=== PATIENT | male | born 1945 | race Caucasian/White ===

== ENCOUNTER 2016-09-23 15:56 | Inpatient (IN) | payer MEDICARE, BC ==
[2016-09-23] MEDS ORDERED: ASPIRIN 81 MG TAB.CHEW ONE (16:05)
[2016-09-23] MEDS ORDERED: ONDANSETRON HCL/PF 2 MG/ML VIAL IV ONE (16:10)
--- NOTE | 2016-09-23 16:13 | ERNOTE ---
Dyspnea - General Presenting Symptoms: shortness of breath Time Seen by Provider: 09/23/16 16:03 Source: patient - Immun/Allergies/Home Medications Immunizations: IMMUNIZATION HX Immunizations Up to Date Yes History of Influenza Vaccine Yes Hx Pneumococcal Vaccination Yes Allergies/Adverse Reactions: Allergies cephalexin Allergy (Verified 09/23/16 16:04) codeine Allergy (Verified 09/23/16 16:04) Iodinated Contrast Media - IV Dye Allergy (Verified 09/23/16 16:04) prednisone Allergy (Verified 09/23/16 16:04) simvastatin Allergy (Verified 09/23/16 16:04) Home Medications: HOME MEDICATIONS ALPRAZolam [Xanax] 0.25 mg PO HS 09/23/16 [Last Taken Unknown] Albuterol Sulfate [Ventolin Hfa] 1 puff IH Q6H 09/23/16 [Last Taken Unknown] Arformoterol Tartrate [Brovana] 15 mcg IH BID 09/23/16 [Last Taken Unknown] Budesonide [Pulmicort Respules] 2 ml IH BID 09/23/16 [Last Taken Unknown] Cyanocobalamin [Vitamin B-12] 1,000 mcg PO DAILY 09/23/16 [Last Taken Unknown] Cyclobenzaprine HCl 10 mg PO BID 09/23/16 [Last Taken Unknown] Escitalopram Oxalate [Lexapro] 20 mg PO DAILY 09/23/16 [Last Taken Unknown] Ipratropium [place] 0.2 mg IH QID 09/23/16 [Last Taken Unknown] Meclizine HCl [Antivert] 25 mg PO QID PRN 09/23/16 [Last Taken Unknown] Metoprolol Tartrate [Lopressor] 50 mg PO DAILY 09/23/16 [Last Taken Unknown] Nitroglycerin [Nitrostat] 1 tab SL Q5M 09/23/16 [Last Taken Unknown] Pantoprazole Sodium 40 mg PO DAILY 09/23/16 [Last Taken Unknown] Prednisone [Zac] 5 mg PO DAILY 09/23/16 [Last Taken Unknown] Tamsulosin HCl [Flomax] 0.4 mg PO DAILY 09/23/16 [Last Taken Unknown] Tramadol HCl [Rybix Odt] 50 mg PO Q6H PRN 09/23/16 [Last Taken Unknown] clonazePAM [Klonopin] 0.5 mg PO BID 09/23/16 [Last Taken Unknown] traZODone HCL [Desyrel] 100 mg PO HS 09/23/16 [Last Taken Unknown] - History of Present Illness Narrative: Patient felt acid come up his throat and then go down his throat again, with that he started to cough, feel very short of breath and have right sided chest pain. He has been using nebulizer treatments non stop since (12 hours) and is very anxious, dizzy and scared. He has a history of esophageal cancer that was treated with resection and using his stomach to replace it as well as a lobe resection of his lung. No further details available at this time Date (Duration): 09/23/16 Time (Timing): 03:00 Severity: severe Treatment PARTNER MARKETING INTERN: by patient, albuterol Initiating event: Reports: other Frequency of episodes: Reports: occassional episodes Review of Systems - Review of Systems Constitutional: Absent: recent illness, fever ENT: Present: sore throat Respiratory: Present: shortness of breath Cardiology: Present: chest pain Gastrointestinal/Abdominal: Present: See HPI Genitourinary: Present: no symptoms reported Neurological: Absent: headache - Patient's Past Medical History Patient History - Medical: Anxiety, GERD Patient History - Cardiac/Respiratory: Coronary Heart Disease, COPD, Hypertension, Hyperlipidemia, Myocardial Infarction, Home O2 Use Patient History - Cancer: Esophageal, Surgical Treatment Patient History - Surgical Procedures: Coronary Bypass Surgery, Other - Social History Smoking Status: Former smoker - Immunizations Immunizations Up to Date: Yes Hx Pneumococcal Vaccination: Yes History of Influenza Vaccine: Yes Physical Exam - Physical Exam General Appearance: Present: wd/wn, alert, moderate distress, anxious Eye Exam: Normal inspection: bilateral, PERRL: bilateral Neck: Present: normal inspection Respiratory: Present: no accessory muscle use, chest nontender, lungs clear, decreased breath sounds Cardiovascular/Chest: Present: tachycardia Gastrointestinal/Abdominal: Present: nontender, soft Extremity Exam: Present: no edema Neurological Exam: Present: alert, oriented, normal mood/affect Skin Exam: Present: normal color, warm/dry ED Progress - Results and Orders Patient's Lab Results:: I have reviewed the patient's lab results. - Vital Signs Patient's Vital Signs:: I have reviewed the patient's vital signs. Vital Signs: Vital Signs 09/23/16 15:58 Pulse Rate 131 H Respiratory 37 H Rate O2 Sat by Pulse 92 Oximetry - EKG EKG: NSR - sinus tachy, nonspecific ST T wave changes EKG read: Interp. by me - X-Ray X-Ray #1 X-Ray: chest - chronic changes, no definite infiltrate Interpretation: Interp. by me - Progress/Reassessment Chief Complaint: Dyspnea Progress Note-Subjective: 09/23/16 16:48 patient calmer, feeling slightly better discussed prednisone, patient does not remember being allergic to it and agrees to try it 09/23/16 17:37 patient much calmer ,discussed results 09/23/16 17:[address] Mccollum, okay to admit for aspiration pneumonia, start meropenim 09/23/16 19:25 patient calm, discussed admission Departure Clinical Impression: Aspiration pneumonia due to gastric secretions Qualifiers: Laterality: right Lung location: unspecified part of lung Qualified Code(s): J69.0 - Pneumonitis due to inhalation of food and vomit - Departure Disposition: [facility] Condition: Fair
[2016-09-23 16:27] LABS: Hematocrit 39.1 % (42.0-52.0); Hemoglobin 13.3 gm/dL (13.5-18.0); Mean Cell Volume 90.9 fl (78-100); Mean Corpuscular Hemoglobin 30.9 pg (27-31); Mean Platelet Volume 9.9 fl (6.0-9.5); Neutrophil # 12.1 K/mm3 (1.3-6.0); Neutrophil % 83.3 % (42-75.0); Platelet Count 195 K/mm3 (150-450); Red Cell Distribution Width 12.8 % (11.5-14.0); White Blood Count 14.5 K/mm3 (4.0-10.5)
--- OUTSIDE RECORDS SUMMARY | 2016-09-23 16:35 | XMS REPORT | Continuity of Care Document ---
:1945 Author Organization [employer] [place] [address] Care Team Providers Name Role Phone Justin Abad V Primary Care Provider [phone] Source Comments This disclosure is being made pursuant to the [employer] program and maynot contain all information available regarding this patient.[employer] Active Allergies and Adverse Reactions Allergen Noted Date Severity Reactions Comments Cephalexin 02/02/2012 High Hives,Nausea And Vomiting Codeine 02/02/2012 Low Nausea Only,Other (See pruritis Comments) Contrast 08/20/2012 High Anaphylaxis,Hives,Other Note: IV iodinated (See Comments) contrast material. CODED Prednisone 08/31/2015 Other (See Comments) Note: Emotional upset - use prednisone if really needs it for lungs. Simvastatin 08/31/2015 Medium Electrolyte Imbalance Current Medications Be aware that medications may not be up to date as of this document. Alwaysverify current medications with the patient. Prescription Sig. Disp. Refills Start Date End Date Status meclizine (ANTIVERT) Take 25 mg by Active 25 MG tablet mouth 3 (three) times daily as needed. Indications: Sensation of Spinning or Whirling Cyanocobalamin Inject 1,000 mg as 12/03/2012 Active (VITAMIN B-12 IJ) directed every 30 (thirty) days. 3rd of each month albuterol (PROVENTIL Inhale 2 puffs Active HFA;VENTOLIN HFA) 108 into the lungs 4 (90 BASE) MCG/ACT (four) times inhaler daily. May sub per insurance Indications: Exercise-Induced Bronchospasm oxygen Inhale 3 L/min Active into the lungs nightly. arformoterol Take 2 mLs by 115 mL 6 02/05/2016 Active (BROVANA) 15 MCG/2ML nebulization 2 NEBU (two) times daily. Take 2 mL (15 mcg total) by nebulization 2 (two) times daily. nitroGLYCERIN Place 1 tablet 25 tablet 3 03/19/2016 Active (NITROSTAT) 0.4 MG SL under the tongue tablet every 5 (five) minutes as needed. X 3 doses Indications: Acute Angina Pectoris ipratropium Take 0.5 mg by Active (ATROVENT) 0.02 % nebulization 4 nebulizer solution (four) times daily. tamsulosin HCl Take 1 capsule by 30 capsule 1 04/24/2016 Active (FLOMAX) 0.4 MG mouth daily. capsule clonazePAM (KLONOPIN) Take 1 tablet by 60 tablet 1 04/24/2016 Active 0.5 MG tablet mouth every 12 (twelve) hours. Indications: Feeling Anxious traZODone (DESYREL) Take 2 tablets by 60 tablet 1 04/24/2016 Active 100 MG tablet mouth nightly. acetaminophen Take 2 tablets by 100 tablet 1 04/24/2016 Active (TYLENOL) 325 MG mouth daily. tablet budesonide Take 2 mLs by 60 mL 1 04/24/2016 Active (PULMICORT) 0.5 nebulization 2 MG/2ML nebulizer (two) times daily. solution Rinse mouth after use. pantoprazole Sodium Take 40 mg by Active (PROTONIX) 40 MG pack mouth 2 (two) times daily. cyclobenzaprine Take 5 mg by mouth Active (FLEXERIL) 5 MG 3 (three) times tablet daily as needed for Muscle spasms. escitalopram Take 20 mg by Active (LEXAPRO) 20 MG mouth daily. tablet metoprolol succinate Take 50 mg by Active (TOPROL-XL) 50 MG 24 mouth daily. hr tablet traMADol (ULTRAM) 50 Take 1 tablet by 80 tablet 0 08/07/2016 Active MG tablet mouth every 6 (six) hours as needed. 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 H/O: CVA (cardiovascular accident) 08/23/2012 CAD Hypertension COPD (chronic obstructive pulmonary disease) ([facility]) Sleep apnea Overview: Oxygen at night 2 1/2 LITERS Resolved Problems Problem Noted Date Resolved Date Chest pain 07/23/2013 08/12/2013 Partial tear of rotator cuff(726.13) 03/01/2013 08/12/2013 Overview: right GERD (gastroesophageal reflux disease) 01/18/2013 08/12/2013 Fall 12/04/2012 08/12/2013 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 CVA (cerebral infarction) 08/19/2012 08/19/2012 Rhabdomyolysis 08/19/2012 08/13/2013 GERD (gastroesophageal reflux disease) 02/03/2012 08/12/2013 Zamudio's esophagus 02/03/2012 08/12/2013 Sleep apnea 08/13/2013 Overview: Oxygen at night 2 1/2 LITERS Most Recent Encounters Date Type Specialty Providers Description 09/11/2016 Telephone Neurosurgery Karen Harris, Results CORRECTIONS SPECIALIST 09/11/2016 Scanned Document Pulmonology Stephan Stauffer MD 09/10/2016 Hospital Encounter Radiology Neck pain 09/10/2016 Office Visit Neurosurgery Melinda Oscar MD Neck pain (Primary Dx); Failed spinal cord stimulator, sequela 09/10/2016 Telephone Pulmonology Libertad Cruz, Riki - nebulizer RN records medical necessity 09/10/2016 Ancillary Orders Neurosurgery Melinda Oscar MD Neck pain ( Primary Dx) 08/21/2016 Clinical Support Neurosurgery Karen Harris, Encounter for staple CORRECTIONS SPECIALIST removal (Primary Dx) 08/07/2016 Surgery Melinda Oscar MD REMOVE NEUROSTIMULATOR SPINAL CORD 08/06/2016 Anesthesia Event Melinda Serna MD 07/17/2016 Data Import 07/14/2016 Telephone Neurosurgery Wero Stewart RN Other 07/14/2016 Telephone Cardiology Kassandra Jimenez RN Other - EKG review by Dr Flores, pre surgery 07/14/2016 Scanned Document Pulmonology Melinda Salazar ARNP 07/14/2016 Scanned Document Pulmonology Melinda Salazar ARNP 07/09/2016 Hospital Encounter Cardiology Jarred Mackenzie, Failed spinal cord PA-C stimulator, initial encounter ([facility]) 07/09/2016 Hospital Encounter Radiology Jarred Mackenzie, Failed spinal cord PA-C stimulator, initial encounter ([facility]) 07/09/2016 Hospital Encounter Lab Jarred Mackenzie, Failed spinal cord PA-C stimulator, initial encounter ([facility]) 07/09/2016 Office Visit Pulmonology Melinda Salazar, Pulmonary emphysema, PROCUREMENT ANALYST unspecified emphysema type ([facility]) (Primary Dx); Gastroesophageal reflux disease with esophagitis; Preop respiratory exam; Personal history of nicotine dependence; Failed spinal cord stimulator, 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/2016 Transcribe Orders Jarred Mackenzie, Mechanical complication PA-C of dorsal column stimulator ([facility]) (Primary Dx) Immunizations Name Dates Previously Given Next Due Influenza High 05/06/2015 Influenza Split 05/17/2013,04/03/2012 Influenza, Inactivated, Trivalent, High Dose, 65Y and 05/28/2016 Older Pneumococcal Conjugate-13 07/25/2014 Pneumococcal Polysaccharide-23 08/19/2009 Tdap 12/04/2012 Social History Tobacco Use Types Packs/Day Years Used Date Former Smoker Cigarettes 2 45 Quit: 02/03/2000 Smokeless Tobacco: Never Used Tobacco Cessation:Counseling Given: Yes Comments: Alcohol Use Drinks/Week oz/Week Comments Yes 0 Standard drinks or equivalent 0.0 3-4 beers per week in the summer and on special occassions Last Filed Vital Signs Vital Sign Reading Time Taken Blood Pressure 136/86 09/10/2016 12:56 PM BORDEREAU CLERK Pulse 80 09/10/2016 12:56 PM BORDEREAU CLERK Temperature 36.5 C (97.7 F) 09/10/2016 12:56 PM BORDEREAU CLERK Respiratory Rate 16 09/10/2016 12:56 PM BORDEREAU CLERK Height 1.854 m (6' 1") 09/10/2016 12:56 PM BORDEREAU CLERK Weight 76.204 kg (168 lb) 09/10/2016 12:56 PM BORDEREAU CLERK Body Mass Index 22.17 09/10/2016 12:56 PM BORDEREAU CLERK Oxygen Saturation 95% 08/07/2016 11:30 AM BORDEREAU CLERK Plan of Care Patient Goal Type Goal Blood Pressure Blood Pressure below 140/90 Date Type Specialty Providers Description 12/16/2016 Appointment Pulmonology 12/16/2016 Appointment Pulmonology Melinda Salazar, [address]O [address] [address] [phone] (Fax) Health Maintenance Due Date Last Done Comments Hepatitis C Screening 1963 Well Adult Visit 1997 Zoster Vaccine 60+ 2007 Pneumococcal Low/Medium Risk 07/25/2015 07/25/2014, 65+ (2 of 2 - PPSV23) 08/19/2009 Tetanus/Pertussis (2 - Td) 12/04/2022 12/04/2012 Colonoscopy 05/08/2024 05/08/2014 AAA Screening (Medicare Completed 04/14/2016 Covered) Influenza Immunization Completed 05/28/2016, Additional history exists 05/06/2015, 05/17/2013 Procedures from Last 3 Months Procedure Name Priority Date/Time Associated Comments Diagnosis ANESTHESIA RECORD 08/08/2016 4:08 Results for this SCANNED PM BORDEREAU CLERK procedure are in the results section. REMOVE NEUROSTIMULATOR 08/07/2016 7:30 Failed spinal cord SPINAL CORD AM BORDEREAU CLERK stimulator (HCC) Case Notes H&P [facility] [id number] Special Needs [employer] Results from Last 3 Months XR CERVICAL SPINE 4 OR 5 VIEWS (09/10/2016 2:15 PM) Narrative EXAM: DX SPINE CERVICAL 4 OR 5 VIEWS CLINICIAN'S HISTORY: neck pain HISTORY REPORTED TO TECHNOLOGIST:Patient states pain in the center of his neck, fell from a ladder 3 weeks ago COMPARISON: CT scan of the cervical spine 12/04/2012 FINDINGS:Lateral neutral, flexion, extension and swimmer's views were obtained. Frontal and open mouth odontoid views were obtained. The prevertebral soft tissues are normal. The posterior spinal-laminal line appears contiguous. There is no obvious fracture or traumatic subluxation. Flexion and extension views preserved alignment. There is no spondylolisthesis or subluxation. Severe narrowing of the C3-C4, C4-C5 and C5-C6 disc spaces is noted. There is multilevel cervical spondylosis. The odontoid process is intact. The apices of the lungs are clear. Some calcified atherosclerotic disease is seen in the right carotid bifurcation. IMPRESSION: 1. Severe progressive cervical spondylosis C3-C4 through C6-C7. 2. No obvious fracture or traumatic subluxation. Electronically signed by: Hardy Salazar - 09/10/2016 2:59 PM Procedure Note Sachin, [facility] - Wed Sep 10, 2016 3:02 PM BORDEREAU CLERK EXAM: DX SPINE CERVICAL 4 OR 5 VIEWS CLINICIAN'S HISTORY: neck pain HISTORY REPORTED TO TECHNOLOGIST: Patient states pain in the center of his neck, fell from a ladder 3 weeks ago COMPARISON: CT scan of the cervical spine 12/04/2012 FINDINGS: Lateral neutral, flexion, extension and swimmer's views were obtained. Frontal and open mouth odontoid views were obtained. The prevertebral soft tissues are normal. The posterior spinal-laminal line appears contiguous. There is no obvious fracture or traumatic subluxation. Flexion and extension views preserved alignment. There is no spondylolisthesis or subluxation. Severe narrowing of the C3-C4, C4-C5 and C5-C6 disc spaces is noted. There is multilevel cervical spondylosis. The odontoid process is intact. The apices of the lungs are clear. Some calcified atherosclerotic disease is seen in the right carotid bifurcation. IMPRESSION: 1. Severe progressive cervical spondylosis C3-C4 through C6-C7. 2. No obvious fracture or traumatic subluxation. Electronically signed by: Hardy Salazar - 09/10/2016 2:59 PM ANESTHESIA RECORD SCANNED (08/08/2016 4:08 PM)PROTIME-INR (08/07/2016 6:23 AM) Component Value Range Protime 9.9 9.3-11.7 sec INR 1.0Comment: 0.9-1.1 If patient is on warfarin, then suggested therapeutic range is: VENOUS THROMBOSIS=2.0-3.0 PULMONARY EMBOLISM=2.0-3.0 ATRIAL FIBRILLATION=2.0-3.0 MECHANICAL HEART VALVE,AORTIC=2.0-3.0 MECHANICAL HEART VALVE,MITRAL=2.5-3.5 BIOPROSTHETIC VALVE, MITRAL FOR 3 MONTHS POST OP=2.0-3.0 RECURRENT SYSTEMIC EMBOLISM=2.5-3.5 For more information, see S Warfarin Prescribing Information. Test Performed at [facility], [address] [place]. APTT (08/07/2016 6:23 AM) Component Value Range PTT 22.5Comment:Test Performed at [facility], [address], [place], [place]. EKG VIEW FINAL (07/09/2016 1:18 PM)EKG 12 lead (07/09/2016 1:11 PM)Urinalysis with Reflex Testing (07/09/2016 1:00 PM) Component Value Range Specimen,UR CLN CATCH Color STRAW STRAW Clarity CLEAR CLEAR Glucose, Urinalysis NEG NEG mg/dL Bilirubin Urine NEG NEG Ketones, UA NEG NEG mg/dL Specific Burns 1.019 1.005-1.030 Blood NEG NEG pH 5.0 5.0-8.0 Protein NEG NEG mg/dL Urobilinogen 0.2 0.2-1.0 EU/dL Nitrite NEG NEG Leukocyte Esterase, UA NEG NEG Comment NONEComment:Test Performed at [facility], [address], [place], [place]. Specimen Cln Catch XR CHEST 2 VIEWS PA AND LAT (07/09/2016 12:59 PM) Narrative EXAM: DX CHEST PA + LATERAL CLINICIAN'S HISTORY: pre op clearance- former smoker HISTORY REPORTED TO TECHNOLOGIST:with emphysema. COMPARISON: Chest x-ray 10/03/2014 FINDINGS: No acute airspace consolidation. Postsurgical changes right hemithorax are stable with status post post gastric pull through for esophageal cancer. Status post CABG, this is unchanged as well. Small right pleural effusion and/or pleural thickening have not significantly changed. Elevation left hemidiaphragm is stable. Minimal associated atelectasis lower chest. Heart size and pulmonary vascularity within normal limits. Emphysema. No other significant change. IMPRESSION: 1. No acute airspace consolidation. 2. Chronic changes bilaterally are stable. Electronically signed by: Angélica Kilgore MD - 07/09/2016 1:16 PM Procedure Note Sachin, [facility] - ThuJul 09, 2016 1:18 PM BORDEREAU CLERK EXAM: DX CHEST PA + LATERAL CLINICIAN'S HISTORY: pre op clearance- former smoker HISTORY REPORTED TO TECHNOLOGIST: with emphysema. COMPARISON: Chest x-ray 10/03/2014 FINDINGS: No acute airspace consolidation. Postsurgical changes right hemithorax are stable with status post post gastric pull through for esophageal cancer. Status post CABG, this is unchanged as well. Small right pleural effusion and/or pleural thickening have not significantly changed. Elevation left hemidiaphragm is stable. Minimal associated atelectasis lower chest. Heart size and pulmonary vascularity within normal limits. Emphysema. No other significant change. IMPRESSION: 1. No acute airspace consolidation. 2. Chronic changes bilaterally are stable. Electronically signed by: Angélica Kilgore MD - 07/09/2016 1:16 PM CBC and differential (07/09/2016 12:40 PM) Component Value Range WBC 7.4 4.5-11.0 th/mm3 RBC 4.26(L) 4.54-5.77 mill/mm3 Hemoglobin 13.2(L) 14.0-17.7 g/dL Hematocrit 39.4(L) 40.0-52.0 % MCV 92.5 82.0-99.0 fL MCH 31.0 27.0-32.0 pg MCHC 33.5 32.0-36.0 g/dL Platelets 193 150-400 th/mm3 RDW 44.3 39.6-47.4 fL NRBC Absolute 0.00 0.00 th/mm3 Neutrophil % 60.0 35.0-65.0 % Neutrophils Absolute Count 4.43 1.30-6.00 th/mm3 Lymphocytes % 25.9 23.0-45.0 % Lymphocytes Absolute 1.91 1.50-3.50 th/mm3 Monocyte % 9.5 0.0-10.0 % Monos Absolute 0.70 <1.0 th/mm3 Eosinophils Relative % 3.3(H) 1.0-3.0 % Eosinophils Absolute Count 0.24 <0.7 th/mm3 Basophils % 0.9 0.0-1.0 % Basophils Absolute 0.07 <0.1 th/mm3 Immature Neutro % 0.4 0.0-1.0 % Immature Neutro 0.03Comment:Test Performed at . th/[address], [address], [place], [place]. Basic metabolic panel (07/09/2016 12:40 PM) Component Value Range Sodium 140 136-145 mmol/L Potassium 4.2 3.5-5.0 mmol/L Chloride 103 95-110 mmol/L CO2 31 21-32 mmol/L Glucose 96 70-99 mg/dL BUN, Blood 12 7-23 mg/dL Creatinine, Serum 1.00Comment:The analysis was performed 0.51-1.17 mg/dL using an isotope dilution mass spectrometry (IDMS) traceable methodology. Calcium 8.5 8.5-10.1 mg/dL Anion Gap 6 6-20 mmol/L BUN/Creatinine Ratio 12.0 10.0-24.0 Osmolality Calculated 279 275-295 mosm/Kg EGFR Non-/Andorran >60Comment: >60 GFR REFERENCE RANGE: >60 mL/min/1.73m2 -- An eGFR of > than, or=to 60, may indicate normal renal function or mildly decreased GFR. EGFR /Andorran >60Comment: >60 -- An eGFR of > than, or=to 60, may indicate normal renal function or mildly decreased GFR. Test Performed at [facility], [address], [place], [place].
--- OUTSIDE RECORDS SUMMARY | 2016-09-23 16:35 | XMS REPORT | Continuity of Care Document ---
:1945 Author Organization [facility] ([facility]) Address [address] [place] [address] Phone [phone] Care Team Providers Name Role Phone Alix Modi Primary Care Provider [phone] Source Comments This disclosure is being made pursuant to the Care Everywhere program, applicable federal and state laws, and may not contain all informaitonavailable regarding this patient.[facility] ([facility]) Active Allergies and Adverse Reactions Allergen Noted Date Severity Reactions Comments Cephalexin Nausea & Vomiting Codeine Nausea & Vomiting Current Medications Prescription Sig. Disp. Refills Start Date End Date Status atenolol 50 mg tablet Take 50 mg by mouth Active daily. clopidogrel (PLAVIX) 75 Take 75 mg by mouth Active mg tablet daily. Cyanocobalamin (VITAMIN place under the Active B-12) 1,000 mcg Subl tongue every month. ALBUTEROL INH Use by inhalation 4 Active times daily. budesonide (PULMICORT) Use 500 mcg by Active 0.5 mg/2 mL nebulizer inhalation 4 times suspension daily. zolpiDEM (AMBIEN) 5 mg Take 5 mg by mouth Active tablet at bedtime as needed. FORMOTEROL FUMARATE Use by inhalation 2 Active (FORADIL AEROLIZER INH) times daily. IPRATROPIUM BROMIDE use into the nose 4 Active (ATROVENT NA) times daily. omeprazole 40 mg Take 40 mg by mouth Active capsule daily. simvastatin 80 mg Take 80 mg by mouth Active tablet every evening. Theophylline 300 mg Tab Take 300 mg by mouth Active 2 times daily. ALPRAZolam 0.25 mg Take 0.25 mg by Active tablet mouth at bedtime as needed. tadalafil (CIALIS) 20 Take 20 mg by mouth Active mg tablet as needed. aspirin 81 mg EC tablet Take 81 mg by mouth Active daily. oxyCODONE-acetaminophen Take 1-2 Tabs by 60 Tab 0 02/21/2011 Active 5-325 mg per tablet mouth every 4 hours as needed for Pain. Indications: Pain trimethoprim-sulfametho Take 1 Tab by mouth 28 Tab 0 02/21/2011 Active xazole 160-800 mg per every 12 hours. tablet Indications: Bacterial Urinary Tract Infection sennosides (SENNA) 8.6 Take 1 Tab by mouth 30 Tab 11 02/21/2011 Active mg tablet daily. Indications: Bowel Evacuation, Constipation docusate 100 mg capsule Take 1 Cap by mouth 60 Cap 11 02/21/2011 Active 2 times daily. Indications: Constipation Active Problems Not on file Immunizations Name Dates Previously Given Next Due Td, adult unspecified 08/25/1996 Social History Tobacco Use Types Packs/Day Years Used Date Former Smoker Cigarettes Alcohol Use Drinks/Week oz/Week Comments Yes occasional Last Filed Vital Signs Vital Sign Reading Time Taken Blood Pressure 123/73 04/04/2011 2:30 PM CDT Pulse 74 04/04/2011 2:30 PM CDT Temperature 36.2 C (97.2 F) 04/04/2011 2:30 PM CDT Respiratory Rate 16 02/22/2011 4:00 AM CDT Height 1.81 m (5' 11.26") 02/20/2011 12:55 PM CDT Weight 78 kg (171 lb 15.3 oz) 02/20/2011 12:55 PM CDT Body Mass Index 23.81 02/20/2011 12:55 PM CDT Oxygen Saturation 92% 02/22/2011 4:00 AM CDT Plan of Care Health Maintenance Due Date Last Done Comments HCV Screening 1945 Hepatitis B Vaccine (1 of 3 - Primary 1945 Series) Tdap Vaccine 1956 Colonoscopy 03/12/1997 Prostate Cancer Screening 1997 Lipid Disorder Screening 05/15/2003 05/15/1998, 08/14/1997 Td Vaccine 08/25/2006 08/25/1996 Zoster Vaccine 2007 Pneumococcal Vaccine (1 of 2 - PCV13) 2012 Influenza Vaccine: Seasonal (#1) 03/03/2016 Results from Last 3 Months Not on file
[2016-09-23] MEDS ORDERED: ONDANSETRON HCL/PF 2 MG/ML VIAL ONE (16:39)
[2016-09-23 16:47] LABS: ALT 31 U/L (19-67); AST 32 U/L (0-48); Albumin * 3.8 gm/dl (3.4-5.0); Alkaline Phosphatase * 59 U/L (50-170); Anion Gap 14.7 mmol/L (6.8-13.8); BNP * 412 pg/mL (5-350); BUN/Creatinine Ratio 10.3 (9.0-21.6); Bilirubin, Total 0.7 mg/dL (0.0-1.1); Blood Urea Nitrogen 10 mg/dL (6-23); Ca. Corrected For Albumin 9.5 mg/dL (8.4-10.2); Calcium * 9.7 mg/dL (7.9-10.9); Carbon Dioxide 25.6 mmol/L (24-32.6); Chloride 103 mmol/L (97-106); Glucose * 123 mg/dL (70-110); Potassium 4.3 mmol/L (3.4-4.6); Sodium 139 mmol/L (132-142); Total Protein 7.3 gm/dL (6.2-8.2)
[2016-09-23] MEDS ORDERED: METHYLPREDNISOLONE SOD SUCC/PF 125 MG/2 ML VIAL IV ONE (16:49)
[2016-09-23 16:52] LABS: Troponin I Less than 0.017 ng/ml (0.00-0.10)
[2016-09-23] MEDS ORDERED: METHYLPREDNISOLONE SOD SUCC/PF 125 MG/2 ML VIAL ONE (17:16)
[2016-09-23] MEDS ORDERED: MECLIZINE HCL 25 MG TABLET PO PRN (17:48)
[2016-09-23] MEDS ORDERED: ALBUTEROL SULFATE 2.5 MG/0.5 ML VIAL.NEB IH PRN (17:51)
--- OUTSIDE RECORDS SUMMARY | 2016-09-23 17:52 | XMS REPORT | Continuity of Care Document ---
:1945 Author Organization [facility] ([facility]) Address [address] [place] [address] Phone [phone] Care Team Providers Name Role Phone Alix Modi Primary Care Provider [phone] Source Comments This disclosure is being made pursuant to the Care Everywhere program, applicable federal and state laws, and may not contain all informaitonavailable regarding this patient.[facility] ([facility]) Active Allergies and Adverse Reactions Allergen Noted [...]
--- OUTSIDE RECORDS SUMMARY | 2016-09-23 17:52 | XMS REPORT | Continuity of Care Document ---
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 Gait abnormality 04/18/2016 Abdominal aortic aneurysm ([facility]) 04/14/2016 Hyperlipidemia 08/31/2015 Palpitations 08/31/2015 Depressive disorder, not elsewhere classified 04/05/2015 Depressed 04/03/2015 Suicide attempt ([facility]) 04/03/2015 Hemoptysis 10/03/2014 Sepsis ([facility]) 08/28/2013 Urinary tract infection, site not specified 08/28/2013 COPD (chronic obstructive pulmonary disease) ([facility]) 08/28/2013 Diarrhea 08/28/2013 Zamudio's esophagus 01/18/2013 H/O: CVA (cardiovascular accident) 08/23/2012 CAD Hypertension COPD (chronic obstructive pulmonary disease) ([facility]) Sleep apnea Overview: Oxygen at night 2 [...] Description 09/11/2016 Telephone Neurosurgery Karen Harris, Results DRUM STENCILER 09/11/2016 Scanned Document Pulmonology Stephan Stauffer MD 09/10/2016 Hospital Encounter Radiology Neck pain 09/10/2016 Office Visit Neurosurgery Melinda Oscar MD Neck pain (Primary Dx); Failed spinal cord stimulator, sequela 09/10/2016 Telephone Pulmonology Libertad Cruz, Riki - nebulizer RN records medical necessity 09/10/2016 Ancillary Orders Neurosurgery Melinda Oscar MD Neck pain ( Primary Dx) 08/21/2016 Clinical Support Neurosurgery Karen Harris, Encounter for staple DRUM STENCILER removal (Primary Dx) 08/07/2016 Surgery Melinda Oscar [...] Failed spinal cord PA-C stimulator, initial encounter ([facility]) 07/09/2016 Hospital Encounter Radiology Jarred Mackenzie, Failed spinal cord PA-C stimulator, initial encounter ([facility]) 07/09/2016 Hospital Encounter Lab Jarred Mackenzie, Failed spinal cord PA-C stimulator, initial encounter ([facility]) 07/09/2016 Office Visit Pulmonology Melinda Salazar, Pulmonary emphysema, [employer]PERVIS[employer] MARBLE unspecified emphysema type ([facility]) (Primary Dx); Gastroesophageal reflux disease with esophagitis; Preop respiratory exam; Personal history of nicotine dependence; Failed spinal cord stimulator, 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/2016 Transcribe Orders Jarred Mackenzie, Mechanical complication PA-C of dorsal column stimulator ([facility]) (Primary Dx) Immunizations Name Dates Previously Given [...] Taken Blood Pressure 136/86 09/10/2016 12:56 PM [facility] [employer] [facility] Pulse 80 09/10/2016 12:56 PM [employer] [employer] [facility] Temperature 36.5 C (97.7 F) 09/10/2016 12:56 PM [facility] [employer] [facility] Respiratory Rate 16 09/10/2016 12:56 PM [facility] [employer] [facility] Height 1.854 m (6' 1") 09/10/2016 12:56 PM [facility] [employer] [facility] Weight 76.204 kg (168 lb) 09/10/2016 12:56 PM [facility] [employer] [facility] Body Mass Index 22.17 09/10/2016 12:56 PM [facility] [employer] [facility] Oxygen Saturation 95% 08/07/2016 11:30 AM [facility] [employer] [facility] Plan of Care Patient Goal Type Goal Blood Pressure Blood Pressure below 140/90 Date Type Specialty Providers Description 12/16/2016 Appointment Pulmonology 12/16/2016 Appointment Pulmonology Melinda Salazar, LOBO [address] [address] [phone] (Fax) Health Maintenance Due Date Last Done [...] 08/08/2016 4:08 Results for this SCANNED PM [employer] procedure are in the results section. REMOVE NEUROSTIMULATOR 08/07/2016 7:30 Failed spinal cord SPINAL CORD AM [employer] stimulator (HCC) Case Notes H&P [facility]ar[facility] [id number] Special Needs [employer] Results from Last 3 [...] - Wed Sep 10, 2016 3:02 PM [facility] [employer] [facility] EXAM: DX SPINE CERVICAL 4 OR 5 [...] S Warfarin Prescribing Information. Test Performed at [facility], [address] [place]. APTT (08/07/2016 6:23 AM) Component Value Range PTT 22.5Comment:Test Performed at [facility], [address], [place], [place]. EKG VIEW FINAL (07/09/2016 1:18 PM)EKG 12 lead (07/09/2016 1:11 PM)Urinalysis with Reflex Testing (07/09/2016 1:00 PM) Component Value Range Specimen,UR CLN CATCH Color STRAW STRAW Clarity CLEAR CLEAR Glucose, Urinalysis NEG NEG mg/dL Bilirubin Urine NEG NEG Ketones, UA NEG NEG mg/dL Specific [place] 1.019 1.005-1.030 Blood NEG NEG pH 5.0 5.0-8.0 Protein NEG NEG mg/dL Urobilinogen 0.2 0.2-1.0 EU/dL Nitrite NEG NEG Leukocyte Esterase, UA NEG NEG Comment NONEComment:Test Performed at [facility], [address], [place], [place]. Specimen Cln Catch XR CHEST 2 [...] Hlseven - ThuJul 09, 2016 1:18 PM [facility] [employer] [facility] EXAM: DX CHEST PA + LATERAL CLINICIAN'S [...] % Immature Neutro 0.03Comment:Test Performed at . th/[address], [address], [place], [place]. Basic metabolic panel (07/09/2016 12:40 PM) [...] 10.0-24.0 Osmolality Calculated 279 275-295 mosm/Kg EGFR Non-/[place]ander >60Comment: >60 GFR REFERENCE RANGE: >60 mL/min/1.73m2 -- An eGFR of > than, or=to 60, may indicate normal renal function or mildly decreased GFR. EGFR /[place] >60Comment: >60 -- An eGFR of > than, or=to 60, may indicate normal renal function or mildly decreased GFR. Test Performed at [facility], [address], [place], [place].
[2016-09-23] MEDS ORDERED: METHYLPREDNISOLONE SOD SUCC 60 MG in WATER FOR INJ.,BACTERIOSTATIC 0 ML IV SCH (18:00)
[2016-09-23] MEDS: MEROPENEM 1 GM in NORMAL SALINE 100 ML IV SCH (19:00)
[2016-09-23] MEDS ORDERED: NON-FORMULARY 1 DOSE DOSE (Arformoterol Tartrate [Brovana] 15 MCG) IH SCH (21:00)
[2016-09-23] MEDS ORDERED: AZITHROMYCIN 250 MG TABLET PO SCH ×2 (21:00→22:00)
[2016-09-23] MEDS: IPRATROPIUM BROMIDE 0.5 MG/2.5 ML VIAL.NEB IH SCH (21:30)
[2016-09-23] MEDS ORDERED: NITROGLYCERIN 0.4 MG/TAB BTL SL PRN (22:12)
[2016-09-23] MEDS: NORMAL SALINE 1,000 ML IV PRN (22:13)
[2016-09-23] MEDS: ENOXAPARIN SODIUM 40 MG/0.4 ML SYRG SC SCH (22:13)
[2016-09-23] MEDS: clonazePAM 0.5 MG TABLET PO SCH (22:15)
[2016-09-23] MEDS ORDERED: AZITHROMYCIN 250 MG TABLET PO ONE (22:15)
[2016-09-23] MEDS: traZODone HCL 50 MG TABLET PO SCH (22:15)
[2016-09-23] MEDS: ALPRAZolam 0.25 MG TABLET PO SCH (22:16)
[2016-09-23] MEDS: ALBUTEROL SULFATE 2.5 MG/0.5 ML VIAL.NEB IH PRN (22:33)
[2016-09-23] MEDS: BUDESONIDE 0.5 MG/2 ML VIAL.NEB IH SCH (22:56)
--- NOTE | 2016-09-23 23:50 | HP ---
Chief Complaint - Chief Complaint Date of Service: 09/23/16 Time of Service: 18:30 Chief Complaint: Aspirated stomach contents History of Present Illness: At 0300 today this 71 y/o man with COPD felt acid come up into his throat while in bed and then go down into his lungs. With that he started to cough, feel very short of breath and have right sided chest pain. He used nebulizer treatments non stop for about 12 hours and became very anxious, dizzy and scared. He finally came to the [facility] ER where he was examined and then admitted with a working diagnosis of aspiration pneumonitis. He has a history of esophageal cancer that was treated with resection in 2009 and with a stomach pull up to replace his esophagus as well as a lobe resection of his lung. He sleeps with his torso partially elevated on a hospital bed at home. At the time of my exam, he was feeling moderately better. He has received nebulizer treatments, IV steroids and IV antibiotics. - Patient's Past Medical History Patient History - Medical: Anxiety, GERD Patient History - Cardiac/Respiratory: Coronary Heart Disease, COPD, Hypertension, Hyperlipidemia, Myocardial Infarction, Home O2 Use Patient History - Cancer: Esophageal, Surgical Treatment Patient History - Surgical Procedures: Coronary Bypass Surgery, Other - Social History Smoking Status: Former smoker - Immunizations Immunizations Up to Date: Yes Hx Pneumococcal Vaccination: Yes History of Influenza Vaccine: Yes Review Of Systems (GEN) - Review of Systems Generalized/Overall Review: Present: No Symptoms Reported EENTM: Present: No Symptoms Reported Respiratory: Present: Cough, Shortness of Breath, Wheezing Cardiac: Present: Chest Pain Abdominal: Present: No Symptoms Reported Genitourinary: Present: No Symptoms Reported Musculoskeletal: Present: No Symptoms Reported Neurological: Present: No Symptoms Reported Skin: Present: No Symptoms Reported Endocrine: Present: No Symptoms Reported Misc: All systems neg except as marked Immunizations: IMMUNIZATION HX Immunizations Up to Date Yes History of Influenza Vaccine Yes Hx Pneumococcal Vaccination Yes Allergies/Adverse Reactions: Allergies Allergy/AdvReac Type Severity Reaction Status Date / Time cephalexin Allergy Verified 09/23/16 23:56 codeine Allergy Verified 09/23/16 23:56 Iodinated Contrast Media - Allergy Verified 09/23/16 23:56 IV Dye prednisone Allergy Verified 09/23/16 23:56 simvastatin Allergy Verified 09/23/16 23:56 Home Medications: HOME MEDICATIONS ALPRAZolam [Xanax] 0.25 mg PO HS 09/23/16 [Last Taken Unknown] Albuterol Sulfate [Ventolin Hfa] 1 puff IH Q6H 09/23/16 [Last Taken Unknown] Arformoterol Tartrate [Brovana] 15 mcg IH BID 09/23/16 [Last Taken Unknown] Budesonide [Pulmicort Respules] 2 ml IH BID 09/23/16 [Last Taken Unknown] Cyanocobalamin [Vitamin B-12] 1,000 mcg PO DAILY 09/23/16 [Last Taken Unknown] Cyclobenzaprine HCl 10 mg PO BID 09/23/16 [Last Taken Unknown] Escitalopram Oxalate [Lexapro] 20 mg PO DAILY 09/23/16 [Last Taken Unknown] Ipratropium Wren 0.2 mg IH QID 09/23/16 [Last Taken Unknown] Meclizine HCl [Antivert] 25 mg PO QID PRN 09/23/16 [Last Taken Unknown] Metoprolol Tartrate [Lopressor] 50 mg PO DAILY 09/23/16 [Last Taken Unknown] Nitroglycerin [Nitrostat] 1 tab SL Q5M 09/23/16 [Last Taken Unknown] Pantoprazole Sodium 40 mg PO DAILY 09/23/16 [Last Taken Unknown] Prednisone [Zac] 5 mg PO DAILY 09/23/16 [Last Taken Unknown] Tamsulosin HCl [Flomax] 0.4 mg PO DAILY 09/23/16 [Last Taken Unknown] Tramadol HCl [Rybix Odt] 50 mg PO Q6H PRN 09/23/16 [Last Taken Unknown] clonazePAM [Klonopin] 0.5 mg PO BID 09/23/16 [Last Taken Unknown] traZODone HCL [Desyrel] 100 mg PO HS 09/23/16 [Last Taken Unknown] Exam - Exam Vital Signs: Vital Signs - Last Taken Selected Entries 09/23/16 09/23/16 09/23/16 15:58 16:11 16:26 Pulse Rate 131 H 129 H 115 H Pulse Rhythm Regular Pulse Strength Normal Respiratory 37 H 32 H 28 H Rate Respiratory Normal Depth Respiratory Normal Effort Short of Breath Labored Respiratory Normal Pattern Blood Pressure 127/105 Blood Pressure Sitting Position O2 Sat by Pulse 92 93 93 Oximetry Oxygen Delivery Nasal Cannula Nasal Cannula Nasal Cannula Method Oxygen Flow 2 Rate Constitutional: Present: Alert, Oriented x3, Cooperative, Well developed, Well nourished, No distress ENT Exam: Present: normal ENT inspection, hearing grossly normal, pharynx normal , TMs normal Eye Exam: bilateral eye: normal inspection, PERRL, EOMI Neck: Present: normal inspection Back Exam: Present: normal inspection Respiratory: Present: decreased breath sounds, wheezing, expiration (prolonged) Cardiovascular/Chest: Present: regular rate, rhythm, no murmur Abdomen: Present: Normal bowel sounds, soft, nontender, nondistended, no rebound tenderness, no hepatospenomegaly, no masses Extremity: Present: non-tender, normal inspection, no pedal edema Skin Exam: Present: normal color, warm/dry, no cyanosis Neurologic: Present: alert, oriented x 3 Appearance: Present: appropriate appearance, appropriate insight, neat, no memory impairment Eye contact: Present: cooperative, good eye contact, normal speech Thoughts: Present: normal thought pattern Diagnostic Studies: Laboratory Results WBC 14.5 K/mm3 (4.0-10.5) H 09/23/16 16:20 RBC 4.30 M/mm3 (4.7-6.0) L 09/23/16 16:20 Hgb 13.3 gm/dL (13.5-18.0) L 09/23/16 16:20 Hct 39.1 % (42.0-52.0) L 09/23/16 16:20 MCV 90.9 fl (78-100) 09/23/16 16:20 MCH 30.9 pg (27-31) 09/23/16 16:20 MCHC 34.0 g/dl (32-36) 09/23/16 16:20 RDW 12.8 % (11.5-14.0) 09/23/16 16:20 Plt Count 195 K/mm3 (150-450) 09/23/16 16:20 MPV 9.9 fl (6.0-9.5) H 09/23/16 16:20 Immature Gran % (Auto) 0.50 % (0.001-0.429) H 09/23/16 16:20 Immature Gran # (Auto) 0.07 K/mm3 (0.000-0.0310) H 09/23/16 16:20 Neutrophils % 83.3 % (42-75.0) H 09/23/16 16:20 Lymphocytes % 7.5 % (20-51) L 09/23/16 16:20 Monocytes % 7.5 % (0.0-9) 09/23/16 16:20 Eosinophils % 0.8 % (0.0-3.0) 09/23/16 16:20 Basophils % 0.4 % (0.0-1.0) 09/23/16 16:20 Nucleated RBC % 0.0 k/mm3 (0-1) 09/23/16 16:20 Neutrophils # 12.1 K/mm3 (1.3-6.0) H 09/23/16 16:20 Lymphocytes # 1.1 k/mm3 (1.5-3.5) L 09/23/16 16:20 Monocytes # 1.1 k/mm3 (0.0-1.0) H 09/23/16 16:20 Eosinophils # 0.1 k/mm3 (0.0-0.7) 09/23/16 16:20 Absolute Basophils 0.1 k/mm3 (0.0-0.1) 09/23/16 16:20 pCO2 38.3 mmHg (35.0-48.0) 09/23/16 17:20 pO2 73.8 mmHg (83.0-108.0) L 09/23/16 17:20 HCO3 24.1 mmol/L (21.0-28.0) 09/23/16 17:20 Total CO2 25.2 mmol/L (19.0-24.0) H 09/23/16 17:20 Base Excess -0.2 mmol/L (-2.0-3.0) 09/23/16 17:20 ABG pH 7.42 (7.35-7.45) 09/23/16 17:20 ABG O2 Sat (Measured) 95.1 % (94.0-98.0) 09/23/16 17:20 Sodium 139 mmol/L (132-142) 09/23/16 16:20 Plasma Sodium 139 mmol/L (130-142) 09/23/16 16:20 Potassium 4.3 mmol/L (3.4-4.6) 09/23/16 16:20 Chloride 103 mmol/L (97-106) 09/23/16 16:20 Carbon Dioxide 25.6 mmol/L (24-32.6) 09/23/16 16:20 Anion Gap 14.7 mmol/L (6.8-13.8) H 09/23/16 16:20 BUN 10 mg/dL (6-23) 09/23/16 16:20 Creatinine 0.97 mg/dL (0.4-1.4) 09/23/16 16:20 Est GFR (Non-Af Amer) 82 mL/min (60-130) 09/23/16 16:20 BUN/Creatinine Ratio 10.3 (9.0-21.6) 09/23/16 16:20 Random Glucose 123 mg/dL (70-110) H 09/23/16 16:20 Lactic Acid, Venous 1.3 mmol/L (0.4-2.0) 09/23/16 16:20 Calcium 9.7 mg/dL (7.9-10.9) 09/23/16 16:20 Calcium Adj for Albumin 9.5 mg/dL (8.4-10.2) 09/23/16 16:20 Total Bilirubin 0.7 mg/dL (0.0-1.1) 09/23/16 16:20 AST 32 U/L (0-48) 09/23/16 16:20 ALT 31 U/L (19-67) 09/23/16 16:20 Alkaline Phosphatase 59 U/L (50-170) 09/23/16 16:20 Troponin I Less than 0.017 ng/ml (0.00-0.10) 09/23/16 16:20 B-Natriuretic Peptide 412 pg/mL (5-350) H 09/23/16 16:20 Total Protein 7.3 gm/dL (6.2-8.2) 09/23/16 16:20 Albumin 3.8 gm/dl (3.4-5.0) 09/23/16 16:20 Assessment/Plan - Narrative Narrative: Follow labs. Repeat CXR. IV antibiotics and steroids. Nebulizer treatments. Estimate stay of three days. - Assessment/Plan (1) COPD (chronic obstructive pulmonary disease) Problem: Acute (2) Aspiration pneumonia due to gastric secretions Problem: Acute Qualifiers: Laterality: right Lung location: unspecified part of lung Qualified Code( s): J69.0 - Pneumonitis due to inhalation of food and vomit (3) CAD (coronary artery disease) Problem: Chronic Qualifiers: Coronary Disease-Associated Artery/Lesion type: [place] artery [place] vs. transplanted heart: [place] heart Associated angina: without angina Qualified Code(s): I25.10 - Atherosclerotic heart disease of [place] coronary artery without angina pectoris (4) Esophageal cancer Problem: Inactive Qualifiers: Malignant neoplasm of esophagus location: unspecified location Qualified Code(s): C15.9 - Malignant neoplasm of esophagus, unspecified (5) Hypertension Problem: Chronic Qualifiers: Hypertension type: essential hypertension Qualified Code(s): I10 - Essential (primary) hypertension (6) Hyperlipidemia Problem: Chronic Qualifiers: Hyperlipidemia type: unspecified Qualified Code(s): E78.5 - Hyperlipidemia , unspecified
[2016-09-24] MEDS: PANTOPRAZOLE SODIUM 40 MG TABLET.EC PO SCH ×3 (00:04→21:46)
[2016-09-24] MEDS ORDERED: METHYLPREDNISOLONE SOD SUCC/PF 125 MG/2 ML VIAL IV SCH (02:00)
[2016-09-24] MEDS: MEROPENEM 1 GM in NORMAL SALINE 100 ML IV SCH ×3 (02:47→18:01)
[2016-09-24] MEDS: BUDESONIDE 0.5 MG/2 ML VIAL.NEB IH SCH ×3 (06:00→19:08)
[2016-09-24] MEDS: IPRATROPIUM BROMIDE 0.5 MG/2.5 ML VIAL.NEB IH SCH ×5 (06:01→19:06)
[2016-09-24 06:27] LABS: Hematocrit 36.8 % (42.0-52.0); Hemoglobin 12.4 gm/dL (13.5-18.0); Mean Cell Volume 92.5 fl (78-100); Mean Corpuscular Hemoglobin 31.2 pg (27-31); Mean Corpuscular Hgb Conc 33.7 g/dl (32-36); Mean Platelet Volume 10.1 fl (6.0-9.5); Neutrophil # 12.6 K/mm3 (1.3-6.0); Neutrophil % 92.2 % (42-75.0); Platelet Count 174 K/mm3 (150-450); Red Blood Count 3.98 M/mm3 (4.7-6.0); Red Cell Distribution Width 12.7 % (11.5-14.0); White Blood Count 13.6 K/mm3 (4.0-10.5)
[2016-09-24 06:48] LABS: Albumin * 3.2 gm/dl (3.4-5.0); Anion Gap 13.7 mmol/L (6.8-13.8); BUN/Creatinine Ratio 14.3 (9.0-21.6); Bilirubin, Total 0.5 mg/dL (0.0-1.1); Ca. Corrected For Albumin 9.1 mg/dL (8.4-10.2); Calcium * 8.8 mg/dL (7.9-10.9); Carbon Dioxide 25.7 mmol/L (24-32.6); Potassium 4.4 mmol/L (3.4-4.6); T4 Free * 1.05 ng/dL (0.76-1.46); TSH * 0.459 uIU/mL (0.358-3.74); Total Protein 6.9 gm/dL (6.2-8.2)
[2016-09-24] MEDS: NORMAL SALINE 1,000 ML IV PRN ×2 (08:53→21:45)
[2016-09-24] MEDS ORDERED: TAMSULOSIN HCL 0.4 MG CAP.SR.24H PO SCH ×2 (09:00→18:00)
[2016-09-24] MEDS ORDERED: METOPROLOL TARTRATE 50 MG TABLET PO SCH (09:00)
[2016-09-24] MEDS ORDERED: PANTOPRAZOLE SODIUM 40 MG TABLET.EC PO SCH (09:00)
[2016-09-24] MEDS: clonazePAM 0.5 MG TABLET PO SCH ×2 (09:56→21:46)
[2016-09-24] MEDS: AZITHROMYCIN 250 MG TABLET PO SCH (09:57)
[2016-09-24] MEDS: CYANOCOBALAMIN 1,000 MCG TABLET PO SCH ×2 (09:58→10:44)
[2016-09-24] MEDS: ESCITALOPRAM OXALATE 10 MG TAB PO SCH (09:58)
[2016-09-24] MEDS: METHYLPREDNISOLONE SOD SUCC 60 MG in WATER FOR INJ.,BACTERIOSTATIC 0 ML IV SCH ×2 (10:45→19:36)
[2016-09-24] MEDS ORDERED: IPRATROPIUM BROMIDE 0.5 MG/2.5 ML VIAL.NEB IH SCH (11:00)
[2016-09-24] MEDS: FORMOTEROL FUMARATE 20 MCG/2 ML VIAL IH SCH ×2 (11:15→19:08)
[2016-09-24] MEDS ORDERED: NITROGLYCERIN 0.4 MG/TAB BTL SL PRN (11:52)
--- NOTE | 2016-09-24 18:03 | PN ---
Subjective - Date and Time Seen Date: 09/24/16 Time: 07:00 Subjective Narrative: Improving. Coughing less. Less chest pain. Less SOB. Hungry. Objective - Review of Systems Generalized/Overall Review: Reports: Malaise EENTM: Reports: No Symptoms Reported Respiratory: Reports: Cough, Shortness of Breath, Wheezing Cardiac: Reports: Chest Pain Abdominal: Reports: No Symptoms Reported Genitourinary Symptoms: Reports: No Symptoms Reported Musculoskeletal Complaints: Reports: No Symptoms Reported Neurological: Reports: No Symptoms Reported Skin: Reports: No Symptoms Reported Endocrine: Reports: No Symptoms Reported Misc: All systems neg except as marked - heart burn better on twice daily protonix. - Vitals Vitals: Last Vital Signs Temp 36.5 C 09/24/16 13:35 Pulse 88 09/24/16 14:44 Resp 21 H 09/24/16 14:44 BP 113/72 09/24/16 13:35 Pulse Ox 92 09/24/16 14:34 - Exam Constitutional: Present: Alert, Oriented x3, Cooperative, Well developed, Well nourished, No distress ENT Exam: Present: normal ENT inspection, hearing grossly normal Neck: Present: normal inspection Respiratory: Present: decreased breath sounds, wheezing - wheezing is looser than last night., expiration (prolonged) Cardiovascular/Chest: Present: regular rate, rhythm, no murmur Abdomen: Present: Normal bowel sounds, soft, nontender, nondistended, no rebound tenderness, no hepatospenomegaly, no masses Extremity: Present: normal inspection, no pedal edema Neurologic: Present: alert, oriented x 3 Appearance: Present: appropriate appearance, appropriate insight, neat, no memory impairment Eye contact: Present: cooperative, good eye contact, normal speech Thoughts: Present: normal thought pattern Assessment/Plan Plan Narrative: Continue IV antibiotics, IV steroids, breathing treatments, supplemental O2. Follow labs. - Problems/Diagnosis (1) COPD (chronic obstructive pulmonary disease) Problem: Acute (2) Aspiration pneumonia due to gastric secretions Problem: Acute Qualifiers: Laterality: right Lung location: unspecified part of lung Qualified Code( s): J69.0 - Pneumonitis due to inhalation of food and vomit (3) CAD (coronary artery disease) Problem: Chronic Qualifiers: Coronary Disease-Associated Artery/Lesion type: [place] artery [place] vs. transplanted heart: [place] heart Associated angina: without angina Qualified Code(s): I25.10 - Atherosclerotic heart disease of [place] coronary artery without angina pectoris (4) Esophageal cancer Problem: Inactive Qualifiers: Malignant neoplasm of esophagus location: unspecified location Qualified Code(s): C15.9 - Malignant neoplasm of esophagus, unspecified (5) Hypertension Problem: Chronic Qualifiers: Hypertension type: essential hypertension Qualified Code(s): I10 - Essential (primary) hypertension (6) Hyperlipidemia Problem: Chronic Qualifiers: Hyperlipidemia type: unspecified Qualified Code(s): E78.5 - Hyperlipidemia , unspecified (7) Supplemental oxygen dependent Problem: Chronic Narrative: while sleeping and when dyspneic, nasal cannula
[2016-09-24] MEDS: ALBUTEROL SULFATE 2.5 MG/0.5 ML VIAL.NEB IH PRN (21:36)
[2016-09-24] MEDS: ENOXAPARIN SODIUM 40 MG/0.4 ML SYRG SC SCH (21:46)
[2016-09-24] MEDS: ALPRAZolam 0.25 MG TABLET PO SCH (21:46)
[2016-09-24] MEDS: traZODone HCL 50 MG TABLET PO SCH (21:46)
[2016-09-25] MEDS: METHYLPREDNISOLONE SOD SUCC 60 MG in WATER FOR INJ.,BACTERIOSTATIC 0 ML IV SCH ×3 (02:34→19:00)
[2016-09-25] MEDS: MEROPENEM 1 GM in NORMAL SALINE 100 ML IV SCH ×3 (02:34→17:10)
[2016-09-25] MEDS: ALBUTEROL SULFATE 2.5 MG/0.5 ML VIAL.NEB IH PRN (02:38)
[2016-09-25 06:18] LABS: Hematocrit 33.6 % (42.0-52.0); Mean Cell Volume 94.4 fl (78-100); Mean Corpuscular Hemoglobin 30.9 pg (27-31); Mean Corpuscular Hgb Conc 32.7 g/dl (32-36); Mean Platelet Volume 10.5 fl (6.0-9.5); Neutrophil # 12.4 K/mm3 (1.3-6.0); Neutrophil % 91.1 % (42-75.0); Platelet Count 173 K/mm3 (150-450); Red Blood Count 3.56 M/mm3 (4.7-6.0); Red Cell Distribution Width 12.7 % (11.5-14.0); White Blood Count 13.7 K/mm3 (4.0-10.5)
[2016-09-25 06:31] LABS: Anion Gap 11.4 mmol/L (6.8-13.8); BUN/Creatinine Ratio 20.6 (9.0-21.6); Calcium * 8.6 mg/dL (7.9-10.9); Carbon Dioxide 26.7 mmol/L (24-32.6); Estimated Creat Clear 81.2; Potassium 4.1 mmol/L (3.4-4.6)
[2016-09-25] MEDS: IPRATROPIUM BROMIDE 0.5 MG/2.5 ML VIAL.NEB IH SCH ×4 (07:56→19:23)
[2016-09-25] MEDS: BUDESONIDE 0.5 MG/2 ML VIAL.NEB IH SCH ×2 (07:57→19:25)
[2016-09-25] MEDS: FORMOTEROL FUMARATE 20 MCG/2 ML VIAL IH SCH ×2 (07:58→19:25)
[2016-09-25] MEDS: METOPROLOL SUCCINATE 50 MG TABLET.SA PO SCH (08:19)
[2016-09-25] MEDS: PANTOPRAZOLE SODIUM 40 MG TABLET.EC PO SCH ×2 (08:20→23:05)
[2016-09-25] MEDS: ESCITALOPRAM OXALATE 10 MG TAB PO SCH (08:20)
[2016-09-25] MEDS: CYANOCOBALAMIN 1,000 MCG TABLET PO SCH (08:22)
[2016-09-25] MEDS: AZITHROMYCIN 250 MG TABLET PO SCH (08:23)
[2016-09-25] MEDS: clonazePAM 0.5 MG TABLET PO SCH ×2 (08:30→23:04)
[2016-09-25] MEDS: ACETAMINOPHEN 325 MG TABLET PO PRN (09:59)
[2016-09-25] MEDS: NORMAL SALINE 1,000 ML IV PRN (09:59)
[2016-09-25] MEDS: TAMSULOSIN HCL 0.4 MG CAP.SR.24H PO SCH (17:10)
[2016-09-25] MEDS: traMADol HCL 50 MG TABLET PO PRN (17:10)
--- NOTE | 2016-09-25 17:34 | PN ---
Subjective - Date and Time Seen Date: 09/25/16 Time: 12:20 Subjective Narrative: Improving. Coughing less. Less chest pain. Less SOB. Hungry. Last night was difficult, however. Had a choking spell, and spent much of the night sitting up on the side of his bed. Objective - Review of Systems Generalized/Overall Review: Reports: Fatigue EENTM: Reports: No Symptoms Reported Respiratory: Reports: Cough, Shortness of Breath, Orthopnea, Wheezing Cardiac: Reports: No Symptoms Reported Abdominal: Reports: No Symptoms Reported Genitourinary Symptoms: Reports: No Symptoms Reported Musculoskeletal Complaints: Reports: No Symptoms Reported Neurological: Reports: No Symptoms Reported Skin: Reports: No Symptoms Reported Endocrine: Reports: No Symptoms Reported Misc: All systems neg except as marked - Vitals Vitals: Last Vital Signs Selected Entries 09/25/16 12:10 Temperature 36.3 C L Temperature Oral Source Pulse Rate 84 Pulse Rhythm Regular Pulse Strength Normal Respiratory 20 Rate Respiratory Normal Depth Respiratory Normal Effort Respiratory Normal Pattern Blood Pressure 135/75 Blood Pressure Sitting Position O2 Sat by Pulse 95 Oximetry Oxygen Delivery Nasal Cannula Method Oxygen Flow 3 Rate - Abnormal Lab Findings Abnormal Lab Findings: Abnormal Lab Results 09/25/16 09/25/16 Range/Units 06:02 06:02 WBC 13.7 H (4.0-10.5) K/mm3 RBC 3.56 L (4.7-6.0) M/mm3 Hgb 11.0 L (13.5-18.0) gm/dL Hct 33.6 L (42.0-52.0) % MPV 10.5 H (6.0-9.5) fl Immature Gran % (Auto) 0.90 H (0.001-0.429) % Immature Gran # (Auto) 0.12 H (0.000-0.0310) K/mm3 Neutrophils % 91.1 H (42-75.0) % Lymphocytes % 4.5 L (20-51) % Neutrophils # 12.4 H (1.3-6.0) K/mm3 Lymphocytes # 0.6 L (1.5-3.5) k/mm3 Random Glucose 174 H (70-110) mg/dL - Exam Constitutional: Present: Alert, Oriented x3, Cooperative, Well developed, Well nourished, Mild distress ENT Exam: Present: normal ENT inspection, hearing grossly normal Neck: Present: normal inspection Respiratory: Present: decreased breath sounds, wheezing, expiration (prolonged) Cardiovascular/Chest: Present: regular rate, rhythm, no murmur Abdomen: Present: Normal bowel sounds, soft, nontender, nondistended, no rebound tenderness, no hepatospenomegaly, no masses Extremity: Present: normal inspection, no pedal edema Skin Exam: Present: normal color, warm/dry, no cyanosis Neurologic: Present: alert, oriented x 3 Appearance: Present: appropriate appearance, appropriate insight, neat, no memory impairment Eye contact: Present: cooperative, good eye contact, normal speech Thoughts: Present: normal thought pattern Assessment/Plan Plan Narrative: Continue IV antibiotics and breathing treatments. Follow labs. - Problems/Diagnosis (1) COPD (chronic obstructive pulmonary disease) Problem: Acute (2) Aspiration pneumonia due to gastric secretions Problem: Acute Qualifiers: Laterality: right Lung location: unspecified part of lung Qualified Code( s): J69.0 - Pneumonitis due to inhalation of food and vomit (3) CAD (coronary artery disease) Problem: Chronic Qualifiers: Coronary Disease-Associated Artery/Lesion type: [place] artery [place] vs. transplanted heart: [place] heart Associated angina: without angina Qualified Code(s): I25.10 - Atherosclerotic heart disease of [place] coronary artery without angina pectoris (4) Esophageal cancer Problem: Inactive Qualifiers: Malignant neoplasm of esophagus location: unspecified location Qualified Code(s): C15.9 - Malignant neoplasm of esophagus, unspecified (5) Hypertension Problem: Chronic Qualifiers: Hypertension type: essential hypertension Qualified Code(s): I10 - Essential (primary) hypertension (6) Hyperlipidemia Problem: Chronic Qualifiers: Hyperlipidemia type: unspecified Qualified Code(s): E78.5 - Hyperlipidemia , unspecified (7) Supplemental oxygen dependent Problem: Chronic
[2016-09-25] MEDS: traZODone HCL 50 MG TABLET PO SCH (23:05)
[2016-09-25] MEDS: ENOXAPARIN SODIUM 40 MG/0.4 ML SYRG SC SCH (23:05)
[2016-09-25] MEDS: ALPRAZolam 0.25 MG TABLET PO SCH (23:05)
[2016-09-26] MEDS: MEROPENEM 1 GM in NORMAL SALINE 100 ML IV SCH ×3 (02:46→17:11)
[2016-09-26] MEDS: METHYLPREDNISOLONE SOD SUCC 60 MG in WATER FOR INJ.,BACTERIOSTATIC 0 ML IV SCH ×3 (02:46→20:50)
[2016-09-26 06:05] LABS: Hematocrit 32.4 % (42.0-52.0); Hemoglobin 10.6 gm/dL (13.5-18.0); Mean Cell Volume 94.7 fl (78-100); Mean Corpuscular Hgb Conc 32.7 g/dl (32-36); Mean Platelet Volume 10.3 fl (6.0-9.5); Neutrophil # 9.1 K/mm3 (1.3-6.0); Neutrophil % 88.4 % (42-75.0); Platelet Count 174 K/mm3 (150-450); Red Blood Count 3.42 M/mm3 (4.7-6.0); Red Cell Distribution Width 12.6 % (11.5-14.0); White Blood Count 10.3 K/mm3 (4.0-10.5)
[2016-09-26] MEDS: IPRATROPIUM BROMIDE 0.5 MG/2.5 ML VIAL.NEB IH SCH ×5 (06:18→18:58)
[2016-09-26] MEDS: FORMOTEROL FUMARATE 20 MCG/2 ML VIAL IH SCH ×3 (06:18→18:59)
[2016-09-26] MEDS: BUDESONIDE 0.5 MG/2 ML VIAL.NEB IH SCH ×3 (06:19→18:58)
[2016-09-26 06:25] LABS: Anion Gap 8.9 mmol/L (6.8-13.8); Calcium * 8.3 mg/dL (7.9-10.9); Carbon Dioxide 29.5 mmol/L (24-32.6); Estimated Creat Clear 96.1; Potassium 4.4 mmol/L (3.4-4.6)
[2016-09-26] MEDS: CYANOCOBALAMIN 1,000 MCG TABLET PO SCH (08:27)
[2016-09-26] MEDS: ESCITALOPRAM OXALATE 10 MG TAB PO SCH (08:27)
[2016-09-26] MEDS: PANTOPRAZOLE SODIUM 40 MG TABLET.EC PO SCH ×2 (08:27→20:54)
[2016-09-26] MEDS: clonazePAM 0.5 MG TABLET PO SCH ×2 (08:27→21:07)
[2016-09-26] MEDS: AZITHROMYCIN 250 MG TABLET PO SCH (08:27)
[2016-09-26] MEDS: METOPROLOL SUCCINATE 50 MG TABLET.SA PO SCH (08:27)
--- NOTE | 2016-09-26 12:56 | PN ---
Subjective - Date and Time Seen Date: 09/26/16 Time: 07:00 Subjective Narrative: Improving. Coughing less. Less chest pain. Less SOB. Hungry. Last night better. Today is better yet. Objective - Review of Systems Generalized/Overall Review: Reports: Malaise EENTM: Reports: No Symptoms Reported Respiratory: Reports: Cough, Shortness of Breath, Orthopnea, Wheezing Cardiac: Reports: No Symptoms Reported Abdominal: Reports: No Symptoms Reported Genitourinary Symptoms: Reports: No Symptoms Reported Musculoskeletal Complaints: Reports: No Symptoms Reported Neurological: Reports: No Symptoms Reported Skin: Reports: No Symptoms Reported Endocrine: Reports: No Symptoms Reported Misc: All systems neg except as marked - Vitals Vitals: Last Vital Signs Selected Entries 09/26/16 09/26/16 02:57 06:28 Temperature 36.9 C Temperature Temporal Artery Source Scan Pulse Rate 88 87 Respiratory 16 20 Rate Blood Pressure 113/64 Blood Pressure Supine Position O2 Sat by Pulse 94 Oximetry Oxygen Delivery Nasal Cannula Nasal Cannula Method Oxygen Flow 3 3 Rate - Abnormal Lab Findings Abnormal Lab Findings: Abnormal Lab Results 09/26/16 09/26/16 Range/Units 05:54 05:54 RBC 3.42 L (4.7-6.0) M/mm3 Hgb 10.6 L (13.5-18.0) gm/dL Hct 32.4 L (42.0-52.0) % MPV 10.3 H (6.0-9.5) fl Immature Gran % (Auto) 1.30 H (0.001-0.429) % Immature Gran # (Auto) 0.13 H (0.000-0.0310) K/mm3 Neutrophils % 88.4 H (42-75.0) % Lymphocytes % 7.2 L (20-51) % Neutrophils # 9.1 H (1.3-6.0) K/mm3 Lymphocytes # 0.7 L (1.5-3.5) k/mm3 Sodium 143 H (132-142) mmol/L Plasma Sodium 144 H (130-142) mmol/L Chloride 109 H (97-106) mmol/L BUN/Creatinine Ratio 22.0 H (9.0-21.6) Random Glucose 144 H (70-110) mg/dL - Exam Constitutional: Present: Alert, Oriented x3, Cooperative, Well developed, Well nourished, Mild distress ENT Exam: Present: normal ENT inspection, hearing grossly normal Neck: Present: supple, normal inspection Respiratory: Present: rhonchi, wheezing Cardiovascular/Chest: Present: regular rate, rhythm, no edema Abdomen: Present: Normal bowel sounds, soft, nontender, nondistended, no rebound tenderness, no hepatospenomegaly, no masses Extremity: Present: normal inspection, no pedal edema Skin Exam: Present: normal color, warm/dry, no cyanosis Neurologic: Present: alert, oriented x 3 Appearance: Present: appropriate appearance, appropriate insight, neat Eye contact: Present: cooperative, good eye contact, normal speech Thoughts: Present: normal thought pattern Assessment/Plan Plan Narrative: IV antibiotics, breathing treatments, follow labs, increase activity. - Problems/Diagnosis (1) COPD (chronic obstructive pulmonary disease) Problem: Acute (2) Aspiration pneumonia due to gastric secretions Problem: Acute Qualifiers: Laterality: right Lung location: unspecified part of lung Qualified Code( s): J69.0 - Pneumonitis due to inhalation of food and vomit (3) CAD (coronary artery disease) Problem: Chronic Qualifiers: Coronary Disease-Associated Artery/Lesion type: [place] artery [place] vs. transplanted heart: [place] heart Associated angina: without angina Qualified Code(s): I25.10 - Atherosclerotic heart disease of [place] coronary artery without angina pectoris (4) Esophageal cancer Problem: Inactive Qualifiers: Malignant neoplasm of esophagus location: unspecified location Qualified Code(s): C15.9 - Malignant neoplasm of esophagus, unspecified (5) Hypertension Problem: Chronic Qualifiers: Hypertension type: essential hypertension Qualified Code(s): I10 - Essential (primary) hypertension (6) Hyperlipidemia Problem: Chronic Qualifiers: Hyperlipidemia type: unspecified Qualified Code(s): E78.5 - Hyperlipidemia , unspecified (7) Supplemental oxygen dependent Problem: Chronic
[2016-09-26] MEDS: NORMAL SALINE 1,000 ML IV PRN (13:01)
[2016-09-26] MEDS: TAMSULOSIN HCL 0.4 MG CAP.SR.24H PO SCH (17:11)
[2016-09-26] MEDS: ALBUTEROL SULFATE 2.5 MG/0.5 ML VIAL.NEB IH PRN (17:58)
[2016-09-26] MEDS: traZODone HCL 50 MG TABLET PO SCH (20:53)
[2016-09-26] MEDS: ENOXAPARIN SODIUM 40 MG/0.4 ML SYRG SC SCH (20:54)
[2016-09-26] MEDS: ALPRAZolam 0.25 MG TABLET PO SCH (21:07)
[2016-09-27] MEDS: NORMAL SALINE 1,000 ML IV PRN ×2 (02:25→12:16)
[2016-09-27] MEDS: MEROPENEM 1 GM in NORMAL SALINE 100 ML IV SCH ×3 (02:25→17:48)
[2016-09-27] MEDS: METHYLPREDNISOLONE SOD SUCC 60 MG in WATER FOR INJ.,BACTERIOSTATIC 0 ML IV SCH ×3 (02:28→18:35)
[2016-09-27] MEDS: BUDESONIDE 0.5 MG/2 ML VIAL.NEB IH SCH ×2 (05:59→18:23)
[2016-09-27] MEDS: FORMOTEROL FUMARATE 20 MCG/2 ML VIAL IH SCH ×2 (06:00→18:24)
[2016-09-27] MEDS: IPRATROPIUM BROMIDE 0.5 MG/2.5 ML VIAL.NEB IH SCH ×4 (06:00→18:20)
[2016-09-27 06:32] LABS: Hematocrit 33.6 % (42.0-52.0); Hemoglobin 11.1 gm/dL (13.5-18.0); Mean Cell Volume 93.6 fl (78-100); Mean Corpuscular Hemoglobin 30.9 pg (27-31); Mean Platelet Volume 10.1 fl (6.0-9.5); Neutrophil % 86.9 % (42-75.0); Platelet Count 187 K/mm3 (150-450); Red Blood Count 3.59 M/mm3 (4.7-6.0); Red Cell Distribution Width 12.4 % (11.5-14.0); White Blood Count 8.1 K/mm3 (4.0-10.5)
[2016-09-27 06:47] LABS: BUN/Creatinine Ratio 24.7 (9.0-21.6); Carbon Dioxide 29.2 mmol/L (24-32.6); Estimated Creat Clear 92.7; Potassium 4.2 mmol/L (3.4-4.6)
[2016-09-27] MEDS: METOPROLOL SUCCINATE 50 MG TABLET.SA PO SCH (08:34)
[2016-09-27] MEDS: ESCITALOPRAM OXALATE 10 MG TAB PO SCH (08:34)
[2016-09-27] MEDS: traMADol HCL 50 MG TABLET PO PRN ×2 (08:34→21:25)
[2016-09-27] MEDS: CYANOCOBALAMIN 1,000 MCG TABLET PO SCH (08:34)
[2016-09-27] MEDS: PANTOPRAZOLE SODIUM 40 MG TABLET.EC PO SCH ×2 (08:34→21:18)
[2016-09-27] MEDS: clonazePAM 0.5 MG TABLET PO SCH ×2 (08:34→21:26)
[2016-09-27] MEDS: AZITHROMYCIN 250 MG TABLET PO SCH (08:35)
[2016-09-27] MEDS: ALBUTEROL SULFATE 2.5 MG/0.5 ML VIAL.NEB IH PRN ×2 (10:49→14:36)
--- NOTE | 2016-09-27 15:12 | PN ---
Subjective - Date and Time Seen Date: 09/27/16 Time: 15:10 Subjective Narrative: Improving. Coughing less. No chest pain. Less SOB. Hungry. Last night better. Today is better yet. Walking more. Objective - Review of Systems Generalized/Overall Review: Reports: Malaise EENTM: Reports: No Symptoms Reported Respiratory: Reports: Cough, Shortness of Breath Cardiac: Reports: No Symptoms Reported Abdominal: Reports: No Symptoms Reported Genitourinary Symptoms: Reports: No Symptoms Reported Musculoskeletal Complaints: Reports: No Symptoms Reported Neurological: Reports: No Symptoms Reported Skin: Reports: No Symptoms Reported Endocrine: Reports: No Symptoms Reported Misc: All systems neg except as marked - Vitals Vitals: Last Vital Signs Selected Entries 09/27/16 09/27/16 10:43 14:34 Temperature 36.8 C Temperature Tympanic Source Pulse Rate 91 73 Respiratory 20 20 Rate Blood Pressure 140/78 Blood Pressure Sitting Position O2 Sat by Pulse 94 96 Oximetry Oxygen Delivery Room Air Room Air Method - Abnormal Lab Findings Abnormal Lab Findings: Abnormal Lab Results 09/27/16 09/27/16 Range/Units 06:00 06:00 RBC 3.59 L (4.7-6.0) M/mm3 Hgb 11.1 L (13.5-18.0) gm/dL Hct 33.6 L (42.0-52.0) % MPV 10.1 H (6.0-9.5) fl Immature Gran % (Auto) 0.90 H (0.001-0.429) % Immature Gran # (Auto) 0.07 H (0.000-0.0310) K/mm3 Neutrophils % 86.9 H (42-75.0) % Lymphocytes % 8.3 L (20-51) % Neutrophils # 7.0 H (1.3-6.0) K/mm3 Lymphocytes # 0.7 L (1.5-3.5) k/mm3 BUN/Creatinine Ratio 24.7 H (9.0-21.6) Random Glucose 135 H (70-110) mg/dL - Exam Constitutional: Present: Alert, Oriented x3, Cooperative, Well developed, Well nourished, No distress ENT Exam: Present: normal ENT inspection, hearing grossly normal Neck: Present: normal inspection Respiratory: Present: rhonchi, wheezing Cardiovascular/Chest: Present: regular rate, rhythm, no murmur Abdomen: Present: Normal bowel sounds, soft, nontender, nondistended, no rebound tenderness, no hepatospenomegaly, no masses Extremity: Present: non-tender, no pedal edema Skin Exam: Present: normal color, warm/dry, no cyanosis Neurologic: Present: alert, oriented x 3 Appearance: Present: appropriate appearance, appropriate insight, neat, no memory impairment Eye contact: Present: cooperative, good eye contact, normal speech Thoughts: Present: normal thought pattern Assessment/Plan Plan Narrative: Continue IV antibiotics. Labs prn. Home in 2-3 days. - Problems/Diagnosis (1) COPD (chronic obstructive pulmonary disease) Problem: Acute (2) Aspiration pneumonia due to gastric secretions Problem: Acute Qualifiers: Laterality: right Lung location: unspecified part of lung Qualified Code( s): J69.0 - Pneumonitis due to inhalation of food and vomit (3) CAD (coronary artery disease) Problem: Chronic Qualifiers: Coronary Disease-Associated Artery/Lesion type: [place] artery [place] vs. transplanted heart: [place] heart Associated angina: without angina Qualified Code(s): I25.10 - Atherosclerotic heart disease of [place] coronary artery without angina pectoris (4) Esophageal cancer Problem: Inactive Qualifiers: Malignant neoplasm of esophagus location: unspecified location Qualified Code(s): C15.9 - Malignant neoplasm of esophagus, unspecified (5) Hypertension Problem: Chronic Qualifiers: Hypertension type: essential hypertension Qualified Code(s): I10 - Essential (primary) hypertension (6) Hyperlipidemia Problem: Chronic Qualifiers: Hyperlipidemia type: unspecified Qualified Code(s): E78.5 - Hyperlipidemia , unspecified (7) Supplemental oxygen dependent Problem: Chronic
[2016-09-27] MEDS: TAMSULOSIN HCL 0.4 MG CAP.SR.24H PO SCH (18:35)
[2016-09-27] MEDS: traZODone HCL 50 MG TABLET PO SCH (21:16)
[2016-09-27] MEDS: ENOXAPARIN SODIUM 40 MG/0.4 ML SYRG SC SCH (21:17)
[2016-09-27] MEDS: ALPRAZolam 0.25 MG TABLET PO SCH (21:26)
[2016-09-28] MEDS: NORMAL SALINE 1,000 ML IV PRN ×2 (01:46→16:38)
[2016-09-28] MEDS: MEROPENEM 1 GM in NORMAL SALINE 100 ML IV SCH ×3 (02:07→18:05)
[2016-09-28] MEDS: METHYLPREDNISOLONE SOD SUCC 60 MG in WATER FOR INJ.,BACTERIOSTATIC 0 ML IV SCH ×3 (04:20→19:18)
[2016-09-28] MEDS: FORMOTEROL FUMARATE 20 MCG/2 ML VIAL IH SCH ×2 (06:22→18:22)
[2016-09-28] MEDS: BUDESONIDE 0.5 MG/2 ML VIAL.NEB IH SCH ×2 (06:22→18:21)
[2016-09-28] MEDS: IPRATROPIUM BROMIDE 0.5 MG/2.5 ML VIAL.NEB IH SCH ×4 (06:23→18:19)
[2016-09-28] MEDS: CYANOCOBALAMIN 1,000 MCG TABLET PO SCH (09:15)
[2016-09-28] MEDS: METOPROLOL SUCCINATE 50 MG TABLET.SA PO SCH (09:15)
[2016-09-28] MEDS: PANTOPRAZOLE SODIUM 40 MG TABLET.EC PO SCH ×2 (09:15→20:55)
[2016-09-28] MEDS: ESCITALOPRAM OXALATE 10 MG TAB PO SCH (09:15)
[2016-09-28] MEDS: clonazePAM 0.5 MG TABLET PO SCH ×2 (09:17→20:59)
--- NOTE | 2016-09-28 11:40 | PN ---
Subjective - Date and Time Seen Date: 09/28/16 Time: 11:37 Subjective Narrative: Improving. Coughing less. No chest pain. Less SOB. Hungry. Last night better. Today is better yet. Walking more, but yesterday walked from his room to the hospital courtyard. On the way back to his room, he became very SOB and weak. He would have collapsed to the floor, except that others caught him. Objective - Review of Systems Generalized/Overall Review: Reports: Weakness, Malaise EENTM: Reports: No Symptoms Reported Respiratory: Reports: Cough, Shortness of Breath, Wheezing Cardiac: Reports: No Symptoms Reported Abdominal: Reports: No Symptoms Reported Genitourinary Symptoms: Reports: No Symptoms Reported Musculoskeletal Complaints: Reports: No Symptoms Reported Neurological: Reports: No Symptoms Reported Skin: Reports: No Symptoms Reported Endocrine: Reports: No Symptoms Reported Misc: All systems neg except as marked - Vitals Vitals: Last Vital Signs Selected Entries 09/28/16 06:42 Temperature 36.3 C L Temperature Oral Source Pulse Rate 82 Respiratory 20 Rate Blood Pressure 143/87 Blood Pressure Sitting Position O2 Sat by Pulse 93 Oximetry Oxygen Delivery T-piece Method - Exam Constitutional: Present: Alert, Oriented x3, Cooperative, Well developed, Well nourished, Mild distress ENT Exam: Present: normal ENT inspection, hearing grossly normal Neck: Present: normal inspection Respiratory: Present: decreased breath sounds, wheezing - scattered, mild Cardiovascular/Chest: Present: regular rate, rhythm, no murmur Abdomen: Present: Normal bowel sounds, soft, nontender, nondistended, no rebound tenderness, no hepatospenomegaly, no masses Extremity: Present: normal inspection, no pedal edema Neurologic: Present: alert, oriented x 3 Appearance: Present: appropriate appearance, neat, no memory impairment Eye contact: Present: cooperative, good eye contact, normal speech Thoughts: Present: normal thought pattern Assessment/Plan Plan Narrative: Improving, but remains weak and SOB. Hope in the next few days. continue present treatment. Labs prn. - Problems/Diagnosis (1) COPD (chronic obstructive pulmonary disease) Problem: Acute (2) Aspiration pneumonia due to gastric secretions Problem: Acute Qualifiers: Laterality: right Lung location: unspecified part of lung Qualified Code( s): J69.0 - Pneumonitis due to inhalation of food and vomit (3) CAD (coronary artery disease) Problem: Chronic Qualifiers: Coronary Disease-Associated Artery/Lesion type: [place] artery [place] vs. transplanted heart: [place] heart Associated angina: without angina Qualified Code(s): I25.10 - Atherosclerotic heart disease of [place] coronary artery without angina pectoris (4) Esophageal cancer Problem: Inactive Qualifiers: Malignant neoplasm of esophagus location: unspecified location Qualified Code(s): C15.9 - Malignant neoplasm of esophagus, unspecified (5) Hypertension Problem: Chronic Qualifiers: Hypertension type: essential hypertension Qualified Code(s): I10 - Essential (primary) hypertension (6) Hyperlipidemia Problem: Chronic Qualifiers: Hyperlipidemia type: unspecified Qualified Code(s): E78.5 - Hyperlipidemia , unspecified (7) Supplemental oxygen dependent Problem: Chronic
[2016-09-28] MEDS: ALBUTEROL SULFATE 2.5 MG/0.5 ML VIAL.NEB IH PRN ×4 (14:56→23:51)
[2016-09-28] MEDS: TAMSULOSIN HCL 0.4 MG CAP.SR.24H PO SCH (19:18)
[2016-09-28] MEDS: traZODone HCL 50 MG TABLET PO SCH (20:53)
[2016-09-28] MEDS: ENOXAPARIN SODIUM 40 MG/0.4 ML SYRG SC SCH (20:54)
[2016-09-28] MEDS: ALPRAZolam 0.25 MG TABLET PO SCH (20:59)
[2016-09-28] MEDS: traMADol HCL 50 MG TABLET PO PRN (20:59)
[2016-09-29] MEDS: MEROPENEM 1 GM in NORMAL SALINE 100 ML IV SCH ×3 (02:17→17:23)
[2016-09-29] MEDS: METHYLPREDNISOLONE SOD SUCC 60 MG in WATER FOR INJ.,BACTERIOSTATIC 0 ML IV SCH ×3 (02:19→19:12)
[2016-09-29] MEDS: BUDESONIDE 0.5 MG/2 ML VIAL.NEB IH SCH ×2 (07:20→18:14)
[2016-09-29] MEDS: IPRATROPIUM BROMIDE 0.5 MG/2.5 ML VIAL.NEB IH SCH ×4 (07:20→18:14)
[2016-09-29] MEDS: ALBUTEROL SULFATE 2.5 MG/0.5 ML VIAL.NEB IH PRN ×3 (07:20→18:14)
[2016-09-29] MEDS: FORMOTEROL FUMARATE 20 MCG/2 ML VIAL IH SCH ×2 (07:20→18:14)
--- NOTE | 2016-09-29 07:45 | PN ---
Subjective - Date and Time Seen Date: 09/29/16 Time: 07:42 Subjective Narrative: Chest feels heavy, weak, Coughing and wheezing. Doing his breathing treatment. Almost passed out when he reached the [facility] yesterday. Objective - Review of Systems Generalized/Overall Review: Reports: Weakness. Denies: Chills, Fever EENTM: Reports: No Symptoms Reported Respiratory: Reports: Cough, Shortness of Breath, Wheezing Cardiac: Reports: Other - chest tightness. Denies: Chest Pain, Edema, Palpitations Abdominal: Denies: Nausea, Vomiting Genitourinary Symptoms: Denies: Urgency, Frequency Musculoskeletal Complaints: Reports: Joint Pain - Vitals Vitals: Last Vital Signs Temp 36.6 C 09/29/16 02:00 Pulse 94 09/29/16 07:20 Resp 24 H 09/29/16 07:20 BP 137/76 09/29/16 02:00 Pulse Ox 93 09/29/16 07:20 - Exam Constitutional: Present: Alert, Oriented x3, Cooperative ENT Exam: Present: hearing grossly normal Neck: Present: supple Breasts: Present: Exam deferred Respiratory: Present: decreased breath sounds, wheezing, No rales Cardiovascular/Chest: Present: regular rate, rhythm, no JVD, no murmur Abdomen: Present: Normal bowel sounds, soft, nontender, nondistended Extremity: Present: no pedal edema, no calf tenderness Assessment/Plan - Problems/Diagnosis (1) Aspiration pneumonia due to gastric secretions Problem: Acute Qualifiers: Laterality: right Lung location: unspecified part of lung Qualified Code( s): J69.0 - Pneumonitis due to inhalation of food and vomit (2) COPD (chronic obstructive pulmonary disease) Problem: Acute (3) CAD (coronary artery disease) Problem: Chronic Qualifiers: Coronary Disease-Associated Artery/Lesion type: [place] artery [place] vs. transplanted heart: [place] heart Associated angina: without angina Qualified Code(s): I25.10 - Atherosclerotic heart disease of [place] coronary artery without angina pectoris (4) Hyperlipidemia Problem: Chronic Qualifiers: Hyperlipidemia type: unspecified Qualified Code(s): E78.5 - Hyperlipidemia , unspecified (5) Hypertension Problem: Chronic Qualifiers: Hypertension type: essential hypertension Qualified Code(s): I10 - Essential (primary) hypertension (6) Esophageal cancer Problem: Inactive Qualifiers: Malignant neoplasm of esophagus location: unspecified location Qualified Code(s): C15.9 - Malignant neoplasm of esophagus, unspecified Narrative: history of. (7) Generalized weakness Problem: Acute Narrative: will refer to PT.
[2016-09-29] MEDS: NORMAL SALINE 1,000 ML IV PRN (08:07)
[2016-09-29] MEDS: clonazePAM 0.5 MG TABLET PO SCH ×2 (08:07→20:43)
[2016-09-29] MEDS: PANTOPRAZOLE SODIUM 40 MG TABLET.EC PO SCH ×2 (08:08→20:44)
[2016-09-29] MEDS: CYANOCOBALAMIN 1,000 MCG TABLET PO SCH (08:08)
[2016-09-29] MEDS: ESCITALOPRAM OXALATE 10 MG TAB PO SCH (08:08)
[2016-09-29] MEDS: METOPROLOL SUCCINATE 50 MG TABLET.SA PO SCH (08:08)
[2016-09-29] MEDS: TAMSULOSIN HCL 0.4 MG CAP.SR.24H PO SCH (17:23)
[2016-09-29] MEDS: traMADol HCL 50 MG TABLET PO PRN (20:21)
[2016-09-29] MEDS: traZODone HCL 50 MG TABLET PO SCH (20:40)
[2016-09-29] MEDS: ENOXAPARIN SODIUM 40 MG/0.4 ML SYRG SC SCH (20:43)
[2016-09-29] MEDS: ALPRAZolam 0.25 MG TABLET PO SCH (20:47)
[2016-09-30] MEDS: MEROPENEM 1 GM in NORMAL SALINE 100 ML IV SCH ×3 (01:15→17:12)
[2016-09-30] MEDS: NORMAL SALINE 1,000 ML IV PRN ×2 (01:20→23:14)
[2016-09-30] MEDS: METHYLPREDNISOLONE SOD SUCC 60 MG in WATER FOR INJ.,BACTERIOSTATIC 0 ML IV SCH ×3 (02:27→20:09)
[2016-09-30 05:15] LABS: Hematocrit 33.8 % (42.0-52.0); Hemoglobin 11.3 gm/dL (13.5-18.0); Mean Cell Volume 92.3 fl (78-100); Mean Corpuscular Hemoglobin 30.9 pg (27-31); Mean Corpuscular Hgb Conc 33.4 g/dl (32-36); Mean Platelet Volume 9.6 fl (6.0-9.5); Neutrophil # 9.1 K/mm3 (1.3-6.0); Neutrophil % 86.3 % (42-75.0); Platelet Count 189 K/mm3 (150-450); Red Blood Count 3.66 M/mm3 (4.7-6.0); Red Cell Distribution Width 12.1 % (11.5-14.0); White Blood Count 10.5 K/mm3 (4.0-10.5)
[2016-09-30] MEDS ORDERED: ONDANSETRON HCL/PF 2 MG/ML VIAL ONE (05:23)
[2016-09-30 05:28] LABS: BUN/Creatinine Ratio 28.8 (9.0-21.6); Carbon Dioxide 33.5 mmol/L (24-32.6); Estimated Creat Clear 98.5; Potassium 4.5 mmol/L (3.4-4.6)
[2016-09-30] MEDS ORDERED: ONDANSETRON HCL/PF 2 MG/ML VIAL IV PRN (05:45)
[2016-09-30] MEDS: IPRATROPIUM BROMIDE 0.5 MG/2.5 ML VIAL.NEB IH SCH ×4 (07:04→18:25)
[2016-09-30] MEDS: BUDESONIDE 0.5 MG/2 ML VIAL.NEB IH SCH ×2 (07:07→18:26)
[2016-09-30] MEDS: FORMOTEROL FUMARATE 20 MCG/2 ML VIAL IH SCH ×2 (07:07→18:27)
[2016-09-30] MEDS: METOPROLOL SUCCINATE 50 MG TABLET.SA PO SCH (08:28)
[2016-09-30] MEDS: clonazePAM 0.5 MG TABLET PO SCH ×2 (08:28→20:15)
[2016-09-30] MEDS: ESCITALOPRAM OXALATE 10 MG TAB PO SCH (08:29)
[2016-09-30] MEDS: CYANOCOBALAMIN 1,000 MCG TABLET PO SCH (08:30)
--- NOTE | 2016-09-30 08:43 | PN ---
Subjective - Date and Time Seen Date: 09/30/16 Time: 08:38 Subjective Narrative: ambulating with a walker. PT will work with him again today. He still SOB and feels chest tightness. Objective - Review of Systems Generalized/Overall Review: Reports: Weakness. Denies: Chills, Fever EENTM: Reports: No Symptoms Reported Respiratory: Reports: Shortness of Breath, Wheezing Cardiac: Denies: Chest Pain, Edema Abdominal: Denies: Nausea, Vomiting Genitourinary Symptoms: Denies: Urgency, Frequency Musculoskeletal Complaints: Reports: Joint Pain - Vitals Vitals: Last Vital Signs Temp 36.6 C 09/30/16 06:49 Pulse 88 09/30/16 08:28 Resp 16 09/30/16 07:14 BP 153/79 09/30/16 08:28 Pulse Ox 94 09/30/16 07:38 - Abnormal Lab Findings Abnormal Lab Findings: Abnormal Lab Results 09/30/16 09/30/16 Range/Units 05:12 05:12 RBC 3.66 L (4.7-6.0) M/mm3 Hgb 11.3 L (13.5-18.0) gm/dL Hct 33.8 L (42.0-52.0) % MPV 9.6 H (6.0-9.5) fl Immature Gran % (Auto) 3.20 H (0.001-0.429) % Immature Gran # (Auto) 0.34 H (0.000-0.0310) K/mm3 Neutrophils % 86.3 H (42-75.0) % Lymphocytes % 6.0 L (20-51) % Neutrophils # 9.1 H (1.3-6.0) K/mm3 Lymphocytes # 0.6 L (1.5-3.5) k/mm3 Carbon Dioxide 33.5 H (24-32.6) mmol/L Anion Gap 6.0 L (6.8-13.8) mmol/L BUN/Creatinine Ratio 28.8 H (9.0-21.6) Random Glucose 149 H (70-110) mg/dL - Exam Constitutional: Present: Alert, Oriented x3, Cooperative ENT Exam: Present: hearing grossly normal Neck: Present: supple Breasts: Present: Exam deferred Respiratory: Present: decreased breath sounds, wheezing, No rales Cardiovascular/Chest: Present: regular rate, rhythm, no JVD, no murmur Abdomen: Present: Normal bowel sounds, soft, nontender, nondistended Extremity: Present: no pedal edema, no calf tenderness Assessment/Plan - Problems/Diagnosis (1) Aspiration pneumonia due to gastric secretions Problem: Acute Qualifiers: Laterality: right Lung location: unspecified part of lung Qualified Code( s): J69.0 - Pneumonitis due to inhalation of food and vomit (2) COPD (chronic obstructive pulmonary disease) Problem: Acute Qualifiers: COPD type: unspecified COPD Qualified Code(s): J44.9 - Chronic obstructive pulmonary disease, unspecified Narrative: still with SOB and occasional wheezing. continue with present management. (3) CAD (coronary artery disease) Problem: Chronic Qualifiers: Coronary Disease-Associated Artery/Lesion type: [place] artery [place] vs. transplanted heart: [place] heart Associated angina: without angina Qualified Code(s): I25.10 - Atherosclerotic heart disease of [place] coronary artery without angina pectoris (4) Hyperlipidemia Problem: Chronic Qualifiers: Hyperlipidemia type: unspecified Qualified Code(s): E78.5 - Hyperlipidemia , unspecified (5) Hypertension Problem: Chronic Qualifiers: Hypertension type: essential hypertension Qualified Code(s): I10 - Essential (primary) hypertension (6) Esophageal cancer Problem: Inactive Qualifiers: Malignant neoplasm of esophagus location: unspecified location Qualified Code(s): C15.9 - Malignant neoplasm of esophagus, unspecified (7) Generalized weakness Problem: Acute Narrative: PT is now working with him.
[2016-09-30] MEDS: PANTOPRAZOLE SODIUM 40 MG TABLET.EC PO SCH ×2 (09:34→20:11)
[2016-09-30] MEDS: TAMSULOSIN HCL 0.4 MG CAP.SR.24H PO SCH (17:12)
[2016-09-30] MEDS: traZODone HCL 50 MG TABLET PO SCH (20:10)
[2016-09-30] MEDS: ENOXAPARIN SODIUM 40 MG/0.4 ML SYRG SC SCH (20:10)
[2016-10-01] MEDS: MEROPENEM 1 GM in NORMAL SALINE 100 ML IV SCH ×3 (03:10→17:44)
[2016-10-01] MEDS: METHYLPREDNISOLONE SOD SUCC 60 MG in WATER FOR INJ.,BACTERIOSTATIC 0 ML IV SCH ×3 (03:16→18:59)
[2016-10-01] MEDS: FORMOTEROL FUMARATE 20 MCG/2 ML VIAL IH SCH ×2 (06:04→18:14)
[2016-10-01] MEDS: IPRATROPIUM BROMIDE 0.5 MG/2.5 ML VIAL.NEB IH SCH ×4 (06:04→18:10)
[2016-10-01] MEDS: BUDESONIDE 0.5 MG/2 ML VIAL.NEB IH SCH ×2 (06:05→18:13)
--- NOTE | 2016-10-01 08:43 | PN ---
Subjective - Date and Time Seen Date: 10/01/16 Time: 08:40 Subjective Narrative: Patient very SOB this morning. Visibly SOB and audibly wheezing as he could not even finish with showering with assistance. Objective - Review of Systems Generalized/Overall Review: Reports: Weakness. Denies: Chills, Fever EENTM: Denies: Eye Pain, Blurred Vision Respiratory: Reports: Shortness of Breath, Wheezing Cardiac: Reports: Other - chest tightness. Denies: Chest Pain, Edema, Palpitations Genitourinary Symptoms: Reports: Urgency, Frequency Musculoskeletal Complaints: Reports: Joint Pain - Vitals Vitals: Last Vital Signs Temp 37.2 C 10/01/16 06:36 Pulse 78 10/01/16 06:36 Resp 20 10/01/16 06:36 BP 140/66 10/01/16 06:36 Pulse Ox 94 10/01/16 06:36 - Exam Constitutional: Present: Alert, Oriented x3, Cooperative, Moderate distress, Elderly ENT Exam: Present: hearing grossly normal Neck: Present: supple Breasts: Present: Exam deferred Respiratory: Present: decreased breath sounds, wheezing, expiration (prolonged) , No rales Cardiovascular/Chest: Present: regular rate, rhythm, no JVD, no murmur Abdomen: Present: Normal bowel sounds, soft, nontender, nondistended Extremity: Present: no calf tenderness, pedal edema Assessment/Plan - Problems/Diagnosis (1) Aspiration pneumonia due to gastric secretions Problem: Acute Qualifiers: Laterality: right Lung location: unspecified part of lung Qualified Code( s): J69.0 - Pneumonitis due to inhalation of food and vomit Narrative: very SOB this morning. will defer discharge. on IV meropenem. (2) COPD (chronic obstructive pulmonary disease) Problem: Acute Qualifiers: COPD type: unspecified COPD Qualified Code(s): J44.9 - Chronic obstructive pulmonary disease, unspecified Narrative: very SOB and wheezing this morning. on IV solumedrol and breathing treatments. (3) CAD (coronary artery disease) Problem: Chronic Qualifiers: Coronary Disease-Associated Artery/Lesion type: [place] artery [place] vs. transplanted heart: [place] heart Associated angina: without angina Qualified Code(s): I25.10 - Atherosclerotic heart disease of [place] coronary artery without angina pectoris (4) Hyperlipidemia Problem: Chronic Qualifiers: Hyperlipidemia type: unspecified Qualified Code(s): E78.5 - Hyperlipidemia , unspecified (5) Hypertension Problem: Chronic Qualifiers: Hypertension type: essential hypertension Qualified Code(s): I10 - Essential (primary) hypertension (6) Esophageal cancer Problem: Inactive Qualifiers: Malignant neoplasm of esophagus location: unspecified location Qualified Code(s): C15.9 - Malignant neoplasm of esophagus, unspecified (7) Generalized weakness Problem: Acute
[2016-10-01] MEDS: PANTOPRAZOLE SODIUM 40 MG TABLET.EC PO SCH ×2 (09:56→21:30)
[2016-10-01] MEDS: ESCITALOPRAM OXALATE 10 MG TAB PO SCH (09:56)
[2016-10-01] MEDS: METOPROLOL SUCCINATE 50 MG TABLET.SA PO SCH (09:56)
[2016-10-01] MEDS: clonazePAM 0.5 MG TABLET PO SCH ×2 (09:57→21:30)
[2016-10-01] MEDS: CYANOCOBALAMIN 1,000 MCG TABLET PO SCH (09:57)
[2016-10-01] MEDS: NORMAL SALINE 1,000 ML IV PRN (14:20)
[2016-10-01] MEDS: TAMSULOSIN HCL 0.4 MG CAP.SR.24H PO SCH (17:44)
[2016-10-01] MEDS: ALBUTEROL SULFATE 2.5 MG/0.5 ML VIAL.NEB IH PRN (18:13)
[2016-10-01] MEDS: traZODone HCL 50 MG TABLET PO SCH (21:30)
[2016-10-01] MEDS: ENOXAPARIN SODIUM 40 MG/0.4 ML SYRG SC SCH (21:30)
[2016-10-01] MEDS: ALPRAZolam 0.25 MG TABLET PO SCH (21:30)
[2016-10-02] MEDS: METHYLPREDNISOLONE SOD SUCC 60 MG in WATER FOR INJ.,BACTERIOSTATIC 0 ML IV SCH ×3 (02:34→19:47)
[2016-10-02] MEDS: MEROPENEM 1 GM in NORMAL SALINE 100 ML IV SCH ×3 (02:35→17:56)
[2016-10-02] MEDS: NORMAL SALINE 1,000 ML IV PRN ×2 (04:41→19:48)
[2016-10-02] MEDS: ACETAMINOPHEN 325 MG TABLET PO PRN (06:31)
[2016-10-02] MEDS: ALPRAZolam 0.25 MG TABLET PO SCH ×2 (06:32→22:41)
[2016-10-02] MEDS: IPRATROPIUM BROMIDE 0.5 MG/2.5 ML VIAL.NEB IH SCH ×4 (07:04→18:31)
[2016-10-02] MEDS: BUDESONIDE 0.5 MG/2 ML VIAL.NEB IH SCH ×2 (07:07→18:35)
[2016-10-02] MEDS: ALBUTEROL SULFATE 2.5 MG/0.5 ML VIAL.NEB IH PRN ×3 (07:08→18:35)
[2016-10-02] MEDS: FORMOTEROL FUMARATE 20 MCG/2 ML VIAL IH SCH ×2 (07:08→18:35)
[2016-10-02 08:04] LABS: Hematocrit 37.8 % (42.0-52.0); Hemoglobin 12.8 gm/dL (13.5-18.0); Mean Cell Volume 91.5 fl (78-100); Mean Corpuscular Hgb Conc 33.9 g/dl (32-36); Mean Platelet Volume 9.8 fl (6.0-9.5); Neutrophil % 82.5 % (42-75.0); Platelet Count 215 K/mm3 (150-450); Red Blood Count 4.13 M/mm3 (4.7-6.0); Red Cell Distribution Width 12.2 % (11.5-14.0)
[2016-10-02 08:11] LABS: Albumin * 2.5 gm/dl (3.4-5.0); Anion Gap 9.5 mmol/L (6.8-13.8); Bilirubin, Total 0.3 mg/dL (0.0-1.1); Ca. Corrected For Albumin 8.9 mg/dL (8.4-10.2); Potassium 4.5 mmol/L (3.4-4.6); Total Protein 5.5 gm/dL (6.2-8.2)
[2016-10-02] MEDS: clonazePAM 0.5 MG TABLET PO SCH ×2 (09:09→22:41)
[2016-10-02] MEDS: ESCITALOPRAM OXALATE 10 MG TAB PO SCH (09:09)
[2016-10-02] MEDS: METOPROLOL SUCCINATE 50 MG TABLET.SA PO SCH (09:10)
[2016-10-02] MEDS: PANTOPRAZOLE SODIUM 40 MG TABLET.EC PO SCH ×2 (09:10→22:42)
[2016-10-02] MEDS: CYANOCOBALAMIN 1,000 MCG TABLET PO SCH (09:11)
--- NOTE | 2016-10-02 11:56 | PN ---
Subjective - Date and Time Seen Date: 10/02/16 Time: 07:10 Subjective Narrative: Improving. Coughing less. No chest pain. Less SOB. Hungry. SOB spell with wheezing this AM. Low grad temp elevation last night. Objective - Review of Systems Generalized/Overall Review: Reports: [place] EENTM: Reports: No Symptoms Reported Respiratory: Reports: Cough, Shortness of Breath, Wheezing Cardiac: Reports: No Symptoms Reported Abdominal: Reports: No Symptoms Reported Genitourinary Symptoms: Reports: No Symptoms Reported Musculoskeletal Complaints: Reports: No Symptoms Reported Neurological: Reports: No Symptoms Reported Skin: Reports: No Symptoms Reported Endocrine: Reports: No Symptoms Reported Misc: All systems neg except as marked - Vitals Vitals: Last Vital Signs Selected Entries 10/02/16 10/02/16 06:37 09:10 Temperature 37.6 C H Temperature Tympanic Source Pulse Rate 84 77 Respiratory 20 Rate Blood Pressure 159/93 95/60 Blood Pressure Supine Position O2 Sat by Pulse 94 Oximetry Oxygen Delivery Nasal Cannula Method Oxygen Flow 3 Rate - Abnormal Lab Findings Abnormal Lab Findings: Abnormal Lab Results 10/02/16 10/02/16 Range/Units 07:55 07:55 WBC 11.0 H (4.0-10.5) K/mm3 RBC 4.13 L (4.7-6.0) M/mm3 Hgb 12.8 L (13.5-18.0) gm/dL Hct 37.8 L (42.0-52.0) % MPV 9.8 H (6.0-9.5) fl Immature Gran % (Auto) 4.50 H (0.001-0.429) % Immature Gran # (Auto) 0.49 H (0.000-0.0310) K/mm3 Neutrophils % 82.5 H (42-75.0) % Lymphocytes % 9.0 L (20-51) % Neutrophils # 9.0 H (1.3-6.0) K/mm3 Lymphocytes # 1.0 L (1.5-3.5) k/mm3 Carbon Dioxide 33.0 H (24-32.6) mmol/L BUN 24 H (6-23) mg/dL BUN/Creatinine Ratio 30.0 H (9.0-21.6) Random Glucose 147 H (70-110) mg/dL Alkaline Phosphatase 46 L (50-170) U/L Total Protein 5.5 L (6.2-8.2) gm/dL Albumin 2.5 L (3.4-5.0) gm/dl - Exam Constitutional: Present: Alert, Oriented x3, Cooperative, Well developed, Well nourished, No distress ENT Exam: Present: normal ENT inspection Neck: Present: normal inspection Respiratory: Present: no respiratory distress, decreased breath sounds Cardiovascular/Chest: Present: regular rate, rhythm, no murmur Abdomen: Present: Normal bowel sounds, soft, nontender, nondistended, no rebound tenderness, no hepatospenomegaly, no masses Extremity: Present: non-tender, no pedal edema Skin Exam: Present: normal color, warm/dry, no cyanosis Neurologic: Present: alert, oriented x 3 Appearance: Present: appropriate appearance, neat Eye contact: Present: cooperative, good eye contact, normal speech Thoughts: Present: normal thought pattern Assessment/Plan Plan Narrative: Concerned about his one low BP this morning, the report of increased wheezing given to me by RT, and the report of a spell of difficulty breathing in the very early hours of this morning. also complains of bilateral lower rib cage pain. Will monitor vitals every hour for a while as we try to decide if we are going to send him home today. Will provide medicine for rib cage pain - Problems/Diagnosis (1) COPD (chronic obstructive pulmonary disease) Problem: Acute Qualifiers: COPD type: unspecified COPD Qualified Code(s): J44.9 - Chronic obstructive pulmonary disease, unspecified (2) Aspiration pneumonia due to gastric secretions Problem: Acute Qualifiers: Laterality: right Lung location: unspecified part of lung Qualified Code( s): J69.0 - Pneumonitis due to inhalation of food and vomit (3) CAD (coronary artery disease) Problem: Chronic Qualifiers: Coronary Disease-Associated Artery/Lesion type: [place] artery [place] vs. transplanted heart: [place] heart Associated angina: without angina Qualified Code(s): I25.10 - Atherosclerotic heart disease of [place] coronary artery without angina pectoris (4) Hypertension Problem: Chronic Qualifiers: Hypertension type: essential hypertension Qualified Code(s): I10 - Essential (primary) hypertension (5) Hyperlipidemia Problem: Chronic Qualifiers: Hyperlipidemia type: unspecified Qualified Code(s): E78.5 - Hyperlipidemia , unspecified (6) Supplemental oxygen dependent Problem: Chronic
[2016-10-02] MEDS: traMADol HCL 50 MG TABLET PO SCH ×2 (12:36→17:59)
[2016-10-02] MEDS: TAMSULOSIN HCL 0.4 MG CAP.SR.24H PO SCH (17:56)
[2016-10-02] MEDS: traZODone HCL 50 MG TABLET PO SCH (22:41)
[2016-10-02] MEDS: ENOXAPARIN SODIUM 40 MG/0.4 ML SYRG SC SCH (22:42)
[2016-10-03] MEDS: ALBUTEROL SULFATE 2.5 MG/0.5 ML VIAL.NEB IH PRN ×2 (01:15→10:07)
[2016-10-03] MEDS: traMADol HCL 50 MG TABLET PO SCH ×3 (01:36→12:37)
[2016-10-03] MEDS: MEROPENEM 1 GM in NORMAL SALINE 100 ML IV SCH ×2 (01:36→09:21)
[2016-10-03] MEDS: METHYLPREDNISOLONE SOD SUCC 60 MG in WATER FOR INJ.,BACTERIOSTATIC 0 ML IV SCH ×2 (02:25→10:44)
[2016-10-03 06:09] LABS: Hematocrit 34.9 % (42.0-52.0); Hemoglobin 11.7 gm/dL (13.5-18.0); Mean Cell Volume 92.3 fl (78-100); Mean Corpuscular Hgb Conc 33.5 g/dl (32-36); Mean Platelet Volume 9.9 fl (6.0-9.5); Neutrophil # 7.5 K/mm3 (1.3-6.0); Neutrophil % 85.9 % (42-75.0); Platelet Count 184 K/mm3 (150-450); Red Blood Count 3.78 M/mm3 (4.7-6.0); Red Cell Distribution Width 12.1 % (11.5-14.0); White Blood Count 8.7 K/mm3 (4.0-10.5)
[2016-10-03 06:24] LABS: Albumin * 2.3 gm/dl (3.4-5.0); Anion Gap 6.7 mmol/L (6.8-13.8); BUN/Creatinine Ratio 26.7 (9.0-21.6); Bilirubin, Total 0.3 mg/dL (0.0-1.1); Ca. Corrected For Albumin 8.7 mg/dL (8.4-10.2); Calcium * 7.7 mg/dL (7.9-10.9); Carbon Dioxide 32.6 mmol/L (24-32.6); Potassium 4.3 mmol/L (3.4-4.6); Total Protein 5.1 gm/dL (6.2-8.2)
[2016-10-03] MEDS: FORMOTEROL FUMARATE 20 MCG/2 ML VIAL IH SCH (06:24)
[2016-10-03] MEDS: IPRATROPIUM BROMIDE 0.5 MG/2.5 ML VIAL.NEB IH SCH ×2 (06:24→10:07)
[2016-10-03] MEDS: BUDESONIDE 0.5 MG/2 ML VIAL.NEB IH SCH (06:25)
[2016-10-03] MEDS ORDERED: CYANOCOBALAMIN 1,000 MCG/ML VIAL IM ONE (09:00)
[2016-10-03] MEDS: PANTOPRAZOLE SODIUM 40 MG TABLET.EC PO SCH (09:21)
[2016-10-03] MEDS: clonazePAM 0.5 MG TABLET PO SCH (09:21)
[2016-10-03] MEDS: ESCITALOPRAM OXALATE 10 MG TAB PO SCH (09:21)
[2016-10-03] MEDS: CYANOCOBALAMIN 1,000 MCG TABLET PO SCH (09:21)
[2016-10-03] MEDS: METOPROLOL SUCCINATE 50 MG TABLET.SA PO SCH (09:24)
[2016-10-03 10:34] VITALS: BP 126/70
[2016-10-03] MEDS: NORMAL SALINE 1,000 ML IV PRN (11:18)
--- NOTE | 2016-10-03 11:46 | DS ---
(1) COPD (chronic obstructive pulmonary disease) Problem: Acute Qualifiers: COPD type: COPD with acute exacerbation Qualified Code(s): J44.1 - Chronic obstructive pulmonary disease with (acute) exacerbation (2) Aspiration pneumonia due to gastric secretions Problem: Acute Qualifiers: Laterality: right Lung location: middle lobe of lung Qualified Code(s): J69.0 - Pneumonitis due to inhalation of food and vomit (3) CAD (coronary artery disease) Problem: Chronic Qualifiers: Coronary Disease-Associated Artery/Lesion type: [place] artery [place] vs. transplanted heart: [place] heart Associated angina: without angina Qualified Code(s): I25.10 - Atherosclerotic heart disease of [place] coronary artery without angina pectoris (4) Hypertension Problem: Chronic Qualifiers: Hypertension type: essential hypertension Qualified Code(s): I10 - Essential (primary) hypertension (5) Hyperlipidemia Problem: Chronic Qualifiers: Hyperlipidemia type: unspecified Qualified Code(s): E78.5 - Hyperlipidemia , unspecified (6) Supplemental oxygen dependent Diagnosis(s): COPD with chronic respiratory failure. Problem: Chronic (7) GERD (gastroesophageal reflux disease) Problem: Chronic Qualifiers: Esophagitis presence: esophagitis presence not specified Qualified Code(s) : K21.9 - Gastro-esophageal reflux disease without esophagitis Description of Stay: Treatment with antibiotics, steroids, breathing treatments and meds for reflux. Improvement was definite, but very very slow. He would benefit from Pulmonary Rehab, something he has not had previously. His pneumonia is clearing up. Procedures Performed: none Discharge Disposition: Home self care Disposition: Home self-care Condition: Fair Discharge Diet: General/regular food Problem Oriented Discharge Instructions to Patient/Family: Community-Acquired Pneumonia, Adult, [id number] Additional Patient Instructions (free text): Continue O2 by nasal cannula as prior to admission. Follow up with Dr. Mccollum 1 week. CBC and BMP blood tests in 1 week. CXR PA and LAT in 2 weeks. Prior to discharge, set up outpt pulmonary rehab Prescriptions (Any new or edited meds): Amox Tr/Potassium Clavulanate [Augmentin 500-125 Tablet] 500 mg PO TID #30 tab Complete Home Medications List: Complete Home Medication List: ALPRAZolam [Xanax] 0.25 mg PO HS 09/23/16 Albuterol Sulfate [Ventolin Hfa] 1 - 2 puff IH Q4H 09/23/16 Arformoterol Tartrate [Brovana] 15 mcg IH BID 09/23/16 Budesonide [Pulmicort Respules] 2 ml IH BID 09/23/16 Cyanocobalamin [Vitamin B-12] 1,000 mcg IM Q30D 09/23/16 Cyclobenzaprine HCl 5 - 10 mg PO Q12H 09/23/16 Escitalopram Oxalate [Lexapro] 20 mg PO DAILY 09/23/16 Ipratropium [place] 0.2 mg IH QID 09/23/16 Meclizine HCl [Antivert] 25 mg PO QID PRN 09/23/16 Nitroglycerin [Nitrostat] 1 tab SL Q5M 09/23/16 Pantoprazole Sodium 40 mg PO BID 09/23/16 Prednisone [Zac] 5 mg PO DAILY 09/23/16 Tamsulosin HCl [Flomax] 0.4 mg PO DAILY 09/23/16 Tramadol HCl [Rybix Odt] 50 mg PO Q6H PRN 09/23/16 clonazePAM [Klonopin] 0.5 mg PO Q12H 09/23/16 traZODone HCL [Desyrel] 200 mg PO HS 09/23/16 Metoprolol Succinate [Toprol Xl] 50 mg PO DAILY 09/24/16 Acetaminophen [Tylenol] 650 mg PO Q4H PRN #0 tablet 10/03/16 Albuterol Sulfate [Albuterol Sulfate 2.5 MG/0.5ML] 2.5 mg IH Q2H PRN #0 vial.neb 10/03/16 Amox Tr/Potassium Clavulanate [Augmentin 500-125 Tablet] 500 mg PO TID #30 tab 10/03/16 Ipratropium [place] [Atrovent] 0.5 mg IH QIDRT vial.neb 10/03/16
== END 2016-10-03 13:44 | disposition home or self-care (01) | DRG 178 ==
LOC: ER 15:56 → MS 17:46 → UNDOADMOB 17:46 → OBSVTOIN 09-24 15:56
PROVIDERS: ADMIT Allergy & Immunology; ATTEND Allergy & Immunology
PROC: 4A033R1 Measurement of Arterial Saturation, Peripheral, Percutaneous Approach (ICD-10-PCS; principal; 2016-09-23)
DX: J69.0 Pneumonitis due to inhalation of food and vomit (principal); J44.1 Chronic obstructive pulmonary disease with (acute) exacerbation; I10 Essential (primary) hypertension; E78.5 Hyperlipidemia, unspecified; K21.9 Gastro-esophageal reflux disease without esophagitis; I25.10 Atherosclerotic heart disease of native coronary artery without angina pectoris; I25.2 Old myocardial infarction; Z95.1 Presence of aortocoronary bypass graft; Z87.891 Personal history of nicotine dependence; Z85.01 Personal history of malignant neoplasm of esophagus; Z88.1 Allergy status to other antibiotic agents; Z88.8 Allergy status to other drugs, medicaments and biological substances; Z99.81 Dependence on supplemental oxygen
CPT/HCPCS: 36415; 36600; 71010; 71020; 80048; 80053; 82803; 83605; 83880; 84439; 84443; 84484; 85025; 87040; 87070; 87449; 93005; 94640; 94760; 96374; 96375; 97110; 97116; 97162; 99284; G0378

== ENCOUNTER 2018-06-16 11:16 | Observation (INO) | payer BC, MEDICARE ==
[2018-06-16] MEDS ORDERED: DILTIAZEM HCL 5 MG/ML VIAL IV ONE ×3 (11:21→11:33)
[2018-06-16] MEDS ORDERED: DILTIAZEM HCL 125 MG in DEXTROSE 5 % IN WATER 100 ML IV PRN ×2 (11:37)
--- NOTE | 2018-06-16 11:44 | ERNOTE ---
Chest Pain/Cardiac HPI Date of Service: 06/16/18 Chief Complaint: Palpitations Time Seen by Provider: 06/16/18 11:20 Source: patient, family Exam Limitations: no limitations Immunizations: IMMUNIZATION HX Immunizations Up to Date Yes History of Influenza Vaccine Yes Hx Pneumococcal Vaccination Yes Allergies/Adverse Reactions: Allergies cephalexin Allergy (Verified 06/16/18 11:22) prednisone Allergy (Verified 06/16/18 11:22) simvastatin Allergy (Verified 06/16/18 11:22) Iodinated Contrast- Oral and IV Dye [Iodinated Contrast Media - IV Dye] Adverse Reaction (Severe, Verified 06/16/18 11:22) "coded" codeine Adverse Reaction (Unknown, Verified 06/16/18 11:22) nausea Home Medications: HOME MEDICATIONS Budesonide [Pulmicort Respules] 2 ml INHALATION BID 09/23/16 [Last Taken Unknown] Cyanocobalamin [Vitamin B-12] 1,000 mcg IM Q30D 09/23/16 [Last Taken 09/05/16] Cyclobenzaprine HCl 5 - 10 mg PO TID 09/23/16 [Last Taken Unknown] Escitalopram Oxalate [Lexapro] 20 mg PO DAILY 09/23/16 [Last Taken Unknown] Ipratropium [place] 0.2 mg INHALATION QID 09/23/16 [Last Taken Unknown] Meclizine HCl [Antivert] 25 mg PO TID PRN 09/23/16 [Last Taken Unknown] Nitroglycerin [Nitrostat] 1 tab SUBLINGUAL Q5M 09/23/16 [Last Taken Unknown] Pantoprazole Sodium 40 mg PO BID 09/23/16 [Last Taken Unknown] Tamsulosin HCl [Flomax] 0.4 mg PO HS 09/23/16 [Last Taken Unknown] Tramadol HCl [Rybix Odt] 50 mg PO BID PRN 09/23/16 [Last Taken Unknown] clonazePAM [Klonopin] 0.5 mg PO BID 09/23/16 [Last Taken Unknown] Metoprolol Succinate [Toprol Xl] 50 mg PO DAILY 09/24/16 [Last Taken Unknown] Albuterol Sulfate [Albuterol Sulfate 2.5 MG/0.5ML] 2.5 mg INHALATION Q2H PRN #0 vial.neb 10/03/16 [Last Taken Unknown] arformoterol 15 mcg/2 mL solution for nebulization 2 ml IH BID 06/11/18 [Last Taken Unknown] gabapentin 300 mg capsule 300 mg PO DAILY 06/11/18 [Last Taken Unknown] promethazine 25 mg tablet 25 mg PO Q6H PRN 06/11/18 [Last Taken Unknown] Glycopyrrolate/Formoterol Fum [Bevespi Aerosphere Inhaler] 2 puff IH BID 06/16/18 [Last Taken Unknown] Narrative: patient presents from pulmonary rehab with c/o tachycardia and mild chest pain. patient relates started yesterday Timing: constant Severity/Quality: moderate, pressure, stabbing Location: substernal Chest Pain Radiation: no radiation Activities at Onset: rest Modifying Factors - Improves: Present: nothing Nitro Today/Relief: no nitro taken today Aspirin Treatment Today: no aspirin today Associated Symptoms: Present: dizziness, palpitations Prior Chest Pain/Cardiac Workup: Reports: heart attack, cardiac cath Review of Systems - Review of Systems Constitutional: Present: See HPI EYE: Present: no symptoms reported ENT: Present: no symptoms reported Respiratory: Present: no symptoms reported Cardiology: Present: See HPI, chest pain, palpitations Gastrointestinal/Abdominal: Present: no symptoms reported Genitourinary: Present: no symptoms reported Musculoskeletal: Present: no symptoms reported Skin: Present: no symptoms reported Neurological: Present: no symptoms reported Endocrine: Present: no symptoms reported Hematologic/Lymphatic: Present: no symptoms reported Psych: Present: no symptoms reported All Other Systems: All systems neg except as marked Medical History (Last Reviewed 06/16/18 @ 11:22 by Ondina Vera RN) Neck fracture (Resolved) Onset Date: Unknown Vitamin B 12 deficiency (Acute) Onset Date: Unknown Depression (Acute) Onset Date: Unknown COPD (chronic obstructive pulmonary disease) (Chronic) Onset Date: Unknown CAD (coronary artery disease) (Chronic) Onset Date: Unknown BPH (benign prostatic hyperplasia) (Chronic) Onset Date: Unknown Asthma (Acute) Onset Date: Unknown Anxiety (Acute) Onset Date: Unknown Anorexia (Acute) Onset Date: ~10/10/16 AAA (abdominal aortic aneurysm) (Acute) Onset Date: ~2015 Surgical History: Surgical History (Last Reviewed 06/16/18 @ 11:22 by Ondina Vera RN) History of arthroscopy of shoulder Onset Date: ~2014 History of colonoscopy Onset Date: ~2015 History of lobectomy of lung Onset Date: ~1979 History of penile implant Onset Date: Unknown Family History: Family History (Last Reviewed 06/16/18 @ 11:22 by Ondina Vera RN) Mother Cancer Father CAD (coronary artery disease) Social History: Preferred Language Bhutanese Smoking Status Former smoker Abuse History No History of abuse Psych History No pertinent hx Alcohol Use rarely Drug Use none (Last Updated 06/12/18 @ 09:28 by Hardy Caro MD) No Social History Section defined Physical Exam - Physical Exam General Appearance: Present: moderate distress, anxious Head Exam: Present: normal inspection, no evidence of injury Eye Exam: Normal inspection: bilateral, PERRL: bilateral, EOMI: bilateral Ears, Nose, Throat: Present: normal ENT inspection, normal pharynx Neck: Present: normal inspection, nontender Respiratory: Present: no respiratory distress, normal breath sounds, no accessory muscle use, chest nontender, lungs clear Cardiovascular/Chest: Present: tachycardia, irregularly irregular Gastrointestinal/Abdominal: Present: normal bowel sounds, nontender, nondistended, soft, no organomegaly Back Exam: Present: normal inspection, normal range of motion, no CVA tenderness, no vertebral tenderness Extremity Exam: Present: normal inspection, non-tender, normal range of motion, no edema Neurological Exam: Present: alert, oriented, normal mood/affect, no motor/sensory deficits Skin Exam: Present: normal color, warm/dry Lymphatic Exam: Present: no adenopathy ED Progress - Date and Time Seen: Date and Time: 06/16/18 12:35 patient converts to nsr with cardizem, chest pain resolves, discused condition with dr delgadillo, to admit to observation - Results and Orders Patient's Lab Results:: I have reviewed the patient's lab results. - Vital Signs Patient's Vital Signs:: I have reviewed the patient's vital signs. Vital Signs: Vital Signs 06/16/18 11:18 06/16/18 11:26 06/16/18 11:34 Temperature 36.7 C Pulse Rate 159 H 159 H 90 Respiratory Rate 26 H 20 Blood Pressure 175/110 H 175/110 H 182/106 H O2 Sat by Pulse Oximetry 97 97 - EKG EKG: atrial fibrillation, atrial flutter EKG read: Interp. by me - X-Ray X-Ray #1 X-Ray: chest - copd, questionable pulmonary nodule on right lung Interpretation: Discd w/ radiologist - Progress/Reassessment Chief Complaint: Palpitations Progress:: Improved - Transfer of Care Expected Disposition: Admit Plan - Plan Plan: to admit to observation Departure Clinical Impression: COPD (chronic obstructive pulmonary disease), Chest pain in adult, Atrial fibrillation and flutter - Departure Disposition: Short Term Hospital Inpatient Condition: Fair Referrals: Hardy Caro MD [Primary Care Provider] -
[2018-06-16 11:48] LABS: Hematocrit 37.6 % (42.0-52.0); Hemoglobin 12.4 gm/dL (13.5-18.0); Mean Cell Volume 93.8 fl (78-100); Mean Corpuscular Hemoglobin 30.9 pg (27-31); Mean Platelet Volume 9.8 fl (8-11.3); Neutrophil # 3.7 K/mm3 (1.3-6.0); Neutrophil % 57.7 % (42-75.0); Platelet Count 175 K/mm3 (150-450); Red Blood Count 4.01 M/mm3 (4.7-6.0); White Blood Count 6.4 K/mm3 (4.0-10.5)
[2018-06-16 12:08] LABS: Troponin I Less than 0.017 ng/mL (0.00-0.10)
[2018-06-16 12:09] LABS: ALT 20 U/L (19-67); AST 23 U/L (0-48); Albumin * 3.5 gm/dl (3.4-5.0); Alkaline Phosphatase * 83 U/L (50-170); Anion Gap 9.4 mmol/L (6.8-13.8); BNP * 267 pg/mL (5-350); Bilirubin, Total 0.4 mg/dL (0.0-1.1); Blood Urea Nitrogen 12 mg/dL (6-23); Ca. Corrected For Albumin 9.4 mg/dL (8.4-10.2); Calcium * 9.3 mg/dL (7.9-10.9); Carbon Dioxide 31.8 mmol/L (24-32.6); Chloride 101 mmol/L (97-106); Glucose * 90 mg/dL (70-110); Potassium 4.2 mmol/L (3.4-4.6); Sodium 138 mmol/L (132-142); Total Protein 7.2 gm/dL (6.2-8.2)
[2018-06-16] MEDS: NORMAL SALINE 1,000 ML IV PRN ×2 (14:04→22:33)
[2018-06-16] MEDS ORDERED: ALBUTEROL SULFATE 2.5 MG/0.5 ML VIAL.NEB IH PRN (17:07)
[2018-06-16] MEDS ORDERED: ENOXAPARIN SODIUM 40 MG/0.4 ML SYRG SC SCH (17:15)
--- NOTE | 2018-06-16 18:07 | HP ---
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 He was admitted to the floor for new onset A-fib with RVR. He was seen in Pulmonary rehab today where he developed SOB, dizziness, mild chest pain, and rapid heart rate. In the ER he was converted back to NSR with diltiazem and transferred to the floor for observation. He has been in NS for the last 6 hours. Initial troponin was negative in the ER. He is stable currently and feeling well. He has a hx of CVA. He is not currently on anticoagulation. He states his supervisor/port director told him that he is not to be on one, refuses being tx with lovenox at this time. He denies any neurological changes at this time. His COPD is fairly advanced. He usually is short of breath. His medications have been updated and will be restarted. Medical History (Last Reviewed 06/16/18 @ 13:05 by Leann Flynn RN) Neck fracture (Resolved) Onset Date: Unknown Vitamin B 12 deficiency (Acute) Onset Date: Unknown Depression (Acute) Onset Date: Unknown COPD (chronic obstructive pulmonary disease) (Chronic) Onset Date: Unknown CAD (coronary artery disease) (Chronic) Onset Date: Unknown BPH (benign prostatic hyperplasia) (Chronic) Onset Date: Unknown Asthma (Acute) Onset Date: Unknown Anxiety (Acute) Onset Date: Unknown Anorexia (Acute) Onset Date: ~10/10/16 AAA (abdominal aortic aneurysm) (Acute) Onset Date: ~2015 Surgical History: Surgical History (Last Reviewed 06/16/18 @ 13:05 by Leann Flynn RN) History of arthroscopy of shoulder Onset Date: ~2014 History of colonoscopy Onset Date: ~2015 History of lobectomy of lung Onset Date: ~1979 History of penile implant Onset Date: Unknown Family History: Family History (Last Reviewed 06/16/18 @ 13:05 by Leann Flynn RN) Mother Cancer Father CAD (coronary artery disease) Social History: Patient Lives/Resources With Spouse Utilized Occupation retired Preferred Language Urdu Do you have any mormon or Yes: Buddhist cultural preference? Smoking Status Former smoker Have you smoked in the past 12 No months Abuse History No History of abuse Psych History No pertinent hx Alcohol Use rarely Drug Use none (Last Updated 06/12/18 @ 09:28 by Hardy Caro MD) No Social History Section defined Review Of Systems (GEN) - Review of Systems Generalized/Overall Review: Absent: No Symptoms Reported, Chills, Fever, Diaphoresis, Fatigue EENTM: Present: No Symptoms Reported Respiratory: Present: Shortness of Breath. Absent: Cough, Wheezing Cardiac: Absent: Chest Pain, Edema, Palpitations - resolved Abdominal: Present: No Symptoms Reported Genitourinary: Present: No Symptoms Reported Musculoskeletal: Present: No Symptoms Reported Neurological: Present: No Symptoms Reported Skin: Present: No Symptoms Reported Endocrine: Present: No Symptoms Reported Immunizations: IMMUNIZATION HX Immunizations Up to Date Yes History of Influenza Vaccine Yes Hx Pneumococcal Vaccination Yes Allergies/Adverse Reactions: Allergies Allergy/AdvReac Type Severity Reaction Status Date / Time cephalexin Allergy Verified 06/16/18 13:05 prednisone Allergy Verified 06/16/18 13:05 simvastatin Allergy Verified 06/16/18 13:05 Iodinated Contrast- Oral and AdvReac Severe "coded" Verified 06/16/18 13:05 IV Dye [Iodinated Contrast Media - IV Dye] codeine AdvReac Unknown nausea Verified 06/16/18 13:05 Home Medications: HOME MEDICATIONS Budesonide [Pulmicort Respules] 2 ml INHALATION BID 09/23/16 [Last Taken 06/16/18] Cyanocobalamin [Vitamin B-12] 1,000 mcg IM Q30D 09/23/16 [Last Taken 06/16/18] Cyclobenzaprine HCl 5 - 10 mg PO TID 09/23/16 [Last Taken 06/16/18] Escitalopram Oxalate [Lexapro] 20 mg PO DAILY 09/23/16 [Last Taken 06/16/18] Ipratropium [place] 0.2 mg INHALATION QID 09/23/16 [Last Taken 06/16/18] Meclizine HCl [Antivert] 25 mg PO TID PRN 09/23/16 [Last Taken Unknown] Nitroglycerin [Nitrostat] 1 tab SUBLINGUAL Q5M 09/23/16 [Last Taken Unknown] Pantoprazole Sodium 40 mg PO BID 09/23/16 [Last Taken 06/16/18] Tamsulosin HCl [Flomax] 0.4 mg PO HS 09/23/16 [Last Taken 06/15/18] Tramadol HCl [Rybix Odt] 50 mg PO BID PRN 09/23/16 [Last Taken Unknown] clonazePAM [Klonopin] 0.5 mg PO BID 09/23/16 [Last Taken 06/16/18] Metoprolol Succinate [Toprol Xl] 50 mg PO DAILY 09/24/16 [Last Taken 06/16/18] Albuterol Sulfate [Albuterol Sulfate 2.5 MG/0.5ML] 2.5 mg INHALATION Q2H PRN #0 vial.neb 10/03/16 [Last Taken 06/16/18] arformoterol 15 mcg/2 mL solution for nebulization 2 ml IH BID 06/11/18 [Last Taken 06/16/18] gabapentin 300 mg capsule 300 mg PO DAILY 06/11/18 [Last Taken 06/16/18] promethazine 25 mg tablet 25 mg PO Q6H PRN 06/11/18 [Last Taken Unknown] Glycopyrrolate/Formoterol Fum [Bevespi Aerosphere Inhaler] 2 puff IH BID 06/16/18 [Last Taken 06/16/18] Exam - Exam Vital Signs: Vital Signs - Last Taken Temp 36.9 C 06/16/18 17:32 Pulse 90 06/16/18 17:32 Resp 23 H 06/16/18 17:32 BP 151/77 H 06/16/18 17:32 Pulse Ox 98 06/16/18 17:32 Constitutional: Present: Alert, Oriented x3, Cooperative ENT Exam: Present: normal ENT inspection, hearing grossly normal Eye Exam: bilateral eye: normal inspection, EOMI Respiratory: Present: chest non-tender, lungs clear. Absent: no respiratory distress Cardiovascular/Chest: Present: normal peripheral pulses, regular rate, rhythm, no edema, no gallop, no JVD, no murmur Abdomen: Present: Normal bowel sounds, soft, nontender Extremity: Absent: lower extremity edema, leg pain Skin Exam: Present: normal color, warm/dry Appearance: Present: appropriate appearance, appropriate insight Eye contact: Present: cooperative, good eye contact Thoughts: Present: normal thought pattern, normal mood /affect Diagnostic Studies: Abnormal Lab Results 06/16/18 Range/Units 11:40 RBC 4.01 L (4.7-6.0) M/mm3 Hgb 12.4 L (13.5-18.0) gm/dL Hct 37.6 L (42.0-52.0) % Immature Gran % (Auto) 0.50 H (0.001-0.429) % Monocytes % 11.7 H (0.0-9) % Eosinophils % 5.1 H (0.0-3.0) % Basophils % 1.1 H (0.0-1.0) % Laboratory Results WBC 6.4 K/mm3 (4.0-10.5) 06/16/18 11:40 RBC 4.01 M/mm3 (4.7-6.0) L 06/16/18 11:40 Hgb 12.4 gm/dL (13.5-18.0) L 06/16/18 11:40 Hct 37.6 % (42.0-52.0) L 06/16/18 11:40 MCV 93.8 fl (78-100) 06/16/18 11:40 MCH 30.9 pg (27-31) 06/16/18 11:40 MCHC 33.0 g/dl (32-36) 06/16/18 11:40 RDW 13.0 % (11.5-14.0) 06/16/18 11:40 Plt Count 175 K/mm3 (150-450) 06/16/18 11:40 MPV 9.8 fl (8-11.3) 06/16/18 11:40 Immature Gran % (Auto) 0.50 % (0.001-0.429) H 06/16/18 11:40 Immature Gran # (Auto) 0.03 K/mm3 (0.000-0.0310) 06/16/18 11:40 Neutrophils % 57.7 % (42-75.0) 06/16/18 11:40 Lymphocytes % 23.9 % (20-51) 06/16/18 11:40 Monocytes % 11.7 % (0.0-9) H 06/16/18 11:40 Eosinophils % 5.1 % (0.0-3.0) H 06/16/18 11:40 Basophils % 1.1 % (0.0-1.0) H 06/16/18 11:40 Nucleated RBC % 0.0 k/mm3 (0-1) 06/16/18 11:40 Neutrophils # 3.7 K/mm3 (1.3-6.0) 06/16/18 11:40 Lymphocytes # 1.53 k/mm3 (1.5-3.5) 06/16/18 11:40 Monocytes # 0.8 k/mm3 (0.0-1.0) 06/16/18 11:40 Eosinophils # 0.3 k/mm3 (0.0-0.7) 06/16/18 11:40 Absolute Basophils 0.1 k/mm3 (0.0-0.1) 06/16/18 11:40 PT 10.0 Seconds (9.0-11.0) 06/16/18 11:40 INR (Anticoag Therapy) 1.00 INR (0.90-1.10) 06/16/18 11:40 PTT (Mono) 24.0 Seconds (24-32) 06/16/18 11:40 Sodium 138 mmol/L (132-142) 06/16/18 11:40 Plasma Sodium 138 mmol/L (130-142) 06/16/18 11:40 Potassium 4.2 mmol/L (3.4-4.6) 06/16/18 11:40 Chloride 101 mmol/L (97-106) 06/16/18 11:40 Carbon Dioxide 31.8 mmol/L (24-32.6) 06/16/18 11:40 Anion Gap 9.4 mmol/L (6.8-13.8) 06/16/18 11:40 BUN 12 mg/dL (6-23) 06/16/18 11:40 Creatinine 1.09 mg/dL (0.4-1.4) 06/16/18 11:40 Est GFR (Non-Af Amer) 71 mL/min (60-130) 06/16/18 11:40 BUN/Creatinine Ratio 11.0 (9.0-21.6) 06/16/18 11:40 Random Glucose 90 mg/dL (70-110) 06/16/18 11:40 Calcium 9.3 mg/dL (7.9-10.9) 06/16/18 11:40 Calcium Adj for Albumin 9.4 mg/dL (8.4-10.2) 06/16/18 11:40 Total Bilirubin 0.4 mg/dL (0.0-1.1) 06/16/18 11:40 AST 23 U/L (0-48) 06/16/18 11:40 ALT 20 U/L (19-67) 06/16/18 11:40 Alkaline Phosphatase 83 U/L (50-170) 06/16/18 11:40 Troponin I 0.018 ng/mL (0.00-0.10) 06/16/18 16:55 B-Natriuretic Peptide 267 pg/mL (5-350) 06/16/18 11:40 Total Protein 7.2 gm/dL (6.2-8.2) 06/16/18 11:40 Albumin 3.5 gm/dl (3.4-5.0) 06/16/18 11:40 Assessment/Plan - Assessment/Plan (1) Atrial fibrillation and flutter Assessment: Has been in normal sinus since being converted in the ER. Will start diltiazem 30 mg QID tonight to maintain. Unsure as to why he can not be on an anticoagulant but he is adamant that he was told never to be on anything- including ASA, IBU, etc. Currently he is stable, vitals much improved. His BP is minimally elevated but this should respond to the dilt. Will monitor, the nurses to call me if his BP ever is greater than 160/90 He denies any chest pain. 2nd troponin just returned, will order one more as this one increased (though still considered negative). If he remains asymptomatic, likely home tomorrow. Problem: Acute (2) Chest pain in adult Assessment: Resolved. Will continue to monitor. One more set of trops to return @ 1999 Problem: Acute (3) COPD (chronic obstructive pulmonary disease) Assessment: Restarted his home meds. He denies worsening SOB, feels like he is at his baseline. He is sating to much on 3 liters, will have it turned down to 2 L and will monitor. Want o2 to stay between 90-94% Problem: Chronic (4) Benign essential hypertension Assessment: His BP continues to improve since being on the floor. Last set was WNL. Should continue to improve on diltiazem. Will monitor. Problem: Chronic (5) CAD (coronary artery disease) Problem: Chronic
[2018-06-16] MEDS: IPRATROPIUM BROMIDE 0.5 MG/2.5 ML VIAL.NEB IH SCH (18:19)
[2018-06-16] MEDS: BUDESONIDE 0.5 MG/2 ML VIAL.NEB IH SCH (18:19)
[2018-06-16] MEDS: FORMOTEROL FUMARATE 20 MCG/2 ML VIAL IH SCH (18:20)
[2018-06-16] MEDS: DILTIAZEM HCL 30 MG TABLET PO SCH (18:55)
[2018-06-16] MEDS ORDERED: TAMSULOSIN HCL 0.4 MG CAP.SR.24H PO SCH (19:00)
[2018-06-16] MEDS: clonazePAM 0.5 MG TABLET PO SCH (20:28)
[2018-06-16] MEDS: PANTOPRAZOLE SODIUM 40 MG TABLET.EC PO SCH (20:28)
[2018-06-17] MEDS: DILTIAZEM HCL 30 MG TABLET PO SCH ×2 (02:34→10:44)
[2018-06-17] MEDS: BUDESONIDE 0.5 MG/2 ML VIAL.NEB IH SCH (06:01)
[2018-06-17] MEDS: IPRATROPIUM BROMIDE 0.5 MG/2.5 ML VIAL.NEB IH SCH ×2 (06:01→10:01)
[2018-06-17] MEDS: FORMOTEROL FUMARATE 20 MCG/2 ML VIAL IH SCH (06:01)
[2018-06-17] MEDS: PANTOPRAZOLE SODIUM 40 MG TABLET.EC PO SCH (06:40)
[2018-06-17] MEDS: NORMAL SALINE 1,000 ML IV PRN (06:42)
[2018-06-17] MEDS ORDERED: ESCITALOPRAM OXALATE 10 MG TAB PO SCH (09:00)
[2018-06-17] MEDS ORDERED: METOPROLOL SUCCINATE 50 MG TABLET.SA PO SCH (09:00)
[2018-06-17] MEDS ORDERED: TIOTROPIUM BROMIDE 5 CAP INHALER IH SCH (09:00)
[2018-06-17] MEDS: clonazePAM 0.5 MG TABLET PO SCH (09:16)
--- NOTE | 2018-06-17 11:00 | DS ---
(1) Atrial fibrillation and flutter Diagnosis(s): Patient has remained in NSR since being converted in the ER. Will send him home on Diltiazem 30 mg TID. Will have him follow up both with his PCP and mattress renovator in the next 3-7 days. He will call his mattress renovator to schedule an appointment. Unsure as to why he is not able to be on any anticoagulation. This was again addressed this morning and he is adamant that he will not take it based on what his previous mattress renovator told him. His current mattress renovator is also trying to figure this out per the patient. Discussed risk of embolic event happening, patient states his understanding, wishes to only be rate controlled at this time. Problem: Acute (2) Chest pain in adult Diagnosis(s): Resolved. This morning he had chest wall discomfort with palpation, ekg obtained which shoowed no acute cardiac pathology. He was able to get up and do PT, he remained in NSR during this time and had no recurring arrhythmia, chest pain, or changes in SOB (from his baseline). His cardiac enzymes were negative during this stay. Will allow his mattress renovator to determine if he needs further work up as he does have a significant cardiac hx. Will have him follow up with Dr. Mccollum early next week. Problem: Acute (3) COPD (chronic obstructive pulmonary disease) Problem: Chronic (4) Benign essential hypertension Diagnosis(s): Stable, at his baseline. No changes to his current tx plan. Problem: Chronic (5) CAD (coronary artery disease) Diagnosis(s): Allergic to statins. re-emphasized need for healthy diet and exercise. Problem: Chronic Description of Stay: Patient was admitted to the floor under observation for new onset A-fib/flutter with rapid ventricular rate. He was pharmacologically converted with diltiazem in the ER and was started on this while on the floor. He has remained in NSR for the last 24 hrs. Will discharge him home on this medication, with instructions to discuss this with his mattress renovator who he is to see soon. He had negative cardiac enzymes x3 while here. His chest pain resolves once his HR was controlled (again in the ER) and he had no other issues with this while here. 2nd ekg obtained morning of discharge as he was endorsing some chest wall discomfort (reproducible with palpation) which showed no acute cardiac pathology and found him again to be in NSR. While here his VS have been stable (though BP slightly elevated, patient states he monitors at home and he is normally 140s/80s systolic) and so no changes were made with his chronic medications. Procedures Performed: none Results and Findings: Lab Pending Results 06/16/18 11:40: WBC 6.4, RBC 4.01 L, Hgb 12.4 L, Hct 37.6 L, MCV 93.8, MCH 30.9, MCHC 33.0, RDW 13.0, Plt Count 175, MPV 9.8, Immature Gran % (Auto) 0.50 H, Immature Gran # (Auto) 0.03, Neutrophils % 57.7, Lymphocytes % 23.9, Monocytes % 11.7 H, Eosinophils % 5.1 H, Basophils % 1.1 H, Nucleated RBC % 0.0, Neutrophils # 3.7, Lymphocytes # 1.53, Monocytes # 0.8, Eosinophils # 0.3, Absolute Basophils 0.1 06/16/18 11:40: PT 10.0, INR (Anticoag Therapy) 1.00, PTT (O'Brien) 24.0 06/16/18 11:40: Sodium 138, Plasma Sodium 138, Potassium 4.2, Chloride 101, Carbon Dioxide 31.8, Anion Gap 9.4, BUN 12, Creatinine 1.09, Est GFR (Non-Af Amer) 71, BUN/Creatinine Ratio 11.0, Random Glucose 90, Calcium 9.3, Calcium Adj for Albumin 9.4, Total Bilirubin 0.4, AST 23, ALT 20, Alkaline Phosphatase 83, Troponin I Less than 0.017, B-Natriuretic Peptide 267, Total Protein 7.2, Albumin 3.5 06/16/18 16:55: Troponin I 0.018 06/16/18 20:30: Troponin I Less than 0.017 Discharge Location: Home Disposition: Home self-care Condition: Fair Discharge Activity: Activity as tolerated Discharge Diet: Low fat/chol Referrals: Hardy Caro MD [Primary Care Provider] - One Week (next 3-7 days) Problem Oriented Discharge Instructions to Patient/Family: Atrial Fibrillation, [id number] Additional Patient Instructions (free text): Follow up with Dr. Mccollum on June 25 at 10. Follow up with Dr. Stewart on June 21 at 3:15. Prescriptions (Any new or edited meds): Diltiazem HCl [Cardizem] 30 mg PO TID #90 tablet Diltiazem HCl [Cardizem] 30 mg PO Q8H #90 tablet Complete Home Medications List: Complete Home Medication List: Budesonide [Pulmicort Respules] 2 ml INHALATION BID 09/23/16 Cyanocobalamin [Vitamin B-12] 1,000 mcg IM Q30D 09/23/16 Cyclobenzaprine HCl 5 - 10 mg PO TID 09/23/16 Escitalopram Oxalate [Lexapro] 20 mg PO DAILY 09/23/16 Ipratropium [place] 0.2 mg INHALATION QID 09/23/16 Meclizine HCl [Antivert] 25 mg PO TID PRN 09/23/16 Nitroglycerin [Nitrostat] 1 tab SUBLINGUAL Q5M 09/23/16 Pantoprazole Sodium 40 mg PO BID 09/23/16 Tamsulosin HCl [Flomax] 0.4 mg PO HS 09/23/16 Tramadol HCl [Rybix Odt] 50 mg PO BID PRN 09/23/16 clonazePAM [Klonopin] 0.5 mg PO BID 09/23/16 Metoprolol Succinate [Toprol Xl] 50 mg PO DAILY 09/24/16 Albuterol Sulfate [Albuterol Sulfate 2.5 MG/0.5ML] 2.5 mg INHALATION Q2H PRN #0 vial.neb 10/03/16 arformoterol 15 mcg/2 mL solution for nebulization 2 ml IH BID 06/11/18 gabapentin 300 mg capsule 300 mg PO DAILY 06/11/18 promethazine 25 mg tablet 25 mg PO Q6H PRN 06/11/18 Glycopyrrolate/Formoterol Fum [Bevespi Aerosphere Inhaler] 2 puff IH BID 06/16/18 Diltiazem HCl [Cardizem] 30 mg PO Q8H #90 tablet 06/17/18 Diltiazem HCl [Cardizem] 30 mg PO TID #90 tablet 06/17/18
[2018-06-17 13:12] VITALS: BP 141/82
== END 2018-06-17 12:55 | disposition home or self-care (01) ==
LOC: MS 11:16 → ER 11:16 → MS 13:00
PROVIDERS: ADMIT Family Medicine; ATTEND Family Medicine
DX: R00.0 Tachycardia, unspecified
CPT/HCPCS: 36415; 71020; 71046; 80053; 83519; 83880; 84484; 85025; 85610; 85730; 93005; 94640; 96361; 96374; 99284; G0378

== ENCOUNTER 2018-09-18 11:10 | Inpatient (IN) ==
--- NOTE | 2018-09-18 11:56 | ERNOTE ---
Dyspnea - General Presenting Symptoms: shortness of breath, wheezing Time Seen by Provider: 09/18/18 11:35 Source: patient Exam Limitations: no limitations - Immun/Allergies/Home Medications Immunizations: IMMUNIZATION HX Immunizations Up to Date Yes Immunizations Comment havnt had shingles vacine History of Influenza Vaccine Yes Hx Pneumococcal Vaccination Yes Allergies/Adverse Reactions: Allergies prednisone Allergy (Mild, Verified 08/31/18 13:06) Hives simvastatin Allergy (Unknown, Verified 08/31/18 13:06) Unknown Iodinated Contrast- Oral and IV Dye [Iodinated Contrast Media - IV Dye] Adverse Reaction (Severe, Verified 08/31/18 13:06) "coded" cephalexin Adverse Reaction (Intermediate, Verified 08/31/18 13:06) Nausea codeine Adverse Reaction (Mild, Verified 08/31/18 13:06) nausea Home Medications: HOME MEDICATIONS Budesonide [Pulmicort Respules] 2 ml INHALATION BID 09/23/16 [Last Taken 06/16/18] Cyanocobalamin [Vitamin B-12] 1,000 mcg IM Q30D 09/23/16 [Last Taken 06/16/18] Ipratropium [place] 0.2 mg INHALATION QID 09/23/16 [Last Taken 06/16/18] Meclizine HCl [Antivert] 25 mg PO TID PRN 09/23/16 [Last Taken Unknown] Nitroglycerin [Nitrostat] 1 tab SUBLINGUAL Q5M 09/23/16 [Last Taken Unknown] Pantoprazole Sodium 40 mg PO BID 09/23/16 [Last Taken 06/16/18] Tramadol HCl [Rybix Odt] 50 mg PO BID PRN 09/23/16 [Last Taken Unknown] Albuterol Sulfate [Albuterol Sulfate 2.5 MG/0.5ML] 2.5 mg INHALATION Q2H PRN #0 vial.neb 10/03/16 [Last Taken 06/16/18] arformoterol 15 mcg/2 mL solution for nebulization 2 ml IH BID 06/11/18 [Last Taken 06/16/18] gabapentin 300 mg capsule 300 mg PO DAILY 06/11/18 [Last Taken 06/16/18] cyclobenzaprine 10 mg tablet 5 - 10 mg PO TID #60 tab 06/28/18 [Last Taken Unknown] trazodone 100 mg tablet 200 mg PO HS PRN #60 tab 06/28/18 [Last Taken Unknown] metoprolol succinate ER 50 mg tablet,extended release 24 hr 100 mg PO DAILY tab 07/26/18 [Last Taken Unknown] amiodarone 200 mg tablet 200 mg PO DAILY #60 tab 07/28/18 [Last Taken Unknown] clonazepam 0.5 mg tablet 0.5 mg PO BID #60 tab 08/12/18 [Last Taken Unknown] promethazine 25 mg tablet 25 mg PO DAILY #30 tab 08/27/18 [Last Taken Unknown] diltiazem 30 mg tablet 30 mg PO TID #90 tab 09/02/18 [Last Taken Unknown] tamsulosin 0.4 mg capsule 0.4 mg PO HS #30 cap 09/02/18 [Last Taken Unknown] ropinirole 0.5 mg tablet 0.5 mg PO HS #90 tab 09/07/18 [Last Taken Unknown] rosuvastatin 5 mg tablet 5 mg PO DAILY #90 tab 09/07/18 [Last Taken Unknown] Amox Tr/Potassium Clavulanate [Augmentin 500-125 Tablet] 500 mg PO DAILY 09/18/18 [Last Taken Unknown] Tiotropium [place] [Spiriva] 1 cap INHALATION DAILY 09/18/18 [Last Taken Unknown] Warfarin Sodium 5 mg PO DAILY 09/18/18 [Last Taken Unknown] predniSONE [Prednisone] 40 mg PO DAILY 09/18/18 [Last Taken Unknown] - History of Present Illness Narrative: Patient has a long-standing history of severe COPD, and he believes likely only 20% pulmonary function left. He states that for the last 8 days he has been on antibiotics and steroids and is not substantially better and is having difficulty even getting around the house much. 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 Initiating event: Reports: none Frequency of episodes: Reports: frequent episodes, chronic episodes Associated Symptoms-Dyspnea: Reports: cough, wheezing Prior Treatment: Reports: recently seen, treated by physician, currently on antibiotics Review of Systems - Review of Systems Constitutional: Present: See HPI EYE: Present: no symptoms reported ENT: Present: no symptoms reported Respiratory: Present: See HPI Cardiology: Present: no symptoms reported Gastrointestinal/Abdominal: Present: no symptoms reported Genitourinary: Present: no symptoms reported Musculoskeletal: Present: no symptoms reported Skin: Present: no symptoms reported Neurological: Present: no symptoms reported Endocrine: Present: no symptoms reported Hematologic/Lymphatic: Present: no symptoms reported Psych: Present: no symptoms reported Medical History (Last Reviewed 09/18/18 @ 12:00 by Carolina Mora RN) Neck fracture (Resolved) Onset Date: Unknown Vitamin B 12 deficiency (Acute) Onset Date: Unknown Depression (Chronic) Onset Date: Unknown COPD (chronic obstructive pulmonary disease) (Chronic) Onset Date: Unknown CAD (coronary artery disease) (Chronic) Onset Date: Unknown BPH (benign prostatic hyperplasia) (Chronic) Onset Date: Unknown Asthma (Chronic) Onset Date: Unknown Anxiety (Chronic) Onset Date: Unknown Anorexia (Acute) Onset Date: ~10/10/16 AAA (abdominal aortic aneurysm) (Chronic) Onset Date: ~2015 Esophageal cancer Surgical History: Surgical History (Last Reviewed 09/18/18 @ 12:00 by Carolina Mora RN) History of arthroscopy of shoulder Onset Date: ~2014 History of colonoscopy Onset Date: ~2015 History of lobectomy of lung Onset Date: ~1979 History of penile implant Onset Date: Unknown Family History: Family History (Last Reviewed 09/18/18 @ 12:00 by Carolina Mora RN) Mother Cancer Father CAD (coronary artery disease) Social History: Preferred Language [place]ian Smoking Status Former smoker Have you smoked in the past 12 No months Do you dip or chew tobacco No Abuse History No History of abuse Psych History No pertinent hx Alcohol Use none Drug Use none (Last Updated 09/12/18 @ 17:49 by Hardy Caro MD) No Social History Section defined Physical Exam - Physical Exam General Appearance: Present: wd/wn, alert, moderate distress, severe distress Head Exam: Present: normal inspection, no evidence of injury Eye Exam: Normal inspection: bilateral, PERRL: bilateral Ears, Nose, Throat: Present: normal ENT inspection, H, normal pharynx Neck: Present: normal inspection, nontender Respiratory: Present: no accessory muscle use, chest nontender, rales, wheezing, other - Fine coarse breath sounds Cardiovascular/Chest: Present: regular rate, rhythm, no murmur, normal peripheral pulses Gastrointestinal/Abdominal: Present: normal bowel sounds, nontender, nondistended, soft, no organomegaly Rectal Exam: Present: deferred Back Exam: Present: normal inspection, normal range of motion Extremity Exam: Present: normal inspection, non-tender, no edema, normal range of motion Neurological Exam: Present: alert, oriented, normal mood/affect Skin Exam: Present: normal color, warm/dry Lymphatic Exam: Present: no adenopathy Progress - Results and Orders Patient's Lab Results:: I have reviewed the patient's lab results. - Vital Signs Patient's Vital Signs:: I have reviewed the patient's vital signs. Vital Signs: Vital Signs 09/18/18 11:22 09/18/18 11:43 09/18/18 11:51 Temperature 36.7 C Pulse Rate 65 66 64 Respiratory Rate 20 20 Blood Pressure 106/62 116/79 O2 Sat by Pulse Oximetry 94 94 - EKG EKG #1 EKG: NSR - X-Ray X-Ray #1 X-Ray: chest Interpretation: Reviewed by me - Progress/Reassessment Chief Complaint: Dyspnea Plan - Plan Plan: Patient is failed outpatient treatment and is getting progressively worse over the last 8 days. As the patient has only very limited lung capacity and now has a left lower lobe pneumonia pleurisy I feel the patient would benefit from being admitted to the hospital at least overnight so we can get a little bit more aggressive treatment going on him. I discussed the case with Dr. Willson and he agrees to admit the patient for IV antibiotics and acute pulmonary toilet Departure Clinical Impression: Supplemental oxygen dependent COPD (chronic obstructive pulmonary disease) Qualifiers: COPD type: COPD with acute exacerbation Qualified Code(s): J44.1 - Chronic obstructive pulmonary disease with (acute) exacerbation Pneumonia Qualifiers: Pneumonia type: due to unspecified organism Laterality: left Lung location: lower lobe of lung Qualified Code(s): J18.1 - Lobar pneumonia, unspecified organism - Departure Disposition: Still a patient Condition: Fair
[2018-09-18 12:04] LABS: Hematocrit 38.6 % (42.0-52.0); Hemoglobin 12.3 gm/dL (13.5-18.0); Mean Cell Volume 95.3 fl (78-100); Mean Corpuscular Hemoglobin 30.4 pg (27-31); Mean Corpuscular Hgb Conc 31.9 g/dl (32-36); Neutrophil # 9.6 K/mm3 (1.3-6.0); Neutrophil % 85.2 % (42-75.0); Platelet Count 204 K/mm3 (150-450); Red Blood Count 4.05 M/mm3 (4.7-6.0); Red Cell Distribution Width 12.7 % (11.5-14.0); White Blood Count 11.2 K/mm3 (4.0-10.5)
[2018-09-18 12:21] LABS: Prothrombin Time (Patient) 51.6 Seconds (9.0-11.0)
[2018-09-18 12:23] LABS: ALT 14 U/L (19-67); AST 12 U/L (0-48); Albumin * 3.5 gm/dl (3.4-5.0); Alkaline Phosphatase * 57 U/L (50-170); Anion Gap 8.1 mmol/L (6.8-13.8); BUN/Creatinine Ratio 13.1 (9.0-21.6); Bilirubin, Total 0.2 mg/dL (0.0-1.1); Blood Urea Nitrogen 14 mg/dL (6-23); Calcium * 8.9 mg/dL (7.9-10.9); Carbon Dioxide 35.6 mmol/L (24-32.6); Chloride 103 mmol/L (97-106); Glucose * 112 mg/dL (70-110); Magnesium 1.9 mg/dL (1.2-2.8); Potassium 4.7 mmol/L (3.4-4.6); Sodium 142 mmol/L (132-142); Total Protein 6.9 gm/dL (6.2-8.2)
[2018-09-18 12:24] LABS: Troponin I Less than 0.017 ng/mL (0.00-0.10)
[2018-09-18 12:25] LABS: INR 5.08 INR (0.90-1.10)
[2018-09-18] MEDS ORDERED: ALBUTEROL SULFATE 2.5 MG/0.5 ML VIAL.NEB IH ONE (13:12)
[2018-09-18] MEDS ORDERED: cefTRIAXone SODIUM 1,000 MG/100 ML BAG IV ONE (13:12)
[2018-09-18] MEDS ORDERED: AZITHROMYCIN 500 MG in DEXTROSE 5 % IN WATER 250 ML IV ONE ×2 (13:30)
--- NOTE | 2018-09-18 21:53 | HP ---
Chief Complaint - Chief Complaint Date of Service: 09/18/18 Time of Service: 21:52 Chief Complaint: cough, SOB, supratherapeutic INR History of Present Illness: Patient presented to the ER with shortness of breath and wheezing, states that this started roughly 2 weeks ago. He has been on Augmentin and prednisone for pneumonia, started on this by his PCP. Also he has history of COPD, states he has lung disease but is unsure of what it ishe states he has had part of his left lung removed unsure as to why. He came into the ER because his ability to get up and walk has worsened over the last week. He normally uses 2 L of oxygen at home but this is not maintaining sats greater than 88% at this time. X-ray in the ER showed him to have chronic consolidation of the right lower lung field but denies infiltrate or vascular congestion. Labs drawn in the ER showed him to have a white blood cell count of 11.2 with a left shift of 85.2but he has been on prednisone for the last 8 days which likely explains this. He denies fevers or chills. He was started on Rocephin and azithromycin in the ER. Blood cultures are pending Also of note his INR was found to be 5.08, he takes warfarin for A. fib with RVR. This is also likely elevated due to the antibiotics that he has been on. Medical History (Last Updated 09/18/18 @ 14:55 by Anita Berger RN) Neck fracture (Resolved) Onset Date: Unknown Vitamin B 12 deficiency (Acute) Onset Date: Unknown Depression (Chronic) Onset Date: Unknown COPD (chronic obstructive pulmonary disease) (Chronic) Onset Date: Unknown CAD (coronary artery disease) (Chronic) Onset Date: Unknown BPH (benign prostatic hyperplasia) (Chronic) Onset Date: Unknown Asthma (Chronic) Onset Date: Unknown Anxiety (Chronic) Onset Date: Unknown Anorexia (Acute) Onset Date: ~10/10/16 AAA (abdominal aortic aneurysm) (Chronic) Onset Date: ~2015 Cardiac disease Esophageal cancer Surgical History: Surgical History (Last Updated 09/18/18 @ 14:55 by Anita Berger RN) History of total left knee replacement (TKR) History of arthroscopy of shoulder Onset Date: ~2014 History of colonoscopy Onset Date: ~2015 History of lobectomy of lung Onset Date: ~1980 History of penile implant Onset Date: Unknown Family History: Family History (Last Reviewed 09/18/18 @ 14:55 by Anita Berger RN) Mother Cancer Father CAD (coronary artery disease) Social History: Patient Lives/Resources With Spouse Utilized Occupation Retired Preferred Language Turkish Do you have any lutheran or Yes: Sabianist cultural preference? Smoking Status Former smoker Have you smoked in the past 12 No months Do you dip or chew tobacco No Abuse History No History of abuse Psych History No pertinent hx Alcohol Use none Drug Use none (Last Updated 09/12/18 @ 17:49 by Hardy Caro MD) No Social History Section defined Review Of Systems (GEN) - Review of Systems Generalized/Overall Review: Absent: Chills, Fever EENTM: Present: Throat Pain - From cough. Absent: Ear Pain, Nose Congestion Respiratory: Present: Cough, Shortness of Breath, Wheezing Cardiac: Present: Chest Pain - Chronic chest pain secondary to multiple surgeries. Absent: Edema, Palpitations Abdominal: Absent: Nausea, Vomiting Genitourinary: Present: No Symptoms Reported Musculoskeletal: Present: Other - Chest pain, chronic Neurological: Present: No Symptoms Reported Skin: Present: No Symptoms Reported Immunizations: IMMUNIZATION HX Immunizations Up to Date Yes Immunizations Comment havnt had shingles vacine History of Influenza Vaccine Yes Hx Pneumococcal Vaccination Yes Allergies/Adverse Reactions: Allergies Allergy/AdvReac Type Severity Reaction Status Date / Time prednisone Allergy Mild Hives Verified 08/31/18 13:06 simvastatin Allergy Unknown Unknown Verified 08/31/18 13:06 Iodinated Contrast- Oral and AdvReac Severe "coded" Verified 08/31/18 13:06 IV Dye [Iodinated Contrast Media - IV Dye] cephalexin AdvReac Intermediate Nausea Verified 08/31/18 13:06 codeine AdvReac Mild nausea Verified 08/31/18 13:06 Home Medications: HOME MEDICATIONS Budesonide [Pulmicort Respules] 2 ml INHALATION BID 09/23/16 [Last Taken 06/16/18] Cyanocobalamin [Vitamin B-12] 1,000 mcg IM Q30D 09/23/16 [Last Taken 06/16/18] Ipratropium Roselle 0.2 mg INHALATION QID 09/23/16 [Last Taken 06/16/18] Meclizine HCl [Antivert] 25 mg PO TID PRN 09/23/16 [Last Taken Unknown] Nitroglycerin [Nitrostat] 1 tab SUBLINGUAL Q5M 09/23/16 [Last Taken Unknown] Pantoprazole Sodium 40 mg PO BID 09/23/16 [Last Taken 06/16/18] Tramadol HCl [Rybix Odt] 50 mg PO BID PRN 09/23/16 [Last Taken Unknown] Albuterol Sulfate [Albuterol Sulfate 2.5 MG/0.5ML] 2.5 mg INHALATION Q2H PRN #0 vial.neb 10/03/16 [Last Taken 06/16/18] arformoterol 15 mcg/2 mL solution for nebulization 2 ml IH BID 06/11/18 [Last Taken 06/16/18] gabapentin 300 mg capsule 300 mg PO DAILY 06/11/18 [Last Taken 06/16/18] cyclobenzaprine 10 mg tablet 5 - 10 mg PO TID #60 tab 06/28/18 [Last Taken Unknown] trazodone 100 mg tablet 200 mg PO HS PRN #60 tab 06/28/18 [Last Taken Unknown] metoprolol succinate ER 50 mg tablet,extended release 24 hr 100 mg PO DAILY tab 07/26/18 [Last Taken Unknown] amiodarone 200 mg tablet 200 mg PO DAILY #60 tab 07/28/18 [Last Taken Unknown] clonazepam 0.5 mg tablet 0.5 mg PO BID #60 tab 08/12/18 [Last Taken Unknown] promethazine 25 mg tablet 25 mg PO DAILY #30 tab 08/27/18 [Last Taken Unknown] diltiazem 30 mg tablet 30 mg PO TID #90 tab 09/02/18 [Last Taken Unknown] tamsulosin 0.4 mg capsule 0.4 mg PO HS #30 cap 09/02/18 [Last Taken Unknown] ropinirole 0.5 mg tablet 0.5 mg PO HS #90 tab 09/07/18 [Last Taken Unknown] rosuvastatin 5 mg tablet 5 mg PO DAILY #90 tab 09/07/18 [Last Taken Unknown] Amox Tr/Potassium Clavulanate [Augmentin 500-125 Tablet] 500 mg PO DAILY 09/03 01/19 [Last Taken Unknown] Tiotropium Roselle [Spiriva] 1 cap INHALATION DAILY 09/18/18 [Last Taken Unknown] Warfarin Sodium 5 mg PO DAILY 09/18/18 [Last Taken Unknown] predniSONE [Prednisone] 40 mg PO DAILY 09/18/18 [Last Taken Unknown] Exam - Exam Vital Signs: Vital Signs - Last Taken Temp 36.5 C 09/18/18 18:20 Pulse 69 09/18/18 18:20 Resp 22 H 09/18/18 18:20 BP 137/70 09/18/18 18:20 Pulse Ox 96 09/18/18 18:20 Constitutional: Present: Alert, Oriented x3, Cooperative, Mild distress - Shortness of breath, Elderly ENT Exam: Present: hearing grossly normal, pharyngeal erythema - Minimal Neck: Present: full range of motion, supple, normal inspection Respiratory: Present: no respiratory distress, wheezing - Bilateral lower lung arellano, left side breath sounds higher than right. Absent: crackles Cardiovascular/Chest: Present: normal peripheral pulses, irregularly irregular Abdomen: Present: Normal bowel sounds, soft, nontender /Rectal: Present: Exam deferred Skin Exam: Present: normal color, warm/dry Appearance: Present: appropriate appearance, appropriate insight Eye contact: Present: cooperative, good eye contact Thoughts: Present: normal thought pattern, normal mood /affect Diagnostic Studies: Abnormal Lab Results 09/18/18 09/18/18 09/18/18 Range/Units 11:58 11:58 11:58 WBC 11.2 H (4.0-10.5) K/mm3 RBC 4.05 L (4.7-6.0) M/mm3 Hgb 12.3 L (13.5-18.0) gm/dL Hct 38.6 L (42.0-52.0) % MCHC 31.9 L (32-36) g/dl Immature Gran % (Auto) 0.60 H (0.001-0.429) % Immature Gran # (Auto) 0.07 H (0.000-0.0310) K/mm3 Neutrophils % 85.2 H (42-75.0) % Lymphocytes % 8.3 L (20-51) % Neutrophils # 9.6 H (1.3-6.0) K/mm3 Lymphocytes # 0.93 L (1.5-3.5) k/mm3 PT 51.6 H (9.0-11.0) Seconds INR (Anticoag Therapy) 5.08 H* (0.90-1.10) INR Total CO2 (19.0-24.0) mmol/L Potassium 4.7 H (3.4-4.6) mmol/L Carbon Dioxide 35.6 H (24-32.6) mmol/L Random Glucose 112 H (70-110) mg/dL ALT 14 L (19-67) U/L 09/18/18 Range/Units 12:40 WBC (4.0-10.5) K/mm3 RBC (4.7-6.0) M/mm3 Hgb (13.5-18.0) gm/dL Hct (42.0-52.0) % MCHC (32-36) g/dl Immature Gran % (Auto) (0.001-0.429) % Immature Gran # (Auto) (0.000-0.0310) K/mm3 Neutrophils % (42-75.0) % Lymphocytes % (20-51) % Neutrophils # (1.3-6.0) K/mm3 Lymphocytes # (1.5-3.5) k/mm3 PT (9.0-11.0) Seconds INR (Anticoag Therapy) (0.90-1.10) INR Total CO2 25.2 H (19.0-24.0) mmol/L Potassium (3.4-4.6) mmol/L Carbon Dioxide (24-32.6) mmol/L Random Glucose (70-110) mg/dL ALT (19-67) U/L Laboratory Results WBC 11.2 K/mm3 (4.0-10.5) H 09/18/18 11:58 RBC 4.05 M/mm3 (4.7-6.0) L 09/18/18 11:58 Hgb 12.3 gm/dL (13.5-18.0) L 09/18/18 11:58 Hct 38.6 % (42.0-52.0) L 09/18/18 11:58 MCV 95.3 fl (78-100) 09/18/18 11:58 MCH 30.4 pg (27-31) 09/18/18 11:58 MCHC 31.9 g/dl (32-36) L 09/18/18 11:58 RDW 12.7 % (11.5-14.0) 09/18/18 11:58 Plt Count 204 K/mm3 (150-450) 09/18/18 11:58 MPV 10.0 fl (8-11.3) 09/18/18 11:58 Immature Gran % (Auto) 0.60 % (0.001-0.429) H 09/18/18 11:58 Immature Gran # (Auto) 0.07 K/mm3 (0.000-0.0310) H 09/18/18 11:58 Neutrophils % 85.2 % (42-75.0) H 09/18/18 11:58 Lymphocytes % 8.3 % (20-51) L 09/18/18 11:58 Monocytes % 5.1 % (0.0-9) 09/18/18 11:58 Eosinophils % 0.5 % (0.0-3.0) 09/18/18 11:58 Basophils % 0.3 % (0.0-1.0) 09/18/18 11:58 Nucleated RBC % 0.0 k/mm3 (0-1) 09/18/18 11:58 Neutrophils # 9.6 K/mm3 (1.3-6.0) H 09/18/18 11:58 Lymphocytes # 0.93 k/mm3 (1.5-3.5) L 09/18/18 11:58 Monocytes # 0.6 k/mm3 (0.0-1.0) 09/18/18 11:58 Eosinophils # 0.1 k/mm3 (0.0-0.7) 09/18/18 11:58 Absolute Basophils 0.0 k/mm3 (0.0-0.1) 09/18/18 11:58 PT 51.6 Seconds (9.0-11.0) H 09/18/18 11:58 INR (Anticoag Therapy) 5.08 INR (0.90-1.10) H* 09/18/18 11:58 pCO2 41.6 mmHg (35.0-48.0) 09/18/18 12:40 pO2 86.2 mmHg (83.0-108.0) 09/18/18 12:40 HCO3 23.9 mmol/L (21.0-28.0) 09/18/18 12:40 Total CO2 25.2 mmol/L (19.0-24.0) H 09/18/18 12:40 Base Excess -1.2 mmol/L (-2.0-3.0) 09/18/18 12:40 ABG pH 7.38 (7.35-7.45) 09/18/18 12:40 ABG O2 Sat (Measured) 96.4 % (94.0-98.0) 09/18/18 12:40 Sodium 142 mmol/L (132-142) 09/18/18 11:58 Plasma Sodium 142 mmol/L (130-142) 09/18/18 11:58 Potassium 4.7 mmol/L (3.4-4.6) H 09/18/18 11:58 Chloride 103 mmol/L (97-106) 09/18/18 11:58 Carbon Dioxide 35.6 mmol/L (24-32.6) H 09/18/18 11:58 Anion Gap 8.1 mmol/L (6.8-13.8) 09/18/18 11:58 BUN 14 mg/dL (6-23) 09/18/18 11:58 Creatinine 1.07 mg/dL (0.4-1.4) 09/18/18 11:58 Est GFR (Non-Af Amer) 72 mL/min (60-130) 09/18/18 11:58 BUN/Creatinine Ratio 13.1 (9.0-21.6) 09/18/18 11:58 Random Glucose 112 mg/dL (70-110) H 09/18/18 11:58 Lactic Acid, Venous 0.8 mmol/L (0.4-2.0) 09/18/18 11:58 Calcium 8.9 mg/dL (7.9-10.9) 09/18/18 11:58 Calcium Adj for Albumin 9.0 mg/dL (8.4-10.2) 09/18/18 11:58 Magnesium 1.9 mg/dL (1.2-2.8) 09/18/18 11:58 Total Bilirubin 0.2 mg/dL (0.0-1.1) 09/18/18 11:58 AST 12 U/L (0-48) 09/18/18 11:58 ALT 14 U/L (19-67) L 09/18/18 11:58 Alkaline Phosphatase 57 U/L (50-170) 09/18/18 11:58 Troponin I Less than 0.017 ng/mL (0.00-0.10) 09/18/18 11:58 B-Natriuretic Peptide 340 pg/mL (5-350) 09/18/18 11:58 Total Protein 6.9 gm/dL (6.2-8.2) 09/18/18 11:58 Albumin 3.5 gm/dl (3.4-5.0) 09/18/18 11:58 Assessment/Plan - Narrative Narrative: We will continue Rocephin and azithromycin for his pneumonia. We will stop the Augmentin, will stop the prednisone. We will administer supplemental oxygen as needed to maintain sats of greater than 88% incentive spirometry. Discussed with the patient that I think likely his deconditioning has caused a lot of his distress more so than a worsening pulmonary infection. Blood cultures pending We will hold his warfarin as his INR is supratherapeutic at 5.08. Will repeat INR is in the morning. Will discuss how he monitors this as he will need to keep a closer eye on his INR while on the antibiotics that he is on. Restarted his home breathing medications as well as other chronic medicines for his hypertension, anxiety, BPH. Patient started on a regular diet. No DVT prophylaxis is needed at this time as he is supratherapeutic on his warfarin. Will order PT and OT to evaluate and help with his deconditioning. Nurses will call with any questions or concerns. - Assessment/Plan (1) Pneumonia Problem: Acute Qualifiers: Pneumonia type: due to unspecified organism Laterality: left Lung location: lower lobe of lung Qualified Code(s): J18.1 - Lobar pneumonia, unspecified organism (2) COPD (chronic obstructive pulmonary disease) Problem: Chronic Qualifiers: COPD type: emphysema Emphysema type: unspecified Qualified Code(s): J43.9 - Emphysema, unspecified (3) Supratherapeutic INR Problem: Acute (4) Hypertension Problem: Chronic Qualifiers: Hypertension type: essential hypertension Qualified Code(s): I10 - Essential (primary) hypertension (5) Supplemental oxygen dependent Problem: Chronic (6) Chest pain in adult Problem: Acute (7) Atrial fibrillation and flutter Problem: Chronic
[2018-09-18] MEDS: ALBUTEROL SULFATE 2.5 MG/0.5 ML VIAL.NEB IH PRN (21:59)
[2018-09-18] MEDS: BUDESONIDE 0.5 MG/2 ML VIAL.NEB IH SCH (21:59)
[2018-09-18] MEDS: FORMOTEROL FUMARATE 20 MCG/2 ML VIAL IH SCH (21:59)
[2018-09-18] MEDS ORDERED: IPRATROPIUM BROMIDE 0.5 MG/2.5 ML VIAL.NEB IH SCH (22:00)
[2018-09-18] MEDS: IPRATROPIUM BROMIDE 0.5 MG/2.5 ML VIAL.NEB IH SCH (22:22)
[2018-09-18] MEDS: DILTIAZEM HCL 30 MG TABLET PO SCH (23:02)
[2018-09-18] MEDS: rOPINIRole HCL 0.5 MG TABLET PO SCH (23:02)
[2018-09-18] MEDS: PANTOPRAZOLE SODIUM 40 MG TABLET.EC PO SCH (23:02)
[2018-09-19] MEDS: DILTIAZEM HCL 30 MG TABLET PO SCH ×3 (05:34→22:06)
[2018-09-19] MEDS ORDERED: traMADol HCL 50 MG TABLET ONE (05:56)
[2018-09-19] MEDS: traMADol HCL 50 MG TABLET PO PRN (05:58)
[2018-09-19] MEDS: FORMOTEROL FUMARATE 20 MCG/2 ML VIAL IH SCH ×2 (06:00→18:04)
[2018-09-19] MEDS: BUDESONIDE 0.5 MG/2 ML VIAL.NEB IH SCH ×2 (06:00→18:03)
[2018-09-19] MEDS: ALBUTEROL SULFATE 2.5 MG/0.5 ML VIAL.NEB IH PRN ×4 (06:00→18:04)
[2018-09-19] MEDS: IPRATROPIUM BROMIDE 0.5 MG/2.5 ML VIAL.NEB IH SCH ×4 (06:01→18:04)
[2018-09-19 06:30] LABS: Hematocrit 38.2 % (42.0-52.0); Hemoglobin 12.1 gm/dL (13.5-18.0); Mean Cell Volume 95.5 fl (78-100); Mean Corpuscular Hemoglobin 30.3 pg (27-31); Mean Corpuscular Hgb Conc 31.7 g/dl (32-36); Mean Platelet Volume 10.4 fl (8-11.3); Neutrophil # 8.9 K/mm3 (1.3-6.0); Neutrophil % 72.7 % (42-75.0); Platelet Count 187 K/mm3 (150-450); Red Cell Distribution Width 12.6 % (11.5-14.0); White Blood Count 12.2 K/mm3 (4.0-10.5)
[2018-09-19] MEDS: PANTOPRAZOLE SODIUM 40 MG TABLET.EC PO SCH ×2 (06:36→16:01)
[2018-09-19 06:59] LABS: Prothrombin Time (Patient) 53.4 Seconds (9.0-11.0)
[2018-09-19 07:05] LABS: INR 5.25 INR (0.90-1.10)
[2018-09-19] MEDS: GABAPENTIN 300 MG CAPSULE PO SCH (08:14)
[2018-09-19] MEDS: METOPROLOL SUCCINATE 100 MG TABLET.SA PO SCH (08:14)
[2018-09-19] MEDS: clonazePAM 0.5 MG TABLET PO SCH ×2 (08:14→20:34)
[2018-09-19] MEDS: AMIODARONE HCL 200 MG TABLET PO SCH (08:14)
[2018-09-19] MEDS: AZITHROMYCIN 250 MG TABLET PO SCH (08:15)
[2018-09-19] MEDS ORDERED: METOPROLOL SUCCINATE 50 MG TABLET.SA PO SCH (09:00)
[2018-09-19] MEDS ORDERED: ROSUVASTATIN CALCIUM 10 MG TABLET PO SCH (09:00)
--- NOTE | 2018-09-19 18:04 | PN ---
Subjective - Date and Time Seen Date: 09/19/18 Time: 17:52 Subjective Narrative: Patient did well overnight, his breathing has improved as well as O2 saturations. His vital signs been stable otherwise. He still struggles significantly with air hunger when he gets up to move. PT and OT have not been by to evaluate him yet. Objective - Review of Systems Generalized/Overall Review: Reports: Weakness. Denies: Chills, Fever Respiratory: Reports: Cough, Shortness of Breath. Denies: Wheezing Abdominal: Denies: Nausea, Vomiting Genitourinary Symptoms: Reports: No Symptoms Reported Musculoskeletal Complaints: Reports: Other - Chest pain, chronic Neurological: Reports: No Symptoms Reported Skin: Reports: No Symptoms Reported - Vitals Vitals: Last Vital Signs Temp 36.5 C 09/19/18 10:28 Pulse 63 09/19/18 16:00 Resp 20 09/19/18 16:00 BP 113/58 09/19/18 13:16 Pulse Ox 97 09/19/18 16:00 - Abnormal Lab Findings Abnormal Lab Findings: Abnormal Lab Results 09/19/18 09/19/18 Range/Units 06:30 06:35 WBC 12.2 H (4.0-10.5) K/mm3 RBC 4.00 L (4.7-6.0) M/mm3 Hgb 12.1 L (13.5-18.0) gm/dL Hct 38.2 L (42.0-52.0) % MCHC 31.7 L (32-36) g/dl Immature Gran # (Auto) 0.05 H (0.000-0.0310) K/mm3 Lymphocytes % 19.6 L (20-51) % Neutrophils # 8.9 H (1.3-6.0) K/mm3 PT 53.4 H (9.0-11.0) Seconds INR (Anticoag Therapy) 5.25 H* (0.90-1.10) INR - Exam Constitutional: Present: Alert, Oriented x3, Cooperative ENT Exam: Present: hearing grossly normal, pharynx normal Neck: Present: non-tender, supple Respiratory: Present: decreased breath sounds - Improved from yesterday, No wheezing Cardiovascular/Chest: Present: normal peripheral pulses, irregularly irregular Abdomen: Present: Normal bowel sounds, soft, nontender /Rectal: Present: Exam deferred Skin Exam: Present: normal color, warm/dry Appearance: Present: appropriate appearance, appropriate insight Eye contact: Present: cooperative, good eye contact Thoughts: Present: normal thought pattern, normal mood /affect Assessment/Plan Plan Narrative: We will continue Rocephin and azithromycin for his pneumonia, this is improving and he will likely need only 2-3 more days of this treatment. Augmentin and prednisone stopped. Continue supplemental oxygen as needed to maintain sats of greater than 88%, continue incentive spirometry. Discussed with the patient that I think likely his deconditioning has caused a lot of his distress more so than a worsening pulmonary infection. Blood cultures negative up-to-date. Continue to hold his warfarin as his INR is supratherapeutic at 5.25. Will r epeat INR is in the morning. Will discuss how he monitors this as he will need to keep a closer eye on his INR while on the antibiotics that he is on at discharge. Restarted his home breathing medications as well as other chronic medicines for his hypertension, anxiety, BPH. Patient started on a regular diet. No DVT prophylaxis is needed at this time as he is supratherapeutic on his warfarin. Will order PT and OT to evaluate and help with his deconditioning. Nurses will call with any questions or concerns. - Problems/Diagnosis (1) Pneumonia Problem: Acute Qualifiers: Pneumonia type: due to unspecified organism Laterality: left Lung location: lower lobe of lung Qualified Code(s): J18.1 - Lobar pneumonia, unspecified organism (2) COPD (chronic obstructive pulmonary disease) Problem: Chronic Qualifiers: COPD type: emphysema Emphysema type: unspecified Qualified Code(s): J43.9 - Emphysema, unspecified (3) Supratherapeutic INR Problem: Acute (4) Hypertension Problem: Chronic Qualifiers: Hypertension type: essential hypertension Qualified Code(s): I10 - Essential (primary) hypertension (5) Supplemental oxygen dependent Problem: Chronic (6) Chest pain in adult Problem: Acute (7) Atrial fibrillation and flutter Problem: Chronic
[2018-09-19] MEDS: ROSUVASTATIN CALCIUM 10 MG TABLET PO SCH (20:31)
[2018-09-19] MEDS: rOPINIRole HCL 0.5 MG TABLET PO SCH (20:31)
[2018-09-19] MEDS: TAMSULOSIN HCL 0.4 MG CAP.SR.24H PO SCH (20:31)
[2018-09-20] MEDS: ALBUTEROL SULFATE 2.5 MG/0.5 ML VIAL.NEB IH PRN ×4 (06:02→18:08)
[2018-09-20] MEDS: BUDESONIDE 0.5 MG/2 ML VIAL.NEB IH SCH ×2 (06:02→18:08)
[2018-09-20] MEDS: IPRATROPIUM BROMIDE 0.5 MG/2.5 ML VIAL.NEB IH SCH ×4 (06:02→18:06)
[2018-09-20] MEDS: FORMOTEROL FUMARATE 20 MCG/2 ML VIAL IH SCH ×2 (06:02→18:08)
[2018-09-20] MEDS: traMADol HCL 50 MG TABLET PO PRN ×2 (06:39→20:01)
[2018-09-20] MEDS: DILTIAZEM HCL 30 MG TABLET PO SCH ×3 (06:48→21:17)
[2018-09-20] MEDS: PANTOPRAZOLE SODIUM 40 MG TABLET.EC PO SCH ×2 (06:52→17:03)
[2018-09-20 07:41] LABS: Prothrombin Time (Patient) 26.8 Seconds (9.0-11.0)
[2018-09-20 07:44] LABS: INR 2.65 INR (0.90-1.10)
[2018-09-20] MEDS: GABAPENTIN 300 MG CAPSULE PO SCH (09:31)
[2018-09-20] MEDS: AZITHROMYCIN 250 MG TABLET PO SCH (09:31)
[2018-09-20] MEDS: METOPROLOL SUCCINATE 100 MG TABLET.SA PO SCH (09:32)
[2018-09-20] MEDS: AMIODARONE HCL 200 MG TABLET PO SCH (09:32)
[2018-09-20] MEDS: clonazePAM 0.5 MG TABLET PO SCH ×2 (09:34→21:22)
--- NOTE | 2018-09-20 10:56 | PN ---
Subjective - Date and Time Seen Date: 09/20/18 Time: 10:55 Subjective Narrative: Patient continues to struggle with his conditioning. Was only able to walk 7 steps yesterday with physical therapy. Patient otherwise had no acute events overnight and his breathing has improved with antibiotics, breathing treatments, and oxygen administration via nasal cannula. He has been afebrile his vital signs been stable. Objective - Review of Systems Generalized/Overall Review: Reports: Weakness. Denies: Chills, Fever EENTM: Reports: No Symptoms Reported Respiratory: Reports: Cough, Shortness of Breath, Wheezing Cardiac: Reports: No Symptoms Reported Abdominal: Reports: No Symptoms Reported Musculoskeletal Complaints: Reports: No Symptoms Reported Neurological: Reports: No Symptoms Reported Skin: Reports: No Symptoms Reported - Vitals Vitals: Last Vital Signs Temp 36.7 C 09/20/18 06:59 Pulse 84 09/20/18 10:20 Resp 20 09/20/18 10:20 BP 110/58 09/20/18 09:32 Pulse Ox 93 09/20/18 10:10 - Abnormal Lab Findings Abnormal Lab Findings: Abnormal Lab Results 09/20/18 Range/Units 07:15 PT 26.8 H (9.0-11.0) Seconds INR (Anticoag Therapy) 2.65 H (0.90-1.10) INR - Exam Constitutional: Present: Alert, Oriented x3, Cooperative, Elderly Neck: Present: non-tender, supple Respiratory: Present: decreased breath sounds - Left greater than right, wheezing - Bilateral lung bases, improving. Absent: no accessory muscle use, respiratory distress Cardiovascular/Chest: Present: normal peripheral pulses - left greater than right, irregularly irregular Abdomen: Present: Normal bowel sounds, soft, nontender Skin Exam: Present: normal color, warm/dry Appearance: Present: appropriate appearance, appropriate insight Eye contact: Present: cooperative, good eye contact Thoughts: Present: normal thought pattern, normal mood /affect Assessment/Plan Plan Narrative: We will continue Rocephin and azithromycin for his pneumonia, this is improving and he will likely need another 2 days. Augmentin and prednisone stopped. Continue supplemental oxygen as needed to maintain sats of greater than 88%, continue incentive spirometry. Discussed with the patient that I think likely his deconditioning has caused a lot of his distress more so than a worsening pulmonary infection. Blood cultures negative up-to-date. Restart warfarin as his INR has returned to the appropriate range. Will repeat INR is in the morning. Continue home breathing medications as well as other chronic medicines for his hypertension, anxiety, BPH. Patient started on a regular diet. No DVT prophylaxis is needed at this time as he is supratherapeutic on his warfarin. Will order PT and OT to evaluate and help with his deconditioning. Nurses will call with any questions or concerns. - Problems/Diagnosis (1) Pneumonia Problem: Acute Qualifiers: Pneumonia type: due to unspecified organism Laterality: left Lung locati on: lower lobe of lung Qualified Code(s): J18.1 - Lobar pneumonia, unspecified organism (2) COPD (chronic obstructive pulmonary disease) Problem: Chronic Qualifiers: COPD type: emphysema Emphysema type: unspecified Qualified Code(s): J43.9 - Emphysema, unspecified (3) Supratherapeutic INR Problem: Acute (4) Hypertension Problem: Chronic Qualifiers: Hypertension type: essential hypertension Qualified Code(s): I10 - Essential (primary) hypertension (5) Supplemental oxygen dependent Problem: Chronic (6) Chest pain in adult Problem: Acute (7) Atrial fibrillation and flutter Problem: Chronic
[2018-09-20] MEDS: WARFARIN SODIUM 5 MG TABLET PO SCH (17:03)
[2018-09-20] MEDS ORDERED: ALBUTEROL SULFATE/IPRATROPIUM 3 ML NEBU IH SCH (19:00)
[2018-09-20] MEDS: TAMSULOSIN HCL 0.4 MG CAP.SR.24H PO SCH (21:17)
[2018-09-20] MEDS: ROSUVASTATIN CALCIUM 10 MG TABLET PO SCH (21:17)
[2018-09-20] MEDS: rOPINIRole HCL 0.5 MG TABLET PO SCH (21:17)
[2018-09-21] MEDS: ACETAMINOPHEN 325 MG TABLET PO PRN
[2018-09-21 05:24] LABS: Prothrombin Time (Patient) 22.6 Seconds (9.0-11.0)
[2018-09-21 05:25] LABS: INR 2.24 INR (0.90-1.10)
[2018-09-21] MEDS: IPRATROPIUM BROMIDE 0.5 MG/2.5 ML VIAL.NEB IH SCH ×4 (06:00→18:04)
[2018-09-21] MEDS: BUDESONIDE 0.5 MG/2 ML VIAL.NEB IH SCH ×2 (06:00→18:05)
[2018-09-21] MEDS: FORMOTEROL FUMARATE 20 MCG/2 ML VIAL IH SCH ×2 (06:00→18:06)
[2018-09-21] MEDS: ALBUTEROL SULFATE 2.5 MG/0.5 ML VIAL.NEB IH PRN ×2 (06:01→14:46)
[2018-09-21] MEDS: DILTIAZEM HCL 30 MG TABLET PO SCH ×3 (06:33→21:14)
[2018-09-21] MEDS: PANTOPRAZOLE SODIUM 40 MG TABLET.EC PO SCH ×2 (06:34→16:24)
[2018-09-21] MEDS: AMIODARONE HCL 200 MG TABLET PO SCH (08:26)
[2018-09-21] MEDS: GABAPENTIN 300 MG CAPSULE PO SCH (08:26)
[2018-09-21] MEDS: AZITHROMYCIN 250 MG TABLET PO SCH (08:26)
[2018-09-21] MEDS: clonazePAM 0.5 MG TABLET PO SCH ×2 (10:13→21:12)
[2018-09-21] MEDS: METOPROLOL SUCCINATE 100 MG TABLET.SA PO SCH (12:07)
[2018-09-21] MEDS: traMADol HCL 50 MG TABLET PO PRN (13:34)
[2018-09-21] MEDS: WARFARIN SODIUM 5 MG TABLET PO SCH (16:22)
--- NOTE | 2018-09-21 16:40 | PN ---
Subjective - Date and Time Seen Date: 09/21/18 Time: 16:39 Subjective Narrative: Patient denies any adverse events overnight. States his breathing is better especially while on oxygen. He continues to improve with physical therapy and is able to walk further than he did the day previously. So his major concerns with his deconditioning and his inability to walk like he thinks he should be able to but from a infectious standpoint he is improving each day. His vital signs have been stable and has been afebrile. Cough improving. Objective - Review of Systems Generalized/Overall Review: Reports: Weakness. Denies: Chills, Fever EENTM: Reports: No Symptoms Reported Respiratory: Reports: Cough, Shortness of Breath. Denies: Wheezing Cardiac: Reports: No Symptoms Reported Abdominal: Denies: Nausea, Vomiting Musculoskeletal Complaints: Reports: No Symptoms Reported Neurological: Reports: No Symptoms Reported Skin: Reports: No Symptoms Reported - Vitals Vitals: Last Vital Signs Temp 36.9 C 09/21/18 16:24 Pulse 80 09/21/18 16:24 Resp 20 09/21/18 16:24 BP 120/64 09/21/18 16:24 Pulse Ox 98 09/21/18 16:24 - Abnormal Lab Findings Abnormal Lab Findings: Abnormal Lab Results 09/21/18 Range/Units 05:05 PT 22.6 H (9.0-11.0) Seconds INR (Anticoag Therapy) 2.24 H (0.90-1.10) INR - Exam Constitutional: Present: Alert, Oriented x3, Cooperative, Elderly ENT Exam: Present: hearing grossly normal, moist mucous membranes. Absent: nasal congestion Neck: Present: non-tender, supple Respiratory: Present: chest non-tender, decreased breath sounds - Left greater than right in the bases, crackles - Improving, right lower lung. Absent: no accessory muscle use, respiratory distress, wheezing Cardiovascular/Chest: Present: normal peripheral pulses, irregularly irregular Abdomen: Present: Normal bowel sounds, soft, nontender Skin Exam: Present: normal color, warm/dry Appearance: Present: appropriate appearance, appropriate insight Eye contact: Present: cooperative, good eye contact Thoughts: Present: normal thought pattern, normal mood /affect Assessment/Plan Plan Narrative: We will continue Rocephin and azithromycin for his pneumonia for 1 more day. Continue supplemental oxygen as needed to maintain sats of greater than 88%, continue incentive spirometry. Discussed with the patient that I think likely his deconditioning has caused a lot of his distress more so than a worsening pulmonary infection. Blood cultures negative up-to-date. Restart warfarin as his INR has returned to the appropriate range. Discussed with patient possibility of going to short-term nursing facility as he is significantly deconditioned and unable to care for himself or take care of his ADLs on his own. He likely needs aggressive physical therapy as well as continued respiratory therapy to maximize his respiratory potential. Patient is considering this at this time, again we will discuss this tomorrow with him. Continue home breathing medications as well as other chronic medicines for his hypertension, anxiety, BPH. Patient started on a regular diet. No DVT prophylaxis is needed at this time as he is supratherapeutic on his warfarin. Will order PT and OT to evaluate and help with his deconditioning. Nurses will call with any questions or concerns. - Problems/Diagnosis (1) Pneumonia Problem: Acute Qualifiers: Pneumonia type: due to unspecified organism Laterality: left Lung location: lower lobe of lung Qualified Code(s): J18.1 - Lobar pneumonia, unspecified organism (2) COPD (chronic obstructive pulmonary disease) Problem: Chronic Qualifiers: COPD type: emphysema Emphysema type: unspecified Qualified Code(s): J43.9 - Emphysema, unspecified (3) Supratherapeutic INR Problem: Acute (4) Hypertension Problem: Chronic Qualifiers: Hypertension type: essential hypertension Qualified Code(s): I10 - Essential (primary) hypertension (5) Supplemental oxygen dependent Problem: Chronic (6) Chest pain in adult Problem: Acute (7) Atrial fibrillation and flutter Problem: Chronic
[2018-09-21] MEDS: ROSUVASTATIN CALCIUM 10 MG TABLET PO SCH (21:08)
[2018-09-21] MEDS: TAMSULOSIN HCL 0.4 MG CAP.SR.24H PO SCH (21:09)
[2018-09-21] MEDS: rOPINIRole HCL 0.5 MG TABLET PO SCH (21:09)
[2018-09-22] MEDS: DILTIAZEM HCL 30 MG TABLET PO SCH ×3 (05:58→21:07)
[2018-09-22] MEDS: BUDESONIDE 0.5 MG/2 ML VIAL.NEB IH SCH ×2 (06:01→18:13)
[2018-09-22] MEDS: IPRATROPIUM BROMIDE 0.5 MG/2.5 ML VIAL.NEB IH SCH ×4 (06:01→18:13)
[2018-09-22] MEDS: ALBUTEROL SULFATE 2.5 MG/0.5 ML VIAL.NEB IH PRN ×2 (06:01→14:15)
[2018-09-22] MEDS: FORMOTEROL FUMARATE 20 MCG/2 ML VIAL IH SCH ×2 (06:01→18:13)
[2018-09-22] MEDS: PANTOPRAZOLE SODIUM 40 MG TABLET.EC PO SCH ×2 (07:27→17:14)
[2018-09-22] MEDS: AMIODARONE HCL 200 MG TABLET PO SCH (08:55)
[2018-09-22] MEDS: clonazePAM 0.5 MG TABLET PO SCH ×2 (08:55→21:07)
[2018-09-22] MEDS: METOPROLOL SUCCINATE 100 MG TABLET.SA PO SCH (08:55)
[2018-09-22] MEDS: AZITHROMYCIN 250 MG TABLET PO SCH (08:56)
[2018-09-22] MEDS: GABAPENTIN 300 MG CAPSULE PO SCH (08:56)
--- NOTE | 2018-09-22 16:50 | PN ---
Subjective - Date and Time Seen Date: 09/22/18 Time: 16:50 Subjective Narrative: Patient continues to improve each day from pulmonary standpoint. He is maintaining sats better and his vital signs been stable. He denies any acute events overnight. He denies productive cough, but still endorses some shortness of breath especially with exertion. Otherwise he is doing well. Objective - Review of Systems Generalized/Overall Review: Reports: Weakness. Denies: Chills, Fever EENTM: Reports: No Symptoms Reported Respiratory: Reports: Cough - Nonproductive, Shortness of Breath. Denies: Wheezing Cardiac: Denies: Chest Pain, Edema, Palpitations Abdominal: Reports: No Symptoms Reported Genitourinary Symptoms: Reports: No Symptoms Reported Musculoskeletal Complaints: Reports: No Symptoms Reported Neurological: Reports: No Symptoms Reported Skin: Reports: No Symptoms Reported - Vitals Vitals: Last Vital Signs Temp 36.7 C 09/22/18 14:32 Pulse 73 09/22/18 14:32 Resp 18 09/22/18 14:32 BP 108/65 09/22/18 14:32 Pulse Ox 96 09/22/18 14:32 - Exam Constitutional: Present: Alert, Oriented x3, Cooperative, Well developed, Elderly ENT Exam: Present: hearing grossly normal. Absent: nasal drainage Neck: Present: non-tender, supple Respiratory: Present: decreased breath sounds - Left greater than right at bases. Absent: lungs clear - Significantly improved from the day of admission, no respiratory distress, no accessory muscle use, No wheezing Abdomen: Present: Normal bowel sounds, soft, nontender Skin Exam: Present: normal color, warm/dry Appearance: Present: appropriate appearance, appropriate insight Eye contact: Present: cooperative, good eye contact Thoughts: Present: normal thought pattern, normal mood /affect Assessment/Plan Plan Narrative: We will discontinue abx after todays dose. Continue supplemental oxygen as needed to maintain sats of greater than 88%, continue incentive spirometry. Discussed with the patient that I think likely his deconditioning has caused a lot of his distress more so than a worsening pulmonary infection. Blood cultures negative. Restart warfarin as his INR has returned to the appropriate range. Discussed with patient possibility of going to short-term nursing facility as he is significantly deconditioned and unable to care for himself or take care of his ADLs on his own. He likely needs aggressive physical therapy as well as continued respiratory therapy to maximize his respiratory potential. Patient is in agreement with this plan and looks forward to being discharged to [facility] tomorrow afternoon. Continue home breathing medications as well as other chronic medicines for his hypertension, anxiety, BPH. Patient started on a regular diet. Patient on warfarin for A. fib, no other DVT prophylaxis needed at this time.. Continue PT and OT to evaluate and help with his deconditioning. Nurses will call with any questions or concerns. - Problems/Diagnosis (1) Pneumonia Problem: Acute Qualifiers: Pneumonia type: due to unspecified organism Laterality: left Lung location: lower lobe of lung Qualified Code(s): J18.1 - Lobar pneumonia, unspecified organism (2) COPD (chronic obstructive pulmonary disease) Problem: Chronic Qualifiers: COPD type: emphysema Emphysema type: unspecified Qualified Code(s): J43.9 - Emphysema, unspecified (3) Supratherapeutic INR Problem: Acute (4) Hypertension Problem: Chronic Qualifiers: Hypertension type: essential hypertension Qualified Code(s): I10 - Essential (primary) hypertension (5) Supplemental oxygen dependent Problem: Chronic (6) Chest pain in adult Problem: Acute (7) Atrial fibrillation and flutter Problem: Chronic
[2018-09-22] MEDS: WARFARIN SODIUM 5 MG TABLET PO SCH (17:14)
[2018-09-22] MEDS: rOPINIRole HCL 0.5 MG TABLET PO SCH (21:07)
[2018-09-22] MEDS: ROSUVASTATIN CALCIUM 10 MG TABLET PO SCH (21:07)
[2018-09-22] MEDS: TAMSULOSIN HCL 0.4 MG CAP.SR.24H PO SCH (21:07)
[2018-09-22] MEDS: traMADol HCL 50 MG TABLET PO PRN (21:12)
[2018-09-23] MEDS: DILTIAZEM HCL 30 MG TABLET PO SCH (05:11)
[2018-09-23] MEDS: ACETAMINOPHEN 325 MG TABLET PO PRN (05:12)
[2018-09-23] MEDS: IPRATROPIUM BROMIDE 0.5 MG/2.5 ML VIAL.NEB IH SCH ×2 (06:01→10:07)
[2018-09-23] MEDS: FORMOTEROL FUMARATE 20 MCG/2 ML VIAL IH SCH (06:02)
[2018-09-23] MEDS: BUDESONIDE 0.5 MG/2 ML VIAL.NEB IH SCH (06:02)
[2018-09-23] MEDS: PANTOPRAZOLE SODIUM 40 MG TABLET.EC PO SCH (06:28)
[2018-09-23] MEDS: METOPROLOL SUCCINATE 100 MG TABLET.SA PO SCH (09:18)
[2018-09-23] MEDS: traMADol HCL 50 MG TABLET PO PRN (09:19)
[2018-09-23] MEDS: GABAPENTIN 300 MG CAPSULE PO SCH (09:19)
[2018-09-23] MEDS: AMIODARONE HCL 200 MG TABLET PO SCH (09:20)
[2018-09-23] MEDS: clonazePAM 0.5 MG TABLET PO SCH (09:20)
[2018-09-23] MEDS: ALBUTEROL SULFATE 2.5 MG/0.5 ML VIAL.NEB IH PRN (10:10)
--- NOTE | 2018-09-23 11:54 | DS ---
(1) Pneumonia Problem: Acute Qualifiers: Pneumonia type: due to unspecified organism Laterality: left Lung location: lower lobe of lung Qualified Code(s): J18.1 - Lobar pneumonia, unspecified organism (2) COPD (chronic obstructive pulmonary disease) Problem: Chronic Qualifiers: COPD type: emphysema Emphysema type: unspecified Qualified Code(s): J43.9 - Emphysema, unspecified (3) Supratherapeutic INR Problem: Acute (4) Hypertension Problem: Chronic Qualifiers: Hypertension type: essential hypertension Qualified Code(s): I10 - Essential (primary) hypertension (5) Supplemental oxygen dependent Problem: Chronic (6) Chest pain in adult Problem: Acute (7) Atrial fibrillation and flutter Problem: Chronic Description of Stay: Patient presented to the hospital for shortness of breath and cough. Failed outpatient treatment for pneumonia, had been on Augmentin and prednisone for 8 days prior to coming to the hospital. While here initially he was having difficulty maintaining O2 saturations while on oxygen therapy. This improved significantly each day that is here. He has been started on azithromycin and Rocephin for treatment of his pneumonia. From a pulmonary standpoint his lung function, his O2 sats, and his respirations all improved each day. Physical therapy and occupational therapy were ordered and patient significantly struggled with deconditioning, initially being able to only walk 7 steps at a time. Patient was at risk for falls and worsening comorbidities/mortality due to his deconditioning and poor pulmonary function. Advised him to check into a short-term nursing facility for aggressive therapy which he agreed would be best for him. He is motivated to strengthen both his pulmonary function as well as his muscular deconditioning which he is going to work hard at [facility]. We will discharge him in stable condition, on a regular diet, no new medications needed at this time. While here his vital signs have been stable, he will likely need to be on oxygen therapy daily now instead of nightly which patient states understanding to. Procedures Performed: none Results and Findings: Pending Mircobiology Results 09/18/18 13:16 Blood Blood Culture - Preliminary NO GROWTH AFTER 48 HOURS 09/18/18 12:55 Blood Blood Culture - Preliminary NO GROWTH AFTER 48 HOURS Lab Pending Results 09/18/18 11:58: WBC 11.2 H, RBC 4.05 L, Hgb 12.3 L, Hct 38.6 L, MCV 95.3, MCH 30.4, MCHC 31.9 L, RDW 12.7, Plt Count 204, MPV 10.0, Immature Gran % (Auto) 0.60 H, Immature Gran # (Auto) 0.07 H, Neutrophils % 85.2 H, Lymphocytes % 8.3 L, Monocytes % 5.1, Eosinophils % 0.5, Basophils % 0.3, Nucleated RBC % 0.0, Neutrophils # 9.6 H, Lymphocytes # 0.93 L, Monocytes # 0.6, Eosinophils # 0.1, Absolute Basophils 0.0 09/18/18 11:58: Sodium 142, Plasma Sodium 142, Potassium 4.7 H, Chloride 103, C arbon Dioxide 35.6 H, Anion Gap 8.1, BUN 14, Creatinine 1.07, Est GFR (Non-Af Amer) 72, BUN/Creatinine Ratio 13.1, Random Glucose 112 H, Calcium 8.9, Calcium Adj for Albumin 9.0, Magnesium 1.9, Total Bilirubin 0.2, AST 12, ALT 14 L, Alkaline Phosphatase 57, Troponin I Less than 0.017, Total Protein 6.9, Albumin 3.5 09/18/18 11:58: PT 51.6 H, INR (Anticoag Therapy) 5.08 H* 09/18/18 11:58: B-Natriuretic Peptide 340 09/18/18 11:58: Lactic Acid, Venous 0.8 09/18/18 12:40: pCO2 41.6, pO2 86.2, HCO3 23.9, Total CO2 25.2 H, Base Excess - 1.2, ABG pH 7.38, ABG O2 Sat (Measured) 96.4 09/19/18 06:30: WBC 12.2 H, RBC 4.00 L, Hgb 12.1 L, Hct 38.2 L, MCV 95.5, MCH 30.3, MCHC 31.7 L, RDW 12.6, Plt Count 187, MPV 10.4, Immature Gran % (Auto) 0.40, Immature Gran # (Auto) 0.05 H, Neutrophils % 72.7, Lymphocytes % 19.6 L, Monocytes % 6.2, Eosinophils % 0.9, Basophils % 0.2, Nucleated RBC % 0.0, Neutrophils # 8.9 H, Lymphocytes # 2.38, Monocytes # 0.8, Eosinophils # 0.1, Absolute Basophils 0.0 09/19/18 06:35: PT 53.4 H, INR (Anticoag Therapy) 5.25 H* 09/20/18 07:15: PT 26.8 H, INR (Anticoag Therapy) 2.65 H 09/21/18 05:05: PT 22.6 H, INR (Anticoag Therapy) 2.24 H Discharge Location: [facility] Disposition: SNF Condition: Fair Discharge Activity: Activity as tolerated Discharge Diet: General/regular food Senior Living Therapy: Physicial Therapy, Occupation Therapy Referrals: Hardy Caro MD [Primary Care Provider] - Additional Patient Instructions (free text): -Please make TCM appointment unless residential discharge. Thank you! Marisel @ [phone]. Complete Home Medications List: Complete Home Medication List: Budesonide [Pulmicort Respules] 2 ml INHALATION BID 09/23/16 Cyanocobalamin [Vitamin B-12] 1,000 mcg IM Q30D 09/23/16 Ipratropium [place] 0.2 mg INHALATION QID 09/23/16 Meclizine HCl [Antivert] 25 mg PO TID PRN 09/23/16 Nitroglycerin [Nitrostat] 1 tab SUBLINGUAL Q5M 09/23/16 Pantoprazole Sodium 40 mg PO BID 09/23/16 Tramadol HCl [Rybix Odt] 50 mg PO BID PRN 09/23/16 Albuterol Sulfate [Albuterol Sulfate 2.5 MG/0.5ML] 2.5 mg INHALATION Q2H PRN #0 vial.neb 10/03/16 arformoterol 15 mcg/2 mL solution for nebulization 2 ml IH BID 06/11/18 gabapentin 300 mg capsule 300 mg PO DAILY 06/11/18 cyclobenzaprine 10 mg tablet 5 - 10 mg PO TID #60 tab 06/28/18 trazodone 100 mg tablet 200 mg PO HS PRN #60 tab 06/28/18 metoprolol succinate ER 50 mg tablet,extended release 24 hr 100 mg PO DAILY tab 07/26/18 amiodarone 200 mg tablet 200 mg PO DAILY #60 tab 07/28/18 clonazepam 0.5 mg tablet 0.5 mg PO BID #60 tab 08/12/18 promethazine 25 mg tablet 25 mg PO DAILY #30 tab 08/27/18 diltiazem 30 mg tablet 30 mg PO TID #90 tab 09/02/18 tamsulosin 0.4 mg capsule 0.4 mg PO HS #30 cap 09/02/18 ropinirole 0.5 mg tablet 0.5 mg PO HS #90 tab 09/07/18 rosuvastatin 5 mg tablet 5 mg PO DAILY #90 tab 09/07/18 Amox Tr/Potassium Clavulanate [Augmentin 500-125 Tablet] 500 mg PO DAILY 09/18/18 Tiotropium [place] [Spiriva] 1 cap INHALATION DAILY 09/18/18 Warfarin Sodium 5 mg PO DAILY 09/18/18 predniSONE [Prednisone] 40 mg PO DAILY 09/18/18
[2018-09-23 13:22] VITALS: BP 120/61
== END 2018-09-23 13:40 | DRG 194 ==
LOC: ER 11:10 → MS 11:10
PROVIDERS: ADMIT Family Medicine; ATTEND Allergy & Immunology
DX: J18.1 Lobar pneumonia, unspecified organism; I48.2 Chronic atrial fibrillation; R07.9 Chest pain, unspecified; Z87.891 Personal history of nicotine dependence; I10 Essential (primary) hypertension; D68.69 Other thrombophilia; Z99.81 Dependence on supplemental oxygen; Z79.01 Long term (current) use of anticoagulants; J43.9 Emphysema, unspecified
CPT/HCPCS: 36415; 36600; 71020; 71046; 80053; 82803; 83519; 83605; 83735; 83880; 84484; 85025; 85610; 87040; 93005; 94640; 94664; 96365; 97110; 97116; 97162; 99284

== ENCOUNTER 2018-10-21 14:14 | Inpatient (IN) ==
[2018-10-21] MEDS ORDERED: ALBUTEROL SULFATE/IPRATROPIUM 3 ML NEBU IH ONE (14:35)
[2018-10-21] MEDS ORDERED: NORMAL SALINE 1,000 ML IV ONE (14:35)
[2018-10-21 15:09] LABS: Hematocrit 39.2 % (42.0-52.0); Hemoglobin 11.9 gm/dL (13.5-18.0); Mean Cell Volume 99.7 fl (78-100); Mean Corpuscular Hemoglobin 30.3 pg (27-31); Mean Corpuscular Hgb Conc 30.4 g/dl (32-36); Mean Platelet Volume 9.7 fl (8-11.3); Neutrophil # 10.2 K/mm3 (1.3-6.0); Neutrophil % 94.9 % (42-75.0); Platelet Count 113 K/mm3 (150-450); Red Blood Count 3.93 M/mm3 (4.7-6.0); Red Cell Distribution Width 14.5 % (11.5-14.0); White Blood Count 10.7 K/mm3 (4.0-10.5)
[2018-10-21 15:16] LABS: Prothrombin Time (Patient) 50.7 Seconds (9.1-10.7)
[2018-10-21 15:24] LABS: Albumin * 2.7 gm/dl (3.4-5.0); Anion Gap 6.4 mmol/L (6.8-13.8); BUN/Creatinine Ratio 26.7 (9.0-21.6); Bilirubin, Total 0.4 mg/dL (0.0-1.1); Ca. Corrected For Albumin 9.5 mg/dL (8.4-10.2); Calcium * 8.8 mg/dL (7.9-10.9); Carbon Dioxide 39.5 mmol/L (24-32.6); Potassium 4.9 mmol/L (3.4-4.6); Total Protein 6.5 gm/dL (6.2-8.2)
[2018-10-21 15:25] LABS: Troponin I 0.055 ng/mL (0.00-0.10)
[2018-10-21 15:30] LABS: INR 5.47 INR (0.92-1.08)
[2018-10-21] MEDS ORDERED: LEVOFLOXACIN IN DEXTROSE 5 % 500 MG/100 ML BAG IV SCH (16:15)
--- NOTE | 2018-10-21 18:03 | ERNOTE ---
Dyspnea - Date Date of Service: 10/21/18 - General Presenting Symptoms: shortness of breath, other Time Seen by Provider: 10/21/18 14:21 Source: patient, family Exam Limitations: clinical condition - Immun/Allergies/Home Medications Immunizations: IMMUNIZATION HX Immunizations Up to Date Yes History of Influenza Vaccine Yes Hx Pneumococcal Vaccination Yes Allergies/Adverse Reactions: Allergies prednisone Allergy (Mild, Verified 10/21/18 14:24) Hives simvastatin Allergy (Unknown, Verified 10/21/18 14:24) Unknown Iodinated Contrast- Oral and IV Dye [Iodinated Contrast Media - IV Dye] Adverse Reaction (Severe, Verified 10/21/18 14:24) "coded" cephalexin Adverse Reaction (Intermediate, Verified 10/21/18 14:24) Nausea codeine Adverse Reaction (Mild, Verified 10/21/18 14:24) nausea Home Medications: HOME MEDICATIONS Budesonide [Pulmicort Respules] 2 ml INHALATION BID 09/23/16 [Last Taken 06/16/18] Cyanocobalamin [Vitamin B-12] 1,000 mcg IM Q30D 09/23/16 [Last Taken 06/16/18] Ipratropium [place] 0.2 mg INHALATION QID 09/23/16 [Last Taken 06/16/18] Meclizine HCl [Antivert] 25 mg PO TID PRN 09/23/16 [Last Taken Unknown] Nitroglycerin [Nitrostat] 1 tab SUBLINGUAL Q5M 09/23/16 [Last Taken Unknown] Pantoprazole Sodium 40 mg PO BID 09/23/16 [Last Taken 06/16/18] Tramadol HCl [Rybix Odt] 50 mg PO BID PRN 09/23/16 [Last Taken Unknown] Albuterol Sulfate [Albuterol Sulfate 2.5 MG/0.5ML] 2.5 mg INHALATION Q2H PRN #0 vial.neb 10/03/16 [Last Taken 06/16/18] arformoterol 15 mcg/2 mL solution for nebulization 2 ml IH BID 06/11/18 [Last Taken 06/16/18] cyclobenzaprine 10 mg tablet 5 - 10 mg PO TID #60 tab 06/28/18 [Last Taken Unknown] trazodone 100 mg tablet 200 mg PO HS PRN #60 tab 06/28/18 [Last Taken Unknown] metoprolol succinate ER 50 mg tablet,extended release 24 hr 100 mg PO DAILY tab 07/26/18 [Last Taken Unknown] amiodarone 200 mg tablet 200 mg PO DAILY #60 tab 07/28/18 [Last Taken Unknown] clonazepam 0.5 mg tablet 0.5 mg PO BID #60 tab 08/12/18 [Last Taken Unknown] diltiazem 30 mg tablet 30 mg PO TID #90 tab 09/02/18 [Last Taken Unknown] tamsulosin 0.4 mg capsule 0.4 mg PO HS #30 cap 09/02/18 [Last Taken Unknown] ropinirole 0.5 mg tablet 0.5 mg PO HS #90 tab 09/07/18 [Last Taken Unknown] rosuvastatin 5 mg tablet 5 mg PO DAILY #90 tab 09/07/18 [Last Taken Unknown] Tiotropium [place] [Spiriva] 1 cap INHALATION DAILY 09/18/18 [Last Taken Unknown] Warfarin Sodium 5 mg PO DAILY 09/18/18 [Last Taken Unknown] predniSONE [Prednisone] 40 mg PO DAILY 09/18/18 [Last Taken Unknown] promethazine 25 mg tablet 25 mg PO DAILY #30 tab 09/23/18 [Last Taken Unknown] gabapentin 300 mg capsule 300 mg PO DAILY #30 cap 10/18/18 [Last Taken Unknown] - History of Present Illness Narrative: Patient presents to the ED for trouble breathing. He was in the [facility] overnight last night and diagnosed with pneumonia. Given IV Vanco and levaquin. Discharged this am and [facility] Needing increased oxygen over his 2L NC to keep his sats up. He seems confused here. Denies acute pain. Nothing seems to make this better or worse. Very little history is available from the patient. 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 Initiating event: Reports: other - known pneumonia Modifying Factors - (Improves): Reports: nothing Modifying Factors (Worsens): Reports: nothing Associated Symptoms-Dyspnea: Reports: fever/chills, cough, loss of appetite Prior Treatment: Reports: recently seen, treated by physician, recently hospitalized, currently on antibiotics Review of Systems - Narrative Narrative: unobtainable in entirety d/t patient condition Medical History (Last Reviewed 10/21/18 @ 18:00 by Davi Rao MD) Neck fracture (Resolved) Onset Date: Unknown Vitamin B 12 deficiency (Acute) Onset Date: Unknown Depression (Chronic) Onset Date: Unknown COPD (chronic obstructive pulmonary disease) (Chronic) Onset Date: Unknown CAD (coronary artery disease) (Chronic) Onset Date: Unknown BPH (benign prostatic hyperplasia) (Chronic) Onset Date: Unknown Asthma (Chronic) Onset Date: Unknown Anxiety (Chronic) Onset Date: Unknown Anorexia (Acute) Onset Date: ~10/10/16 AAA (abdominal aortic aneurysm) (Chronic) Onset Date: ~2015 Cardiac disease Esophageal cancer Surgical History: Surgical History (Last Reviewed 10/21/18 @ 18:00 by Davi Rao MD) History of total left knee replacement (TKR) History of arthroscopy of shoulder Onset Date: ~2014 History of colonoscopy Onset Date: ~2015 History of lobectomy of lung Onset Date: ~1979 History of penile implant Onset Date: Unknown Family History: Family History (Last Reviewed 10/21/18 @ 18:00 by Davi Rao MD) Mother Cancer Father CAD (coronary artery disease) Social History: Preferred Language Filipino Smoking Status Former smoker Abuse History No History of abuse Psych History No pertinent hx Alcohol Use none Drug Use none (Last Updated 09/12/18 @ 17:49 by Hardy Caro MD) No Social History Section defined Physical Exam - Physical Exam General Appearance: Present: other - somnolent, cough, whispering speech, hard to understand Head Exam: Present: normal inspection, no evidence of injury Eye Exam: Normal inspection: bilateral, PERRL: bilateral Ears, Nose, Throat: Absent: pharyngeal erythema Neck: Present: normal inspection Respiratory: Present: no respiratory distress, other - diminished breath sounds bilaterally Cardiovascular/Chest: Present: regular rate, rhythm Gastrointestinal/Abdominal: Present: normal bowel sounds, nontender, soft Back Exam: Absent: CVA tenderness (R), CVA tenderness (L) Extremity Exam: Present: other - no calf tenderness Neurological Exam: Present: other - generalized weakness. No acute unilateral focal motor or sensory deficits Skin Exam: Present: normal color, warm/dry Progress - Results and Orders Patient's Lab Results:: I have reviewed the patient's lab results. - Vital Signs Patient's Vital Signs:: I have reviewed the patient's vital signs. Vital Signs: Vital Signs 10/21/18 14:15 10/21/18 15:18 10/21/18 15:30 Temperature 36.8 C Pulse Rate 81 81 81 Respiratory Rate 22 H 31 H 30 H Blood Pressure 159/87 H 157/87 H 158/83 H O2 Sat by Pulse Oximetry 80 L 100 100 10/21/18 15:34 10/21/18 15:44 10/21/18 15:48 Temperature Pulse Rate 82 84 84 Respiratory Rate 30 H 31 H 34 H Blood Pressure 166/83 H O2 Sat by Pulse Oximetry 98 98 10/21/18 16:03 10/21/18 16:39 Temperature Pulse Rate 82 80 Respiratory Rate 29 H 30 H Blood Pressure 145/64 153/72 H O2 Sat by Pulse Oximetry 92 L 95 - EKG EKG #1 EKG: NSR EKG read: Interp. by me EKG Comments: NSR rate 85. Non-specific, no STEMI - X-Ray X-Ray #1 X-Ray: chest Interpretation: Interp. by me X-ray Comments: I reviewed official radiology report - Progress/Reassessment Chief Complaint: Dyspnea Progress Note-Subjective: 10/21/18 18:02 IV fluids and IV ABx given. After 5pm, therefore d/w Dr mendez who is information assurance analyst, she saw the patient in the ED and will admit. Pt/Family agreeable. Departure Clinical Impression: Pneumonia, Failure of outpatient treatment - Departure Disposition: Still a patient Condition: Fair
--- NOTE | 2018-10-21 19:15 | HP ---
Chief Complaint - Chief Complaint Date of Service: 10/21/18 Time of Service: 17:50 Chief Complaint: Worsening shortness of breath History of Present Illness: 73-year-old male with a past medical history of anxiety, AAA, asthma, BPH, CAD, COPD on 2 L of home oxygen, depression, esophageal cancer presents with complaints of shortness of breath. He had recently been discharged from [facility] where he was diagnosed with pneumonia and started on IV vancomycin and Levaquin. He was discharged from that hospital this morning and return to the care home. He had increasing oxygenation needs and appeared confused therefore he was sent to the emergency room. Chest x-ray shows questionable right lower lobe retrocardiac opacity which could represent atelectasis versus pulmonary infiltrate consider pneumonia. His dose of Levaquin was given in the emergency department and he will be admitted for observation. Medical History (Last Reviewed 10/21/18 @ 18:00 by Davi Rao MD) Neck fracture (Resolved) Onset Date: Unknown Vitamin B 12 deficiency (Acute) Onset Date: Unknown Depression (Chronic) Onset Date: Unknown COPD (chronic obstructive pulmonary disease) (Chronic) Onset Date: Unknown CAD (coronary artery disease) (Chronic) Onset Date: Unknown BPH (benign prostatic hyperplasia) (Chronic) Onset Date: Unknown Asthma (Chronic) Onset Date: Unknown Anxiety (Chronic) Onset Date: Unknown Anorexia (Acute) Onset Date: ~10/10/16 AAA (abdominal aortic aneurysm) (Chronic) Onset Date: ~2015 Cardiac disease Esophageal cancer Surgical History: Surgical History (Last Reviewed 10/21/18 @ 18:00 by Davi Rao MD) History of total left knee replacement (TKR) History of arthroscopy of shoulder Onset Date: ~2014 History of colonoscopy Onset Date: ~2015 History of lobectomy of lung Onset Date: ~1979 History of penile implant Onset Date: Unknown Family History: Family History (Last Reviewed 10/21/18 @ 18:00 by Davi Rao MD) Mother Cancer Father CAD (coronary artery disease) Social History: Preferred Language Nepalese Smoking Status Former smoker Abuse History No History of abuse Psych History No pertinent hx Alcohol Use none Drug Use none (Last Updated 09/12/18 @ 17:49 by Hardy Caro MD) No Social History Section defined Review Of Systems (GEN) - Review of Systems Generalized/Overall Review: Present: Weakness. Absent: Fever Respiratory: Present: Cough, Shortness of Breath Cardiac: Absent: Chest Pain Misc: All systems neg except as marked Immunizations: IMMUNIZATION HX Immunizations Up to Date Yes History of Influenza Vaccine Yes Hx Pneumococcal Vaccination Yes Allergies/Adverse Reactions: Allergies Allergy/AdvReac Type Severity Reaction Status Date / Time prednisone Allergy Mild Hives Verified 10/21/18 14:24 simvastatin Allergy Unknown Unknown Verified 10/21/18 14:24 Iodinated Contrast- Oral and AdvReac Severe "coded" Verified 10/21/18 14:24 IV Dye [Iodinated Contrast Media - IV Dye] cephalexin AdvReac Intermediate Nausea Verified 10/21/18 14:24 codeine AdvReac Mild nausea Verified 10/21/18 14:24 Home Medications: HOME MEDICATIONS Budesonide [Pulmicort Respules] 2 ml INHALATION BID 09/23/16 [Last Taken 06/16/18] Cyanocobalamin [Vitamin B-12] 1,000 mcg IM Q30D 09/23/16 [Last Taken 06/16/18] Ipratropium [place] 0.2 mg INHALATION QID 09/23/16 [Last Taken 06/16/18] Meclizine HCl [Antivert] 25 mg PO TID PRN 09/23/16 [Last Taken Unknown] Nitroglycerin [Nitrostat] 1 tab SUBLINGUAL Q5M 09/23/16 [Last Taken Unknown] Pantoprazole Sodium 40 mg PO BID 09/23/16 [Last Taken 06/16/18] Tramadol HCl [Rybix Odt] 50 mg PO BID PRN 09/23/16 [Last Taken Unknown] Albuterol Sulfate [Albuterol Sulfate 2.5 MG/0.5ML] 2.5 mg INHALATION Q2H PRN #0 vial.neb 10/03/16 [Last Taken 06/16/18] arformoterol 15 mcg/2 mL solution for nebulization 2 ml IH BID 06/11/18 [Last Taken 06/16/18] cyclobenzaprine 10 mg tablet 5 - 10 mg PO TID #60 tab 06/28/18 [Last Taken Unknown] trazodone 100 mg tablet 200 mg PO HS PRN #60 tab 06/28/18 [Last Taken Unknown] metoprolol succinate ER 50 mg tablet,extended release 24 hr 100 mg PO DAILY tab 07/26/18 [Last Taken Unknown] amiodarone 200 mg tablet 200 mg PO DAILY #60 tab 07/28/18 [Last Taken Unknown] clonazepam 0.5 mg tablet 0.5 mg PO BID #60 tab 08/12/18 [Last Taken Unknown] diltiazem 30 mg tablet 30 mg PO TID #90 tab 09/02/18 [Last Taken Unknown] tamsulosin 0.4 mg capsule 0.4 mg PO HS #30 cap 09/02/18 [Last Taken Unknown] ropinirole 0.5 mg tablet 0.5 mg PO HS #90 tab 09/07/18 [Last Taken Unknown] rosuvastatin 5 mg tablet 5 mg PO DAILY #90 tab 09/07/18 [Last Taken Unknown] Tiotropium [place] [Spiriva] 1 cap INHALATION DAILY 09/18/18 [Last Taken Unknown] Warfarin Sodium 5 mg PO DAILY 09/18/18 [Last Taken Unknown] predniSONE [Prednisone] 40 mg PO DAILY 09/18/18 [Last Taken Unknown] promethazine 25 mg tablet 25 mg PO DAILY #30 tab 09/23/18 [Last Taken Unknown] gabapentin 300 mg capsule 300 mg PO DAILY #30 cap 10/18/18 [Last Taken Unknown] Exam - Exam Vital Signs: Vital Signs - Last Taken Temp 36.8 C 10/21/18 18:24 Pulse 80 10/21/18 18:24 Resp 30 H 10/21/18 18:24 BP 153/72 H 10/21/18 18:24 Pulse Ox 95 10/21/18 18:24 Constitutional: Present: Alert, Cooperative, No distress, Elderly, Looks Older than stated age ENT Exam: Present: hearing grossly normal Eye Exam: bilateral eye: normal inspection, PERRL Neck: Present: supple, trachea midline. Absent: lymphadenopathy (R), lymphadenopathy (L) Back Exam: Present: normal inspection, no vertebral tenderness Respiratory: Present: rhonchi - Rhonchi throughout bilateral lung arellano, wheezing - Expiratory wheezing throughout bilateral lung arellano. Absent: crackles Cardiovascular/Chest: Present: normal peripheral pulses, regular rate, rhythm, no murmur Peripheral Pulses: dorsalis-pedis (R): 1+, dorsalis-pedis (L): 1+ Abdomen: Present: Normal bowel sounds, soft, nontender, nondistended Extremity: Present: no pedal edema Skin Exam: Present: normal color, warm/dry Eye contact: Present: cooperative. Absent: normal speech Thoughts: Present: normal mood /affect Diagnostic Studies: Abnormal Lab Results 10/21/18 10/21/18 10/21/18 Range/Units 14:40 14:54 14:54 WBC 10.7 H (4.0-10.5) K/mm3 RBC 3.93 L (4.7-6.0) M/mm3 Hgb 11.9 L (13.5-18.0) gm/dL Hct 39.2 L (42.0-52.0) % MCHC 30.4 L (32-36) g/dl RDW 14.5 H (11.5-14.0) % Plt Count 113 L (150-450) K/mm3 Immature Gran % (Auto) 0.50 H (0.001-0.429) % Immature Gran # (Auto) 0.05 H (0.000-0.0310) K/mm3 Neutrophils % 94.9 H (42-75.0) % Lymphocytes % 2.1 L (20-51) % Neutrophils # 10.2 H (1.3-6.0) K/mm3 Lymphocytes # 0.22 L (1.5-3.5) k/mm3 PT 50.7 H (9.1-10.7) Seconds INR (Anticoag Therapy) 5.47 H* (0.92-1.08) INR pO2 58.3 L (83.0-108.0) mmHg Total CO2 25.8 H (19.0-24.0) mmol/L ABG O2 Sat (Measured) 90.7 L (94.0-98.0) % Potassium (3.4-4.6) mmol/L Carbon Dioxide (24-32.6) mmol/L Anion Gap (6.8-13.8) mmol/L BUN/Creatinine Ratio (9.0-21.6) Random Glucose (70-110) mg/dL Albumin (3.4-5.0) gm/dl 10/21/18 Range/Units 14:54 WBC (4.0-10.5) K/mm3 RBC (4.7-6.0) M/mm3 Hgb (13.5-18.0) gm/dL Hct (42.0-52.0) % MCHC (32-36) g/dl RDW (11.5-14.0) % Plt Count (150-450) K/mm3 Immature Gran % (Auto) (0.001-0.429) % Immature Gran # (Auto) (0.000-0.0310) K/mm3 Neutrophils % (42-75.0) % Lymphocytes % (20-51) % Neutrophils # (1.3-6.0) K/mm3 Lymphocytes # (1.5-3.5) k/mm3 PT (9.1-10.7) Seconds INR (Anticoag Therapy) (0.92-1.08) INR pO2 (83.0-108.0) mmHg Total CO2 (19.0-24.0) mmol/L ABG O2 Sat (Measured) (94.0-98.0) % Potassium 4.9 H (3.4-4.6) mmol/L Carbon Dioxide 39.5 H (24-32.6) mmol/L Anion Gap 6.4 L (6.8-13.8) mmol/L BUN/Creatinine Ratio 26.7 H (9.0-21.6) Random Glucose 183 H (70-110) mg/dL Albumin 2.7 L (3.4-5.0) gm/dl Laboratory Results WBC 10.7 K/mm3 (4.0-10.5) H 10/21/18 14:54 RBC 3.93 M/mm3 (4.7-6.0) L 10/21/18 14:54 Hgb 11.9 gm/dL (13.5-18.0) L 10/21/18 14:54 Hct 39.2 % (42.0-52.0) L 10/21/18 14:54 MCV 99.7 fl (78-100) 10/21/18 14:54 MCH 30.3 pg (27-31) 10/21/18 14:54 MCHC 30.4 g/dl (32-36) L 10/21/18 14:54 RDW 14.5 % (11.5-14.0) H 10/21/18 14:54 Plt Count 113 K/mm3 (150-450) L 10/21/18 14:54 MPV 9.7 fl (8-11.3) 10/21/18 14:54 Immature Gran % (Auto) 0.50 % (0.001-0.429) H 10/21/18 14:54 Immature Gran # (Auto) 0.05 K/mm3 (0.000-0.0310) H 10/21/18 14:54 Neutrophils % 94.9 % (42-75.0) H 10/21/18 14:54 Lymphocytes % 2.1 % (20-51) L 10/21/18 14:54 Monocytes % 2.4 % (0.0-9) 10/21/18 14:54 Eosinophils % 0.1 % (0.0-3.0) 10/21/18 14:54 Basophils % 0.0 % (0.0-1.0) 10/21/18 14:54 Nucleated RBC % 0.0 k/mm3 (0-1) 10/21/18 14:54 Neutrophils # 10.2 K/mm3 (1.3-6.0) H 10/21/18 14:54 Lymphocytes # 0.22 k/mm3 (1.5-3.5) L 10/21/18 14:54 Monocytes # 0.3 k/mm3 (0.0-1.0) 10/21/18 14:54 Eosinophils # 0.0 k/mm3 (0.0-0.7) 10/21/18 14:54 Absolute Basophils 0.0 k/mm3 (0.0-0.1) 10/21/18 14:54 PT 50.7 Seconds (9.1-10.7) H 10/21/18 14:54 INR (Anticoag Therapy) 5.47 INR (0.92-1.08) H* 10/21/18 14:54 pCO2 39.5 mmHg (35.0-48.0) 10/21/18 14:40 pO2 58.3 mmHg (83.0-108.0) L 10/21/18 14:40 HCO3 24.6 mmol/L (21.0-28.0) 10/21/18 14:40 Total CO2 25.8 mmol/L (19.0-24.0) H 10/21/18 14:40 Base Excess 0.1 mmol/L (-2.0-3.0) 10/21/18 14:40 ABG pH 7.41 (7.35-7.45) 10/21/18 14:40 ABG O2 Sat (Measured) 90.7 % (94.0-98.0) L 10/21/18 14:40 Sodium 138 mmol/L (132-142) 10/21/18 14:54 Plasma Sodium 139 mmol/L (130-142) 10/21/18 14:54 Potassium 4.9 mmol/L (3.4-4.6) H 10/21/18 14:54 Chloride 97 mmol/L (97-106) 10/21/18 14:54 Carbon Dioxide 39.5 mmol/L (24-32.6) H 10/21/18 14:54 Anion Gap 6.4 mmol/L (6.8-13.8) L 10/21/18 14:54 BUN 23 mg/dL (6-23) D 10/21/18 14:54 Creatinine 0.86 mg/dL (0.4-1.4) 10/21/18 14:54 Est GFR (Non-Af Amer) 93 mL/min (60-130) D 10/21/18 14:54 BUN/Creatinine Ratio 26.7 (9.0-21.6) H 10/21/18 14:54 Random Glucose 183 mg/dL (70-110) H 10/21/18 14:54 Lactic Acid, Venous 0.9 mmol/L (0.4-2.0) 10/21/18 14:54 Calcium 8.8 mg/dL (7.9-10.9) 10/21/18 14:54 Calcium Adj for Albumin 9.5 mg/dL (8.4-10.2) 10/21/18 14:54 Total Bilirubin 0.4 mg/dL (0.0-1.1) 10/21/18 14:54 AST 27 U/L (0-48) 10/21/18 14:54 ALT 33 U/L (19-67) 10/21/18 14:54 Alkaline Phosphatase 62 U/L (50-170) 10/21/18 14:54 Troponin I 0.055 ng/mL (0.00-0.10) 10/21/18 14:54 Total Protein 6.5 gm/dL (6.2-8.2) 10/21/18 14:54 Albumin 2.7 gm/dl (3.4-5.0) L 10/21/18 14:54 Influenza Type A Ag Negative (NEGATIVE) 10/21/18 15:30 Influenza Type B Ag Negative (NEGATIVE) 10/21/18 15:30 Assessment/Plan - Narrative Narrative: 73-year-old male with a past medical history of anxiety, AAA, asthma, BPH, CAD, COPD on 2 L of home oxygen, depression, esophageal cancer presents with complaints of shortness of breath. Chest x-ray shows questionable right lower lobe retrocardiac opacity which could represent atelectasis versus pulmonary infiltrate consider pneumonia. His dose of Levaquin was given in the emergency department and he will be admitted for observation. - Assessment/Plan (1) Pneumonia Assessment: Any Levaquin and oxygen supplementation Problem: Acute Qualifiers: (2) Supratherapeutic INR Assessment: Hold warfarin today and repeat in the morning. Problem: Acute (3) COPD (chronic obstructive pulmonary disease) Assessment: Continue with oxygen supplementation and resume home meds. Problem: Chronic Qualifiers: (4) Hypertension Assessment: Resume home meds. Problem: Chronic Qualifiers:
[2018-10-21] MEDS ORDERED: traZODone HCL 150 MG TABLET PO PRN (20:00)
[2018-10-21] MEDS ORDERED: clonazePAM 0.5 MG TABLET PO ONE (20:16)
[2018-10-21] MEDS: ALBUTEROL SULFATE/IPRATROPIUM 3 ML NEBU IH PRN (20:49)
[2018-10-21] MEDS ORDERED: TAMSULOSIN HCL 0.4 MG CAP.SR.24H PO SCH (21:00)
[2018-10-21] MEDS ORDERED: rOPINIRole HCL 0.5 MG TABLET PO SCH (21:00)
[2018-10-21] MEDS: PANTOPRAZOLE SODIUM 40 MG TABLET.EC PO SCH (21:12)
[2018-10-21 21:20] LABS: Prothrombin Time (Patient) 50.9 Seconds (9.1-10.7)
[2018-10-21 21:23] LABS: INR 5.49 INR (0.92-1.08)
[2018-10-22] MEDS: ALBUTEROL SULFATE/IPRATROPIUM 3 ML NEBU IH PRN (02:58)
[2018-10-22 05:47] LABS: Hemoglobin 11.3 gm/dL (13.5-18.0); Mean Cell Volume 99.5 fl (78-100); Mean Corpuscular Hemoglobin 30.4 pg (27-31); Mean Corpuscular Hgb Conc 30.5 g/dl (32-36); Mean Platelet Volume 9.5 fl (8-11.3); Neutrophil # 6.9 K/mm3 (1.3-6.0); Neutrophil % 85.7 % (42-75.0); Platelet Count 94 K/mm3 (150-450); Red Blood Count 3.72 M/mm3 (4.7-6.0); Red Cell Distribution Width 14.3 % (11.5-14.0); White Blood Count 8.1 K/mm3 (4.0-10.5)
[2018-10-22 05:58] LABS: Albumin * 2.5 gm/dl (3.4-5.0); Anion Gap 5.7 mmol/L (6.8-13.8); Bilirubin, Total 0.4 mg/dL (0.0-1.1); Ca. Corrected For Albumin 9.3 mg/dL (8.4-10.2); Calcium * 8.4 mg/dL (7.9-10.9); Carbon Dioxide 35.5 mmol/L (24-32.6); Potassium 4.2 mmol/L (3.4-4.6); Total Protein 5.9 gm/dL (6.2-8.2)
[2018-10-22] MEDS ORDERED: predniSONE 20 MG TABLET PO SCH (09:00)
[2018-10-22] MEDS ORDERED: ROSUVASTATIN CALCIUM 10 MG TABLET PO SCH ×2 (09:00→21:00)
[2018-10-22] MEDS ORDERED: AMIODARONE HCL 200 MG TABLET PO SCH (09:00)
[2018-10-22] MEDS ORDERED: PROMETHAZINE HCL 25 MG TABLET PO SCH (09:00)
[2018-10-22] MEDS ORDERED: METOPROLOL SUCCINATE 50 MG TABLET.SA PO SCH (09:00)
[2018-10-22] MEDS ORDERED: TIOTROPIUM BROMIDE 5 CAP INHALER IH SCH (09:00)
[2018-10-22] MEDS ORDERED: METOPROLOL SUCCINATE 100 MG TABLET.SA PO SCH (09:00)
--- NOTE | 2018-10-22 09:28 | PN ---
Progess Note - Interim Date: 10/22/18 Time: 09:25 Narrative: 10/22/18 09:25 Noted increase in hypercarbia on recent blood gases. Patient more confused. Added bipap. 30% O2. Will repeat ABGs shortly.
[2018-10-22] MEDS: PANTOPRAZOLE SODIUM 40 MG TABLET.EC PO SCH (09:36)
[2018-10-22] MEDS: MORPHINE SULFATE 2 MG/ML DISP.SYRIN IV PRN ×4 (09:37→13:35)
[2018-10-22] MEDS ORDERED: LORazepam 2 MG/ML DISP.SYRIN IV SCH (12:15)
[2018-10-22] MEDS ORDERED: ACETAMINOPHEN 325 MG TABLET PO PRN (12:24)
[2018-10-22] MEDS ORDERED: ONDANSETRON HCL/PF 2 MG/ML VIAL IV PRN (12:24)
[2018-10-22] MEDS ORDERED: ALBUTEROL SULFATE 2.5 MG/0.5 ML VIAL.NEB IH SCH (12:30)
[2018-10-22] MEDS ORDERED: PIPERACILLIN SODIUM/TAZOBACTAM 2.25 GM VIAL IV SCH (12:30)
[2018-10-22] MEDS ORDERED: PIPERACILLIN SODIUM/TAZOBACTAM 3.375 GM in DEXTROSE 5 % IN WATER 100 ML IV SCH ×2 (12:30)
[2018-10-22] MEDS: ALBUTEROL SULFATE 2.5 MG/0.5 ML VIAL.NEB IH SCH ×3 (12:30→19:25)
[2018-10-22] MEDS ORDERED: ALBUTEROL SULFATE/IPRATROPIUM 3 ML NEBU IH PRN (12:45)
[2018-10-22] MEDS: LORazepam 2 MG/ML DISP.SYRIN IV SCH ×5 (13:03→14:10)
[2018-10-22] MEDS ORDERED: LORazepam 2 MG/ML DISP.SYRIN IV PRN (14:06)
--- NOTE | 2018-10-22 15:35 | HP ---
Chief Complaint - Chief Complaint Date of Service: 10/22/18 Time of Service: 12:00 Chief Complaint: Pneumonia History of Present Illness: This 73 y/o male presented to the ED for trouble breathing. He was in the [facility] overnight 2 nights ago and diagnosed with pneumonia. He was given IV Vanco and levaquin. He was discharged yesterday morning but has been doing poorly at the [facility] facility and so was sent here. He has needed increased oxygen over his 2L NC to keep his sats up. He seems confused here. Denies acute pain. Nothing seems to make this better. Moving makes it worse. Very little history is available from the patient. He has a past medical history of anxiety, AAA, asthma, BPH, CAD, COPD on 2 L of home oxygen, depression, esophageal cancer 19 years ago treated surgically with a stomach pullup. presents with complaints of shortness of breath. His CXR her shows questionable right lower lobe retrocardiac opacity which could represent atelectasis versus pulmonary infiltrate consider pneumonia. His dose of Levaquin was given in the emergency department and he will be admitted for observation. Since admission, he has not done well, worsening through the day today. His primary life threatening problem is acute on chronic respiratory failure, hypoxemic and hypercapnic. He is intermittently confused. I saw him at noon today, but did not have an opportunity to prepare this document until now. By the time I saw him, he and his family decided for comfort care only. Using medications was ok, however. Through today, we had used bipap, adjusting settings as needed. I was planning on intubation, but just then he and his family had decided against invasive measures, as well as bipap and further testing. They and he want him to be comfortable. As an outpatient he has been steadily declining due to COPD. He has atrial fibrillation so is on coumadin. His INR was high yesterday and today. We have held his coumadin since admission. We did not order VTE prophylaxis because he is already on a blood thinner. In the ER he was negative for influenza. His wbc progress has been 10.2-8.1 Hgb 11.9-11.3 INR 5.47-5.49 RDW slightly elevated. platelets 113-94 chemistries significant for K 4.9-4.2, protein 5.9 and albumin 2.5 ABGs generally showing hypoxemia and hypercarbia. pH has mabel normal. He has had no fever, chills or sweats. Pulse has ranged from 77-100. BP slightly high. RR about 30. O2 sats 80-100. So: he was treated for pneumonia in [place], then returned to his care facility where he did poorly, then brought here. Levaquin was started again. He has severe underlying lung disease, is aspiration risk due to his esophageal surgery, is malnutriated with low protein and albumin resulting in worsening immune system dysfunction in combination with his advanced age, and finally, he worsened on outpatient Levaquin treatment. He is therefore high risk. I discussed antibiotic choices with one of our pharmacists, Sangeeta Bowens, and we together decided on Zosyn as giving more appropriate coverage. We plan no more lab work because of his comfort care status. By the time I saw him this noon, he was very restless, becoming more and more so when we talked about more invasive options or further evaluations. We had started him on as needed morphine for restlessness, 1 mg every 2 hours as needed. This helped somewhat for a while, but then he became ever more aggit ated and restless. We changed the morphine dose and added as needed ativan. The goal is to keep him comfortable. Medical History (Last Reviewed 10/22/18 @ 16:48 by Hardy Caro MD) End stage COPD (Acute) Atrial fibrillation (Acute) Esophageal cancer (Acute) Neck fracture (Resolved) Onset Date: Unknown Vitamin B 12 deficiency (Acute) Onset Date: Unknown Depression (Chronic) Onset Date: Unknown COPD (chronic obstructive pulmonary disease) (Chronic) Onset Date: Unknown CAD (coronary artery disease) (Chronic) Onset Date: Unknown BPH (benign prostatic hyperplasia) (Chronic) Onset Date: Unknown Asthma (Chronic) Onset Date: Unknown Anxiety (Chronic) Onset Date: Unknown Anorexia (Acute) Onset Date: ~10/10/16 AAA (abdominal aortic aneurysm) (Chronic) Onset Date: ~2015 Cardiac disease Surgical History: Surgical History (Last Reviewed 10/22/18 @ 16:48 by aHrdy Caro MD) History of esophageal surgery (Acute) History of total left knee replacement (TKR) History of arthroscopy of shoulder Onset Date: ~2014 History of colonoscopy Onset Date: ~2015 History of lobectomy of lung Onset Date: ~1979 History of penile implant Onset Date: Unknown Family History: Family History (Last Reviewed 10/22/18 @ 16:48 by Hardy Caro MD) Mother Cancer Father CAD (coronary artery disease) Social History: Patient Lives/Resources [employer] Utilized Occupation Retired Preferred Language [place] Do you have any tenriism or Yes: Jew cultural preference? Smoking Status Former smoker Have you smoked in the past 12 No months Do you dip or chew tobacco No Abuse History No History of abuse Psych History No pertinent hx Alcohol Use none Drug Use none (Last Updated 09/12/18 @ 17:49 by Hardy Caro MD) No Social History Section defined Review Of Systems (GEN) - Review of Systems Generalized/Overall Review: Present: Weakness, Fatigue EENTM: Absent: Eye Pain, Ear Pain, Throat Pain Respiratory: Present: Cough, Shortness of Breath, Wheezing Cardiac: Present: No Symptoms Reported Abdominal: Absent: Nausea, Abdominal Pain Genitourinary: Absent: Burning Musculoskeletal: Present: Joint Pain, Back Pain Neurological: Present: Weakness Skin: Present: No Symptoms Reported Endocrine: Present: Intolerance to Cold, Intolerance to Heat Misc: All systems neg except as marked Immunizations: IMMUNIZATION HX Immunizations Up to Date Yes History of Influenza Vaccine Yes Hx Pneumococcal Vaccination Yes Allergies/Adverse Reactions: Allergies Allergy/AdvReac Type Severity Reaction Status Date / Time prednisone Allergy Mild Hives Verified 10/21/18 14:24 simvastatin Allergy Unknown Unknown Verified 10/21/18 14:24 Iodinated Contrast- Oral and AdvReac Severe "coded" Verified 10/21/18 14:24 IV Dye [Iodinated Contrast Media - IV Dye] cephalexin AdvReac Intermediate Nausea Verified 10/21/18 14:24 codeine AdvReac Mild nausea Verified 10/21/18 14:24 Home Medications: HOME MEDICATIONS Budesonide [Pulmicort Respules] 2 ml INHALATION BID 09/23/16 [Last Taken 06/16/18] Ipratropium Jameson 0.2 mg INHALATION QID 09/23/16 [Last Taken 06/16/18] Nitroglycerin [Nitrostat] 1 tab SUBLINGUAL Q5M 09/23/16 [Last Taken Unknown] Pantoprazole Sodium 40 mg PO BID 09/23/16 [Last Taken 06/16/18] Tramadol HCl [Rybix Odt] 50 mg PO BID PRN 09/23/16 [Last Taken Unknown] Albuterol Sulfate [Albuterol Sulfate 2.5 MG/0.5ML] 2.5 mg INHALATION Q2H PRN #0 vial.neb 10/03/16 [Last Taken 06/16/18] arformoterol 15 mcg/2 mL solution for nebulization 2 ml IH BID 06/11/18 [Last Taken 06/16/18] cyclobenzaprine 10 mg tablet 5 - 10 mg PO TID #60 tab 06/28/18 [Last Taken Unknown] trazodone 100 mg tablet 200 mg PO HS PRN #60 tab 06/28/18 [Last Taken Unknown] metoprolol succinate ER 50 mg tablet,extended release 24 hr 100 mg PO DAILY tab 07/26/18 [Last Taken Unknown] amiodarone 200 mg tablet 200 mg PO DAILY #60 tab 07/28/18 [Last Taken Unknown] clonazepam 0.5 mg tablet 0.5 mg PO BID #60 tab 08/12/18 [Last Taken Unknown] diltiazem 30 mg tablet 30 mg PO TID #90 tab 09/02/18 [Last Taken Unknown] tamsulosin 0.4 mg capsule 0.4 mg PO HS #30 cap 09/02/18 [Last Taken Unknown] ropinirole 0.5 mg tablet 0.5 mg PO HS #90 tab 09/07/18 [Last Taken Unknown] rosuvastatin 5 mg tablet 5 mg PO DAILY #90 tab 09/07/18 [Last Taken Unknown] Warfarin Sodium 3 mg PO DAILY 09/18/18 [Last Taken Unknown] promethazine 25 mg tablet 25 mg PO DAILY #30 tab 09/23/18 [Last Taken Unknown] gabapentin 300 mg capsule 300 mg PO DAILY #30 cap 10/18/18 [Last Taken Unknown] Acetaminophen [Tylenol] 650 mg PO Q6H PRN 10/22/18 [Last Taken Unknown] Methylprednisolone Sod Succ/Pf [Solu-MEDROL] 40 mg IV Q8H 10/22/18 [Last Taken Unknown] Vancomycin/0.9 % Sod Chloride [Vanco 1 Gram/250 ml-0.9% NaCl] 1 gm IV Q12H [Last Taken Unknown] Exam - Exam Vital Signs: Vital Signs - Last Taken Temp 36.4 C 10/22/18 11:00 Pulse 89 10/22/18 11:05 Resp 20 10/22/18 11:00 BP 182/100 H 10/22/18 11:00 Pulse Ox 94 10/22/18 11:00 Constitutional: Present: Well developed, Moderate distress, Elderly, Thin and frail. Absent: Well nourished ENT Exam: Present: normal ENT inspection Eye Exam: bilateral eye: normal inspection Neck: Present: normal inspection. Absent: lymphadenopathy (R), lymphadenopathy (L), thyromegaly Back Exam: Present: normal inspection Breasts: Present: Exam deferred Respiratory: Present: respiratory distress, rhonchi, wheezing Cardiovascular/Chest: Present: regular rate, rhythm, no edema, no gallop, no JVD, no murmur Peripheral Pulses: carotid (R): 1+, carotid (L): 1+ Abdomen: Present: Normal bowel sounds, soft, nontender, no hepatospenomegaly, no masses /Rectal: Present: Exam deferred Extremity: Present: normal inspection Skin Exam: Present: normal color, no cyanosis, cool/dry Lymphatic: Present: no adenopathy Neurologic: Present: motor weakness, other Eye contact: Present: uncooperative. Absent: good eye contact, normal speech Thoughts: Absent: no apparent hallucination, incoherent Diagnostic Studies: Abnormal Lab Results 10/21/18 10/22/18 10/22/18 Range/Units 20:47 05:35 05:35 RBC 3.72 L (4.7-6.0) M/mm3 Hgb 11.3 L (13.5-18.0) gm/dL Hct 37.0 L (42.0-52.0) % MCHC 30.5 L (32-36) g/dl RDW 14.3 H (11.5-14.0) % Plt Count 94 L (150-450) K/mm3 Neutrophils % 85.7 H (42-75.0) % Lymphocytes % 7.4 L (20-51) % Neutrophils # 6.9 H (1.3-6.0) K/mm3 Lymphocytes # 0.60 L (1.5-3.5) k/mm3 PT 50.9 H (9.1-10.7) Seconds INR (Anticoag Therapy) 5.49 H* (0.92-1.08) INR pCO2 (35.0-48.0) mmHg pO2 (83.0-108.0) mmHg HCO3 (21.0-28.0) mmol/L Total CO2 (19.0-24.0) mmol/L Base Excess (-2.0-3.0) mmol/L ABG O2 Sat (Measured) (94.0-98.0) % Carbon Dioxide 35.5 H (24-32.6) mmol/L Anion Gap 5.7 L (6.8-13.8) mmol/L BUN/Creatinine Ratio 25.0 H (9.0-21.6) Total Protein 5.9 L (6.2-8.2) gm/dL Albumin 2.5 L (3.4-5.0) gm/dl 10/22/18 10/22/18 10/22/18 Range/Units 07:17 09:30 10:40 RBC (4.7-6.0) M/mm3 Hgb (13.5-18.0) gm/dL Hct (42.0-52.0) % MCHC (32-36) g/dl RDW (11.5-14.0) % Plt Count (150-450) K/mm3 Neutrophils % (42-75.0) % Lymphocytes % (20-51) % Neutrophils # (1.3-6.0) K/mm3 Lymphocytes # (1.5-3.5) k/mm3 PT (9.1-10.7) Seconds INR (Anticoag Therapy) (0.92-1.08) INR pCO2 61.8 H 66.5 H 62.4 H (35.0-48.0) mmHg pO2 68.7 L 65.2 L 64.4 L (83.0-108.0) mmHg HCO3 34.8 H 38.7 H 35.0 H (21.0-28.0) mmol/L Total CO2 36.7 H 40.8 H 36.9 H (19.0-24.0) mmol/L Base Excess 7.6 H 11.1 H 7.8 H (-2.0-3.0) mmol/L ABG O2 Sat (Measured) 92.8 L 91.8 L 91.3 L (94.0-98.0) % Carbon Dioxide (24-32.6) mmol/L Anion Gap (6.8-13.8) mmol/L BUN/Creatinine Ratio (9.0-21.6) Total Protein (6.2-8.2) gm/dL Albumin (3.4-5.0) gm/dl Microbiology 10/21/18 14:40 Blood Culture - Preliminary Blood NO GROWTH 24 HOURS 10/21/18 14:54 Blood Culture - Preliminary Blood NO GROWTH 24 HOURS Laboratory Results WBC 8.1 K/mm3 (4.0-10.5) D 10/22/18 05:35 RBC 3.72 M/mm3 (4.7-6.0) L 10/22/18 05:35 Hgb 11.3 gm/dL (13.5-18.0) L 10/22/18 05:35 Hct 37.0 % (42.0-52.0) L 10/22/18 05:35 MCV 99.5 fl (78-100) 10/22/18 05:35 MCH 30.4 pg (27-31) 10/22/18 05:35 MCHC 30.5 g/dl (32-36) L 10/22/18 05:35 RDW 14.3 % (11.5-14.0) H 10/22/18 05:35 Plt Count 94 K/mm3 (150-450) L 10/22/18 05:35 MPV 9.5 fl (8-11.3) 10/22/18 05:35 Immature Gran % (Auto) 0.40 % (0.001-0.429) 10/22/18 05:35 Immature Gran # (Auto) 0.03 K/mm3 (0.000-0.0310) 10/22/18 05:35 Neutrophils % 85.7 % (42-75.0) H 10/22/18 05:35 Lymphocytes % 7.4 % (20-51) L 10/22/18 05:35 Monocytes % 6.4 % (0.0-9) 10/22/18 05:35 Eosinophils % 0.0 % (0.0-3.0) 10/22/18 05:35 Basophils % 0.1 % (0.0-1.0) 10/22/18 05:35 Nucleated RBC % 0.0 k/mm3 (0-1) 10/22/18 05:35 Neutrophils # 6.9 K/mm3 (1.3-6.0) H 10/22/18 05:35 Lymphocytes # 0.60 k/mm3 (1.5-3.5) L 10/22/18 05:35 Monocytes # 0.5 k/mm3 (0.0-1.0) 10/22/18 05:35 Eosinophils # 0.0 k/mm3 (0.0-0.7) 10/22/18 05:35 Absolute Basophils 0.0 k/mm3 (0.0-0.1) 10/22/18 05:35 PT 50.9 Seconds (9.1-10.7) H 10/21/18 20:47 INR (Anticoag Therapy) 5.49 INR (0.92-1.08) H* 10/21/18 20:47 pCO2 62.4 mmHg (35.0-48.0) H 10/22/18 10:40 pO2 64.4 mmHg (83.0-108.0) L 10/22/18 10:40 HCO3 35.0 mmol/L (21.0-28.0) H 10/22/18 10:40 Total CO2 36.9 mmol/L (19.0-24.0) H 10/22/18 10:40 Base Excess 7.8 mmol/L (-2.0-3.0) H 10/22/18 10:40 ABG pH 7.37 (7.35-7.45) 10/22/18 10:40 ABG O2 Sat (Measured) 91.3 % (94.0-98.0) L 10/22/18 10:40 Sodium 134 mmol/L (132-142) 10/22/18 05:35 Plasma Sodium 134 mmol/L (130-142) 10/22/18 05:35 Potassium 4.2 mmol/L (3.4-4.6) 10/22/18 05:35 Chloride 97 mmol/L (97-106) 10/22/18 05:35 Carbon Dioxide 35.5 mmol/L (24-32.6) H 10/22/18 05:35 Anion Gap 5.7 mmol/L (6.8-13.8) L 10/22/18 05:35 BUN 19 mg/dL (6-23) 10/22/18 05:35 Creatinine 0.76 mg/dL (0.4-1.4) 10/22/18 05:35 Est GFR (Non-Af Amer) 107 mL/min (60-130) 10/22/18 05:35 BUN/Creatinine Ratio 25.0 (9.0-21.6) H 10/22/18 05:35 Random Glucose 93 mg/dL (70-110) D 10/22/18 05:35 Lactic Acid, Venous 0.9 mmol/L (0.4-2.0) 10/21/18 14:54 Calcium 8.4 mg/dL (7.9-10.9) 10/22/18 05:35 Calcium Adj for Albumin 9.3 mg/dL (8.4-10.2) 10/22/18 05:35 Total Bilirubin 0.4 mg/dL (0.0-1.1) 10/22/18 05:35 AST 26 U/L (0-48) 10/22/18 05:35 ALT 29 U/L (19-67) 10/22/18 05:35 Alkaline Phosphatase 57 U/L (50-170) 10/22/18 05:35 Troponin I 0.055 ng/mL (0.00-0.10) 10/21/18 14:54 Total Protein 5.9 gm/dL (6.2-8.2) L 10/22/18 05:35 Albumin 2.5 gm/dl (3.4-5.0) L 10/22/18 05:35 Influenza Type A Ag Negative (NEGATIVE) 10/21/18 15:30 Influenza Type B Ag Negative (NEGATIVE) 10/21/18 15:30 Assessment/Plan - Assessment/Plan (1) Terminal care Assessment: He and his family say that giving medications is ok, but they want no more testing or invasive procedures. Therefore, at the present time we will continue antibiotics and other medications as tolerated. Problem: Acute (2) Pneumonia Assessment: retrocardiac opacity. will continue IV antibiotics Problem: Acute Qualifiers: Pneumonia type: due to unspecified organism Laterality: right (3) Respiratory failure with hypoxia and hypercapnia Problem: Acute Qualifiers: Chronicity: acute on chronic Qualified Code(s): J96.21 - Acute and chronic respiratory failure with hypoxia; J96.22 - Acute and chronic respiratory failure with hypercapnia (4) Failure of outpatient treatment Problem: Acute (5) Supplemental oxygen dependent Problem: Chronic (6) End stage COPD Problem: Chronic (7) Malnutrition Problem: Acute Qualifiers: Malnutrition type: protein-calorie malnutrition Protein-calorie malnutrition severity: moderate Qualified Code(s): E44.0 - Moderate protein- calorie malnutrition (8) Generalized weakness Problem: Chronic (9) Supratherapeutic INR Assessment: give his terminal comfort care designation, we will not due any more INRs nor will we restart his coumadin. also, due to comfort care status, he does not need VTE prophylaxis. Problem: Acute (10) Atrial fibrillation Problem: Chronic Qualifiers: Atrial fibrillation type: chronic Qualified Code(s): I48.2 - Chronic atrial fibrillation
[2018-10-22] MEDS ORDERED: traZODone HCL 50 MG TABLET PO PRN (21:00)
[2018-10-22] MEDS ORDERED: SACCHAROMYCES BOULARDII 250 MG CAPSULE PO SCH (21:00)
[2018-10-22 22:00] VITALS: BP 00/00
--- NOTE | 2018-10-25 12:06 | DS ---
Discharge Summary - Provider Primary Care Provider: Hardy Caro Admitting Clinician: Hardy Caro Attending Physician on Admission: Hardy Caro Pronouncing Clinician: Cristina Marley - Date and Time Date of : 10/22/18 Time of : 19:36 - Diagnosis/Cause of (1) Cardiorespiratory arrest Problems: Acute (2) Pneumonia Problems: Acute (3) COPD (chronic obstructive pulmonary disease) Problems: Acute - Summary Details (narrative): I was notified that the patient who was previously signed off to me on Thursday evening by Dr. Caro had at 7:36 PM. The patient was hospitalized by Dr. Mccollum who is his PCP for pneumonia and respiratory failure. Patient and his family had made the decision to have him placed on comfort measures and that they did not want any further treatment or investigations into his condition. Nursing staff notified me that the patient continued to have respiratory difficulty and eventually started gasping until going into respiratory arrest and subsequently . No intervention at that time was made and all parties involved were notified. Procedures Performed: none - Additional Data Confirmation of as documented by pronouncing clinician: no pulse, no respirations, no heart sounds Family: at bedside Practitioner(Attending/PCP) notified: Yes Attending physician: Cristina Marley Was code activated: No Autopsy requested: No Organ Bank notified: Yes Hospice patient: No
== END 2018-10-22 19:36 | disposition expired | DRG 193 ==
LOC: MS 14:14 → ER 14:14 → MS 18:24
PROVIDERS: ADMIT Internal Medicine; ATTEND Allergy & Immunology
CPT/HCPCS: 36415; 36600; 71020; 71046; 80053; 82803; 83605; 84484; 85025; 85610; 87040; 87081; 87400; 87449; 93005; 94640; 94660; 94664; 96361; 96365; 96375; 96376; 99285